=== PATIENT | female | born 1950 | race Caucasian/White ===

== ENCOUNTER 2016-10-22 12:16 | Inpatient (IN) ==
[2016-10-22 12:50] LABS: Basophils % 0.1 %; Eosinophils % 0.1 %; Hemoglobin 10.5 g/dL (11.5-15.4); Immature Granulocytes % 0.7 % (0-4); Lymphocytes # 1.1 K/mcL (0.6-4.6); Lymphocytes % 6.7 %; Mean Corpuscular HGB Conc 30.9 g/dL (31.6-35.5); Mean Corpuscular Hemoglobin 26.3 pg (28.0-33.3); Mean Corpuscular Volume 85.2 fL (83.0-100.0); Monocytes # 0.6 K/mcL (0.0-1.3); Neutrophils # 14.1 K/mcL (1.6-8.9); Platelet Count 369 K/mcL (140-400); Red Blood Count 3.99 M/mcL (3.82-4.97); Red Cell Distribution Width 15.1 % (11.5-14.5); Segmented Neutrophils % 88.4 %
[2016-10-22] MEDS ORDERED: Ondansetron 4 MG/2 ML VIAL IV ONE (12:59)
[2016-10-22] MEDS ORDERED: *HR* HYDROmorphone (PF) 1 MG/ML SYRINGE IV ONE (12:59)
[2016-10-22 13:02] LABS: INR 1.3; Prothrombin Time 14.3 Seconds (9.4-12.1)
[2016-10-22 13:04] LABS: Activated Partial Thrombo Time 29.4 Seconds (26.0-36.0)
[2016-10-22 13:06] LABS: Albumin 2.6 g/dL (3.5-5.0); Albumin/Globulin Ratio 0.5 (1.1-2.2); Bilirubin,Direct 0.3 mg/dL (0.0-0.5); Bilirubin,Indirect 0.2 mg/dL (0.0-1.2); Bilirubin,Total 0.5 mg/dL (0.2-1.2); Calcium 9.4 mg/dL (8.6-10.8); Globulin 4.9 g/dL (2.4-3.5); Magnesium 2.2 mg/dL (1.6-2.6); Potassium 4.7 mEq/L (3.5-4.5); Total Protein 7.5 g/dL (6.0-8.3)
[2016-10-22] MEDS ORDERED: Levofloxacin 750 MG/150 ML 750 MG/150 ML BAG IVPB ONE (13:44)
[2016-10-22] MEDS ORDERED: Ipratropium/Albuterol Neb 3 ML IH ONE (13:44)
--- NOTE | 2016-10-22 13:46 | Emergency Department Note ---
Disposition Clinical Impression: Community acquired pneumonia, CONNOR (acute kidney injury), Dehydration Dyspnea Qualifiers: Dyspnea type: dyspnea on exertion Qualified Code(s): R06.09 - Other forms of dyspnea Disposition: Admitted As Inpatient Condition: Good Referrals: Georgina Kennedy MD [Primary Care Provider] - Forms: ED Satisfaction Letter SOB HPI - General Chief Complaint: ED Shortness of Breath/Dyspnea Stated Complaint: JENNIFER Time Seen by Provider: 10/22/16 12:20 Source: patient, EMS Limitations: no limitations Nursing Notes Reviewed: Yes Vital Signs Reviewed: Yes - History of Present Illness Patient is a 66-year-old female who is a current diagnosis of bladder cancer but is not started treatment is here for 3 days of cough and chills. She states she is having some right-sided chest wall pain and complains of cough and scant sputum production and shortness of breath. Also note she has a history of tachyarrhythmia with 2 ablations and 2 cardioversions in the past and just recently within the last week. Amiodarone due to lack of efficacy by Dr. Silvestre Pt Subjective Complaint: shortness of breath, cough Onset (ago): day(s) (3) Context: recent illness Severity: moderate Consistency/Duration: intermittent Improves with: nothing Worsens with: nothing Known history of: COPD, PE Associated symptoms: Reports: chest pain (right sided), pain with inspiration, fever, cough Treatment prior to arrival: none Cough present: Yes Cough Description: Involuntary Cough Frequency: Intermittent - Related Data Home Medications Medication Instructions Recorded Confirmed Amiodarone [Cordarone] 200 mg PO HS 08/21/16 08/21/16 Atorvastatin [Lipitor] 40 mg PO HS 08/21/16 08/21/16 Lactobacillus Combo No.10 1 each PO HS 08/21/16 08/21/16 [Probiotic] Lisinopril [Zestril] 40 mg PO HS 08/21/16 08/21/16 Metoprolol [Lopressor] 50 mg PO BID 08/21/16 08/21/16 Multivitamin [Multi-Day Vitamins] 1 each PO DAILY 08/21/16 08/21/16 Previous Rx's Medication Instructions Recorded Docusate [Colace] 100 mg PO BID PRN #60 capsule 08/22/16 OxyCODONE/APAP 5/325 [Percocet 1 each PO Q4HR PRN #15 tablet 08/22/16 5/325 MG] Allergies Allergy/AdvReac Type Severity Reaction Status Date / Time No Known Allergies Allergy Verified 08/21/16 09:40 All systems ED: reviewed and negative except as stated. Constitutional: Reports: chills Cardiovascular: Reports: chest pain Respiratory: Reports: cough, dyspnea Past Medical History - Past Medical History Source: patient, old records reviewed, obtained from family, nursing notes reviewed Medical history: Reports: cancer, COPD, DVT, GERD, hyperlipidemia, hypertension Surgical history: Reports: other Psychiatric history: Reports: anxiety, depression - Social History Smoking Status: Current every day smoker Smokeless Tobacco Status: No Alcohol use: Reports: none Drug use: Reports: none Physical Exam - General Limitations: no limitations General appearance: alert, in distress - Head Head exam: atraumatic, normocephalic, normal inspection - Eye Eye exam: Present: normal appearance, PERRL, EOMI - Expanded Eye Exam Pupils: Left: reactive - ENT ENT exam: normal exam, normal oropharynx, mucous membranes moist - Expanded ENT Exam External ear exam: Present: normal external inspection Mouth exam: Present: normal external inspection Teeth exam: Present: normal inspection Throat exam: Present: normal inspection - Neck Neck exam: Present: normal inspection, full ROM, trachea midline - Chest Chest inspection: Present: normal inspection, symmetric chest wall rise - Respiratory Respiratory exam: Present: prolonged expiratory phase - Cardiovascular Cardiovascular exam: Present: tachycardia - Abdominal Exam Abdominal exam: Present: soft, Non-Tender. Absent: tenderness, distention, guarding, rebound, rigidity - Extremities Exam Extremities exam: Present: normal inspection, full ROM. Absent: tenderness, pedal edema - Expanded Upper Extremity Exam Shoulder exam: Present: normal inspection, full ROM Arm exam: Present: normal inspection, full ROM Elbow exam: Present: normal inspection, full ROM Forearm/Wrist exam: Present: normal inspection, full ROM Hand exam: Present: normal inspection, full ROM Vascular exam: Normal: capillary refill, radial pulse - Expanded Lower Extremity Exam Hip/Pelvis exam: Present: normal inspection, full ROM Upper leg exam: Present: normal inspection, full ROM Knee exam: Present: normal inspection, full ROM Lower leg exam: Present: normal inspection, full ROM Ankle exam: Present: normal inspection, full ROM Foot/toe exam: Present: normal inspection, full ROM Neurovascular/Tendon exam: Absent: motor deficit, sensory deficit, tendon deficit - Back Exam Back exam: Present: normal inspection, full ROM. Absent: tenderness - Neurological Exam Neurological exam: Present: alert, oriented X3 - Expanded Neurological Exam Patient oriented to: Present: person, place, time Coma Scale Eye Opening: Spontaneous Coma Scale Motor Response: Obeys Commands Coma Scale Verbal Response: Oriented Coma Scale Total: 15 - Psychiatric Psychiatric exam: Present: normal affect, normal mood - Skin Skin exam: Present: warm, dry, intact, normal color Course Vital Signs Temperature 98.8 F 10/22/16 12:18 Pulse Rate 128 10/22/16 12:18 Respiratory Rate 24 10/22/16 12:18 Blood Pressure 106/80 10/22/16 12:18 O2 Sat by Pulse Oximetry 89 10/22/16 12:18 Temperature 98.8 F 10/22/16 12:18 Pulse Rate 128 10/22/16 13:33 Respiratory Rate 18 10/22/16 13:59 Blood Pressure 104/70 10/22/16 13:33 O2 Sat by Pulse Oximetry 96 10/22/16 13:59 Oxygen Delivery Oxygen Delivery Nasal Cannula Shortness of Breath/Dyspnea - [facility] Narrative Medical decision making narrative: The patient has acute kidney injury so today we will be unable to order a CTA of her chest she does have a history of PE we will start her on heparin protocol she will be admitted to the medicine service. - Differential Diagnosis Likely: acute exacerbation of chronic obstructive airways disease, congestive heart failure, pneumonia, asthma with exacerbation, pulmonary embolism, pneumothorax, arrhythmia - Medical Records Medical records reviewed: Yes I reviewed the patient's medical records. - Lab Data Result diagrams: 10/22/16 12:41 10/22/16 12:41 Lab Results 10/22/16 10/22/16 10/22/16 Range/Units 12:41 12:41 12:41 WBC 15.9 H (4.3-11.1) K/mcL RBC 3.99 (3.82-4.97) M/mcL Hgb 10.5 L (11.5-15.4) g/dL Hct 34.0 L (35.3-44.9) % MCV 85.2 (83.0-100.0) fL MCH 26.3 L (28.0-33.3) pg MCHC 30.9 L (31.6-35.5) g/dL RDW 15.1 H (11.5-14.5) % Plt Count 369 (140-400) K/mcL MPV 10.0 (9.4-12.4) fL Immature Gran % 0.7 (0-4) % Seg Neutrophils % 88.4 % Lymphocytes % 6.7 % Monocytes % 4.0 % Eosinophils % 0.1 % Basophils % 0.1 % Neutrophils # 14.1 H (1.6-8.9) K/mcL Lymphocytes # 1.1 (0.6-4.6) K/mcL Monocytes # 0.6 (0.0-1.3) K/mcL Eosinophils # 0.0 (0.0-0.6) K/mcL Basophils # 0.0 (0.0-0.2) K/mcL PT 14.3 H (9.4-12.1) Seconds INR 1.3 APTT 29.4 (26.0-36.0) Seconds D-Dimer 2187 H (0-500) ng/mLFEU Sodium 138 (136-145) mEq/L Potassium 4.7 H (3.5-4.5) mEq/L Chloride 104 (98-109) mEq/L Carbon Dioxide 22 (19-29) mEq/L BUN 37 H (7-20) mg/dL Creatinine 1.89 H (0.57-1.11) mg/dL Est GFR ( Amer) 32 L (> 60) Est GFR (Non-Af Amer) 27 L (> 60) BUN/Creatinine Ratio 20 (6-26) Glucose 100 H (70-99) mg/dL Calculated Osmolality 295 (280-300) Lactic Acid (0.5-2.2) mmol/L Calcium 9.4 (8.6-10.8) mg/dL Magnesium 2.2 (1.6-2.6) mg/dL Total Bilirubin 0.5 (0.2-1.2) mg/dL Direct Bilirubin 0.3 (0.0-0.5) mg/dL Indirect Bilirubin 0.2 (0.0-1.2) mg/dL AST 11 (5-34) Units/L ALT 11 (0-55) Units/L Alkaline Phosphatase 120 (38-126) Units/L Troponin I (0-0.03) ng/mL Serum Total Protein 7.5 (6.0-8.3) g/dL Albumin 2.6 L (3.5-5.0) g/dL Globulin 4.9 H (2.4-3.5) g/dL Albumin/Globulin Ratio 0.5 L (1.1-2.2) 10/22/16 10/22/16 Range/Units 12:41 12:41 WBC (4.3-11.1) K/mcL RBC (3.82-4.97) M/mcL Hgb (11.5-15.4) g/dL Hct (35.3-44.9) % MCV (83.0-100.0) fL MCH (28.0-33.3) pg MCHC (31.6-35.5) g/dL RDW (11.5-14.5) % Plt Count (140-400) K/mcL MPV (9.4-12.4) fL Immature Gran % (0-4) % Seg Neutrophils % % Lymphocytes % % Monocytes % % Eosinophils % % Basophils % % Neutrophils # (1.6-8.9) K/mcL Lymphocytes # (0.6-4.6) K/mcL Monocytes # (0.0-1.3) K/mcL Eosinophils # (0.0-0.6) K/mcL Basophils # (0.0-0.2) K/mcL PT (9.4-12.1) Seconds INR APTT (26.0-36.0) Seconds D-Dimer (0-500) ng/mLFEU Sodium (136-145) mEq/L Potassium (3.5-4.5) mEq/L Chloride (98-109) mEq/L Carbon Dioxide (19-29) mEq/L BUN (7-20) mg/dL Creatinine (0.57-1.11) mg/dL Est GFR ( Amer) (> 60) Est GFR (Non-Af Amer) (> 60) BUN/Creatinine Ratio (6-26) Glucose (70-99) mg/dL Calculated Osmolality (280-300) Lactic Acid 0.9 (0.5-2.2) mmol/L Calcium (8.6-10.8) mg/dL Magnesium (1.6-2.6) mg/dL Total Bilirubin (0.2-1.2) mg/dL Direct Bilirubin (0.0-0.5) mg/dL Indirect Bilirubin (0.0-1.2) mg/dL AST (5-34) Units/L ALT (0-55) Units/L Alkaline Phosphatase (38-126) Units/L Troponin I 0.00 (0-0.03) ng/mL Serum Total Protein (6.0-8.3) g/dL Albumin (3.5-5.0) g/dL Globulin (2.4-3.5) g/dL Albumin/Globulin Ratio (1.1-2.2) - Radiology Data Radiology results reviewed: Yes I reviewed the patient's radiology results. - EKG Data EKG attestation: Yes I reviewed and interpreted this EKG. Rate: Reports: tachycardia Rhythm: Reports: NSR [place]/QRS: Reports: RBBB Interpretation: Reports: nonspecific ST-T wave changes Critical Care Time Critical Care Time: Yes Total Critical Care Time: 40 Attestation: Critical care performed: Time is exclusive of separately billable procedures. Time includes: direct patient care, patient reassessment, coordination of patient care, interpretation of data (laboratory data, radiology data, and respiratory data), review of patient's medical records, medical consultation and documentation of patient care. Procedures included in critical care time: Procedures excluded from critical care time:
[2016-10-22] MEDS ORDERED: *HR* Heparin 5,000 UNIT/ML VIAL IVP ONE (14:18)
[2016-10-22] MEDS ORDERED: *HR* Heparin 5,000 UNIT/ML VIAL IVP PRN ×2 (14:18)
[2016-10-22] MEDS ORDERED: Heparin 25,000 UNIT/500 ML D5W 25,000 UNIT/500 ML MLS IVC SCH (14:30)
[2016-10-22] MEDS: 0.9 % Sodium Chloride 1,000 ML IVC SCH ×2 (14:35→20:30)
[2016-10-22 15:18] LABS: Hematocrit 30.3 % (35.3-44.9); Hemoglobin 9.3 g/dL (11.5-15.4); Mean Corpuscular HGB Conc 30.7 g/dL (31.6-35.5); Mean Corpuscular Hemoglobin 26.3 pg (28.0-33.3); Mean Corpuscular Volume 85.6 fL (83.0-100.0); Mean Platelet Volume 10.1 fL (9.4-12.4); Platelet Count 318 K/mcL (140-400); Red Blood Count 3.54 M/mcL (3.82-4.97); Red Cell Distribution Width 15.2 % (11.5-14.5)
[2016-10-22] MEDS ORDERED: Amiodarone Premix 150 MG/100 ML BAG IVPB ONE (16:28)
[2016-10-22] MEDS ORDERED: Amiodarone Premix 360 MG/200 ML BAG IVC ONE (16:36)
[2016-10-22] MEDS ORDERED: Amiodarone Premix 360 MG/200 ML BAG IVC SCH (16:45)
[2016-10-22] MEDS: predniSONE 20 MG TABLET PO SCH (17:00)
--- NOTE | 2016-10-22 18:00 | Internal Med History&Physical ---
Date of Encounter: 10/22/16 Time of Encounter: 17:57 Assessment and Plan (1) Suspected pulmonary embolism Current visit: Yes Status: Acute Discuss the case with urology service to results of VQ scan are available patient will be kept empirically on heparin drip. Watch for signs of urinary bleeding. IV contrast will be risky because creatinine is 1.89. (2) Atrial flutter Current visit: Yes Status: Acute Amiodarone has been discontinued a week ago because of concern over interaction with other medications for her cancerlike zofran etc... Discussed with cardiology service restart amiodarone drip. She is currently in atrial flutter rate 120. She was taken off anticoagulation for her a fib/flutter because of urethral bleeding Qualifiers: Qualified Code(s): I48.92 - Unspecified atrial flutter (3) Bladder tumor Current visit: No Status: Acute She supposed to follow-up with oncology for decision regarding chemotherapy (4) Community acquired pneumonia Current visit: Yes Status: Acute Zosyn. I will cover Pseudomonas because of recent hospitalization within the past 3 months (5) CONNOR (acute kidney injury) Current visit: Yes Status: Acute Hydration. She received a liter of fluid in the ER continue normal saline 100 ml/h Internal Medicine - H&P: HPI Chief complaint: chest pain and cough History of present illness: Ms. Felton is a 66 year old female who presents to the emergency room today with the main complain of chest pain and cough. 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 For the past 2 days she has been noticing severe pleuritic chest pain in the right lower and upper chest worsens with deep inspiration or coughing. Her cough is nonproductive. She notices shortness of breath with any exertion. No reported fever that she had chills. She denies any current hematuria. Past Med Surg Social Fam HX - Past Medical History Medical history: cancer, COPD, DVT, GERD, hyperlipidemia, hypertension Psychiatric history: anxiety, depression - Past Surgical History Surgical History: other - Social History Smoking Status: Current every day smoker Smokeless Tobacco Status: No Alcohol use: none Drug use: none Internal Medicine - H&P: Meds Amiodarone [Cordarone] 200 mg PO HS 08/21/16 [History] Atorvastatin [Lipitor] 40 mg PO HS 08/21/16 [History] Lactobacillus Combo No.10 [Probiotic] 1 cap PO HS 08/21/16 [History] Lisinopril [Zestril] 40 mg PO HS 08/21/16 [History] Metoprolol [Lopressor] 50 mg PO BID 08/21/16 [History] Multivitamin [Multi-Day Vitamins] 1 tab PO DAILY 08/21/16 [History] Docusate [Colace] 100 mg PO BID PRN #60 capsule 08/22/16 [Rx] OxyCODONE/APAP 5/325 [Percocet 5/325 MG] 1 tab PO Q4HR PRN 10/22/16 [History] Allergies No Known Allergies Allergy (Verified 08/21/16 09:40) All Systems PM: A 10-system review of systems was performed and is negative for pertinent findings except as documented above in the HPI. Review of systems: 10 points of view of systems is negative except for HPI - Constitutional Vitals: Temp Pulse Resp BP Pulse Ox 98.8 F 91 20 85/60 97 10/22/16 12:18 10/22/16 17:01 10/22/16 17:11 10/22/16 17:11 10/22/16 17:01 Exam: Gen.: patient is alert oriented not in distress. Cardiac: Normal S1 S2 no additional sounds or murmurs chest: diminished air entry in right base abdomen soft nontender nondistended normal bowel sounds lower extremity: lax calf muscles neuro no focal deficit Internal Med - H&P Results - Labs CBC & Chem 7: 10/22/16 15:11 10/22/16 12:41
--- NOTE | 2016-10-22 18:13 | Urology - Consult Note ---
Date of Encounter: 10/22/16 Time of Encounter: 18:11 - Assessment and Plan (1) Bladder cancer Current Visit: Yes Status: Acute Assessment and plan: Patient has T2 bladder cancer likely higher stage secondary to fixation of bladder on pelvic examination during exam and anesthesia. Okay for patient to start anticoagulation as needed for possible pulmonary embolism. We will manage hematuria if it develops as needed. 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 The patient had stopped her atrial fibrillation anticoagulation medication secondary to bleeding. Patient states that she has been having clear urine since the surgery. Patient was admitted today secondary to acute shortness of breath. Primary team has a concern for pulmonary embolism. Her serum creatinine is also up to 1.8. Her last CT scan was in July of this year which showed no hydronephrosis. Primary team may want to start anticoagulation and requested my opinion. To note the patient did state that she went to [facility] for evaluation of her T2 bladder cancer. Patient was told that she needed neoadjuvant chemotherapy. She was sent to [place] for this even though the patient lives in [place]. Patient was unsure why this was done. She has not started chemotherapy. Past Med Surg Social Fam HX - Past Medical History Medical history: cancer, COPD, DVT, GERD, hyperlipidemia, hypertension Psychiatric history: anxiety, depression - Past Surgical History Surgical History: other - Social History Smoking Status: Current every day smoker Smokeless Tobacco Status: No Alcohol use: none Drug use: none Medications and Allergies Amiodarone [Cordarone] 200 mg PO HS 08/21/16 [History] Atorvastatin [Lipitor] 40 mg PO HS 08/21/16 [History] Lactobacillus Combo No.10 [Probiotic] 1 cap PO HS 08/21/16 [History] Lisinopril [Zestril] 40 mg PO HS 08/21/16 [History] Metoprolol [Lopressor] 50 mg PO BID 08/21/16 [History] Multivitamin [Multi-Day Vitamins] 1 tab PO DAILY 08/21/16 [History] Docusate [Colace] 100 mg PO BID PRN #60 capsule 08/22/16 [Rx] OxyCODONE/APAP 5/325 [Percocet 5/325 MG] 1 tab PO Q4HR PRN 10/22/16 [History] Allergies No Known Allergies Allergy (Verified 08/21/16 09:40) Review of Systems - Constitutional no chills - EENT Nose, mouth and throat: no dizziness - Cardiovascular chest pain - Respiratory dyspnea - Gastrointestinal no abdominal pain - Musculoskeletal no back pain - Integumentary no erythema - Neurological no confusion - Psychiatric no anxiety Exam Initial Vital Signs Temp Pulse Resp BP Pulse Ox 98.8 F 128 24 106/80 89 10/22/16 12:18 10/22/16 12:18 10/22/16 12:18 10/22/16 12:18 10/22/16 12:18 - General physical appearance Present: well developed - Eyes Present: PERRL - ENT Present: normal nares - Neck Present: no masses - Respiratory Present: other (Mild to moderate difficulties breathing) Urology Results - Labs 10/22/16 15:11 10/22/16 12:41 Abnormal lab results WBC 14.2 K/mcL (4.3-11.1) H 10/22/16 15:11 RBC 3.54 M/mcL (3.82-4.97) L 10/22/16 15:11 Hgb 9.3 g/dL (11.5-15.4) L 10/22/16 15:11 Hct 30.3 % (35.3-44.9) L 10/22/16 15:11 MCH 26.3 pg (28.0-33.3) L 10/22/16 15:11 MCHC 30.7 g/dL (31.6-35.5) L 10/22/16 15:11 RDW 15.2 % (11.5-14.5) H 10/22/16 15:11 Neutrophils # 14.1 K/mcL (1.6-8.9) H 10/22/16 12:41 PT 14.3 Seconds (9.4-12.1) H 10/22/16 12:41 D-Dimer 2187 ng/mLFEU (0-500) H 10/22/16 12:41 Potassium 4.7 mEq/L (3.5-4.5) H 10/22/16 12:41 BUN 37 mg/dL (7-20) H 10/22/16 12:41 Creatinine 1.89 mg/dL (0.57-1.11) H 10/22/16 12:41 Est GFR ( Amer) 32 (> 60) L 10/22/16 12:41 Est GFR (Non-Af Amer) 27 (> 60) L 10/22/16 12:41 Glucose 100 mg/dL (70-99) H 10/22/16 12:41 Creatine Kinase 22 Units/L (29-168) L 10/22/16 12:41 Albumin 2.6 g/dL (3.5-5.0) L 10/22/16 12:41 Globulin 4.9 g/dL (2.4-3.5) H 10/22/16 12:41 Albumin/Globulin Ratio 0.5 (1.1-2.2) L 10/22/16 12:41 All other labs normal. Consult Discharge Plan - Plan Referrals: Georgina Kennedy MD [Primary Care Provider] -
--- NOTE | 2016-10-22 18:30 | Cardiology Consult Note ---
Date of Encounter: 10/22/16 Time of Encounter: 18:26 Assessment and Plan (1) Bladder tumor Current Visit: No Status: Acute She supposed to follow-up with oncology for decision regarding chemotherapy Per Cardiology - watch closely for urologic bleeding. (2) Dyspnea Current Visit: Yes Status: Acute Qualifiers: Dyspnea type: dyspnea on exertion Qualified Code(s): R06.09 - Other forms of dyspnea (3) Atrial flutter Current Visit: Yes Status: Acute Per Cardiology No great treatment options for BP. Amio gtt is reasonable Short term - patient would like something different. Will give 2 doses IV Dig tonight Reassess HR in the morning. Qualifiers: Qualified Code(s): I48.92 - Unspecified atrial flutter Discussion w patient/family: The assessment and plan as outlined above was discussed with the patient and/or family members who expressed understanding and agreement. All questions were answered. Thank you for involving us in the care of your patient. Please call with any questions. History of Present Illness Consult date: 10/22/16 Consult reason: Tachycardia, Aflutter Chief complaint: SOB History of present illness: Ms. Felton is a 66 year old female Well known to Dr. Silvestre with a h/o Atrial arrythmias - previously on Amio, which was stopped recently. She also has known Bladder cancer - needing Chemo. Given recent concerns and efficacy of Amio as well as possible interactions, this med was stopped. Nonetheless, the patient presents with a few day h/o progressive SOB - ultimately admitted thru the ER today. Work up for SOB is ongoing ? PNA or PE. Nonetheless, she is on A/c. In the presence of the above, she has been noted to be Tachy with HRs in the 120 's-130s with a low BP. Given this CV consult requested to manage meds for HR control. Other than SOB and her chronic nausea she denies any complaints at this time to me. Of note she is not eager to use Amio due to inability to give her nausea meds. Past Med Surg Social Fam HX - Past Medical History Medical history: cancer, COPD, DVT, GERD, hyperlipidemia, hypertension Psychiatric history: anxiety, depression - Past Surgical History Surgical History: other - Social History Smoking Status: Current every day smoker Smokeless Tobacco Status: No Alcohol use: none Drug use: none Medications and Allergies Amiodarone [Cordarone] 200 mg PO HS 02/20/17 [History] Atorvastatin [Lipitor] 40 mg PO HS 08/21/16 [History] Lactobacillus Combo No.10 [Probiotic] 1 cap PO HS 08/21/16 [History] Lisinopril [Zestril] 40 mg PO HS 08/21/16 [History] Metoprolol [Lopressor] 50 mg PO BID 08/21/16 [History] Multivitamin [Multi-Day Vitamins] 1 tab PO DAILY 08/21/16 [History] Docusate [Colace] 100 mg PO BID PRN #60 capsule 08/22/16 [Rx] OxyCODONE/APAP 5/325 [Percocet 5/325 MG] 1 tab PO Q4HR PRN 10/22/16 [History] Allergies No Known Allergies Allergy (Verified 08/21/16 09:40) All Systems Review: A 10-system review of systems was performed and is negative for pertinent findings except as documented above in the HPI. - Cardiovascular Cardiovascular: dyspnea at rest, dyspnea on exertion, rapid heart rate - Respiratory Respiratory: dyspnea - Gastrointestinal Gastrointestinal: nausea Physical Examination BP at bedside ~ 80-90s Systolic with HR ~ 100-120. RR- 16 General: Conversant, No Apparent Distress HEENT: Atraumatic, Mucus Membranes Moist Neck: No JVD, Normal carotid pulses Cardiac: Normal S1 and S2, Other (Tachy - HR ~110 while at bedside. ) Lungs: Normal Breath Sounds, No Wheeze, Rales, Rhonchi Neuro: Alert and responsive, No focal deficits noted Abdomen: Soft, Non-Tender Skin: No rashes noted on visualized skin Musculoskeletal: No Chest Wall Tenderness Extremities: No Clubbing, No Cyanosis Results 10/22/16 15:11 10/22/16 12:41 - EKG Interpretation EKG results cardiology: personally reviewed (Probable Aflutter with RVR) Consult Discharge Plan - Plan Referrals: Georgina Kennedy MD [Primary Care Provider] -
[2016-10-22] MEDS: Piperacillin/Tazobactam 3.375 GM in D5% in Water (Mini-Bag+) 100 ML IVPB SCH (20:30)
[2016-10-22] MEDS: *HR* Digoxin 0.5 MG/2 ML AMPUL IVP SCH (20:46)
[2016-10-22] MEDS: *HR* Morphine 2 MG/ML SYRINGE IVP PRN (20:46)
[2016-10-22] MEDS: Famotidine 20 MG/2 ML VIAL IVP SCH (20:46)
[2016-10-22] MEDS ORDERED: *HR* Promethazine 25 MG/ML VIAL IVP ONE (23:29)
[2016-10-22] MEDS ORDERED: *HR* HYDROmorphone (PF) 1 MG/ML SYRINGE IVP ONE (23:29)
[2016-10-23 00:35] LABS: Basophils % 0.1 %; Eosinophils % 0.4 %; Hematocrit 27.7 % (35.3-44.9); Hemoglobin 8.5 g/dL (11.5-15.4); Immature Granulocytes % 0.6 % (0-4); Lymphocytes # 1.2 K/mcL (0.6-4.6); Lymphocytes % 12.7 %; Mean Corpuscular HGB Conc 30.7 g/dL (31.6-35.5); Mean Corpuscular Hemoglobin 27.1 pg (28.0-33.3); Mean Corpuscular Volume 88.2 fL (83.0-100.0); Mean Platelet Volume 10.5 fL (9.4-12.4); Monocytes # 0.5 K/mcL (0.0-1.3); Monocytes % 5.5 %; Neutrophils # 7.7 K/mcL (1.6-8.9); Platelet Count 277 K/mcL (140-400); Red Blood Count 3.14 M/mcL (3.82-4.97); Red Cell Distribution Width 15.3 % (11.5-14.5); Segmented Neutrophils % 80.7 %
[2016-10-23 00:46] LABS: Calcium 8.5 mg/dL (8.6-10.8); Potassium 4.4 mEq/L (3.5-4.5)
[2016-10-23] MEDS: *HR* Morphine 2 MG/ML SYRINGE IVP PRN ×5 (01:23→23:07)
[2016-10-23] MEDS ORDERED: *HR* Digoxin 0.5 MG/2 ML AMPUL ONE (03:55)
[2016-10-23] MEDS: *HR* Digoxin 0.5 MG/2 ML AMPUL IVP SCH ×3 (04:05→15:34)
[2016-10-23] MEDS: Piperacillin/Tazobactam 3.375 GM in D5% in Water (Mini-Bag+) 100 ML IVPB SCH ×2 (05:44→15:32)
[2016-10-23] MEDS: Famotidine 20 MG/2 ML VIAL IVP SCH (05:44)
[2016-10-23] MEDS: 0.9 % Sodium Chloride 1,000 ML IVC SCH ×6 (05:57→18:14)
[2016-10-23] MEDS: predniSONE 20 MG TABLET PO SCH (08:34)
--- NOTE | 2016-10-23 09:23 | Cardiology Progress Note ---
Date of Encounter: 10/23/16 Time of Encounter: 09:20 Assessment and Plan (1) Atrial fibrillation and flutter Current Visit: Yes Status: Chronic Known hx of A-Fib and Flutter. PO Amiodarone was stopped on Sunday by Dr. Malik Silvestre since it was not effective in rhythm control. Now RVR rate up to 120s. Amiodarone gtt was ordered overnight, which pt refused since it was recently stopped by Dr. Silvestre. IV Digoxin loading was ordered. She has received 2 doses of 0.125mg IV. Will give 2 doses of 0.250mg 6 hours apart to help with rate control. BP currently >110 systolic. Will consider low dose BB if BP will tolerate. Continue to monitor and see how pt responds to digoxin. Pt reports worsened dyspnea. Will check echo. Pt denies chest pain or palpitations. Pt was previously on Eliquis for anticoagulation, but developed hematuria in setting of bladder tumor, so anticoagulation was stopped. Currently on heparin gtt, but HGB has dropped from 10.5 to 9.3, then 8.5. Will stop heparin gtt and start DVT prophylaxis heparin dosing. Continue to follow. (2) Dyspnea Current Visit: Yes Status: Acute Acute onset of worsened dyspnea. CXR possible PNA with effusion. VQ scan low probability for PE. Echo 2014 EF 50% with normal diastolic function. Recheck echo. Qualifiers: Dyspnea type: dyspnea on exertion Qualified Code(s): R06.09 - Other forms of dyspnea Discussion w patient/family: The assessment and plan as outlined above was discussed with the patient and/or family members who expressed understanding and agreement. All questions were answered. Thank you for involving us in the care of your patient. Please call with any questions. I will discuss all the above with Dr. Cade and make changes as necessary. Subjective Principal diagnosis: A-Fib/flutter, Bladder cancer Interval history: Pt complains of severe right upper quadrant pain and dyspnea this AM. Denies chest pain or palpitations. 24 hour tele AVG HR 92, A-Fib/Flutter. Pt refused IV amiodarone overnight because Dr. Malik Silvestre stopped her PO Amiodarone as outpt on Sunday, stating it was not working. She has received 2 doses of IV Digoxin. HR currently as high as 120s at bedside. Objective Vital Signs, Last 4 Hours Temp Pulse Resp BP Pulse Ox 10/23/16 07:22 98.1 F 87 18 114/74 95 Vital Signs Temp Pulse Resp BP Pulse Ox 10/23/16 07:22 98.1 F 87 18 114/74 95 10/23/16 04:30 83 10/23/16 03:24 98.0 F 84 17 116/75 96 10/23/16 00:05 99 10/22/16 23:24 98.3 F 98 19 119/72 97 10/22/16 20:30 93 10/22/16 20:09 98.6 F 120 18 118/80 95 10/22/16 18:20 98.1 F 99 20 103/73 94 10/22/16 18:10 96 92 10/22/16 17:11 20 85/60 10/22/16 17:01 91 18 85/60 97 10/22/16 16:19 91 20 88/59 97 10/22/16 15:20 111 20 88/68 96 10/22/16 14:41 125 20 96/77 96 10/22/16 13:59 18 96 10/22/16 13:33 128 20 104/70 96 10/22/16 13:08 128 20 126/88 96 10/22/16 12:25 94 10/22/16 12:18 98.8 F 128 24 106/80 89 Intake and Output 10/22/16 10/23/16 10/23/16 23:59 07:59 15:59 Intake Total 150 / 150 1369 / 1369 Balance 150 / 150 1369 / 1369 Intake: IV Fluids 150 / 150 1369 / 1369 0.9 % Sodium Chloride 1, 1000 / 1000 000 ML @ 80 mls/hr IVC . [id number] [facility] Rx#: [id number] Heparin 25,000 UNIT/500 269 / 269 ML D5W 25,000 unit In 500 ml @ 14 UNIT/KG/HR 19. 178 mls/hr IVC .Q24H [facility] Rx#:[id number] Levaquin 750mg/150 mL 750 150 / 150 mg In 150 ml @ 100 mls/ hr IVPB ONCE ONE Rx#: [id number] Zosyn 3.375 GM In 100 / 100 Dextrose 5% (Minibag+) 100 ML 100 ML @ 25 mls/hr IVPB Q12H [facility] Rx#: [id number] Other: # Urine Diapers 1 1 Weight 69.6 kg Patient Weight 10/23/16 23:59 Weight 69.6 kg General: Conversant HEENT: Atraumatic, Normocephaly, Mucus Membranes Moist Neck: No JVD, Normal carotid pulses Cardiac: Other (irregularly irregular) Lungs: Normal Breath Sounds, No Wheeze, Rales, Rhonchi Neuro: Alert and responsive, No focal deficits noted Abdomen: Soft, Other (RUQ tenderness) Skin: No rashes noted on visualized skin Musculoskeletal: No Chest Wall Tenderness Extremities: No Clubbing, No Cyanosis, No Edema, Normal Pulses Results 10/23/16 00:18 10/23/16 00:18 Lab Results 10/22/16 10/23/16 10/23/16 20:53 00:18 00:18 WBC 9.6 Hgb 8.5 L Hct 27.7 L Plt Count 277 APTT Sodium 138 Potassium 4.4 Chloride 107 Carbon Dioxide 20 BUN 31 H Creatinine 1.64 H Glucose 72 Calcium 8.5 L Magnesium 2.0 Troponin I 0.00 10/23/16 10/23/16 00:18 04:35 WBC Hgb Hct Plt Count APTT 29.4 Sodium Potassium Chloride Carbon Dioxide BUN Creatinine Glucose Calcium Magnesium Troponin I 0.00 Short CBC 10/23/16 10/22/16 10/22/16 Range/Units 00:18 15:11 12:41 WBC 9.6 14.2 H 15.9 H (4.3-11.1) K/mcL Hgb 8.5 L 9.3 L 10.5 L (11.5-15.4) g/dL Hct 27.7 L 30.3 L 34.0 L (35.3-44.9) % Plt Count 277 318 369 (140-400) K/mcL Neutrophils # 7.7 14.1 H (1.6-8.9) K/mcL BMP 10/23/16 10/22/16 Range/Units 00:18 12:41 Sodium 138 138 (136-145) mEq/L Potassium 4.4 4.7 H (3.5-4.5) mEq/L Chloride 107 104 (98-109) mEq/L Carbon Dioxide 20 22 (19-29) mEq/L BUN 31 H 37 H (7-20) mg/dL Creatinine 1.64 H 1.89 H (0.57-1.11) mg/dL Glucose 72 100 H (70-99) mg/dL Calcium 8.5 L 9.4 (8.6-10.8) mg/dL Cardiac Enzymes 10/23/16 10/22/16 10/22/16 Range/Units 00:18 20:53 12:41 Troponin I 0.00 0.00 0.00 (0-0.03) ng/mL Liver Function 10/22/16 Range/Units 12:41 Total Bilirubin 0.5 (0.2-1.2) mg/dL Direct Bilirubin 0.3 (0.0-0.5) mg/dL AST 11 (5-34) Units/L ALT 11 (0-55) Units/L Alkaline Phosphatase 120 (38-126) Units/L Albumin 2.6 L (3.5-5.0) g/dL Impressions Chest X-Ray 10/22/16 12:28 IMPRESSION: Airspace disease at the right lung base may represent pneumonia with suspected small effusion. Asymmetric pulmonary edema could have a similar appearance. Clinical correlation and radiographic follow-up after treatment is recommended. D/ / Tam Parra MD / Tam Parra MD Interpreting Provider: Tam Parra MD Pulmonary Perfusion Imaging 10/22/16 16:55 IMPRESSION: 1. Low probability for pulmonary embolism. 2. Heterogeneous distribution of radiotracer suggestive of chronic obstructive pulmonary disease. D/ / Eduardo Storey MD / Eduardo Storey MD Interpreting Provider: Eduardo Storey MD Active Medications Atorvastatin Calcium (Lipitor) 40 mg PO HS LINDA Stop: 04/23/17 21:01 Last Admin: 10/22/16 20:45 Dose: 40 mg Docusate Sodium (Colace) 100 mg PO BID PRN; Protocol PRN Reason: Constipation Stop: 04/23/17 16:46 Famotidine (Pepcid) 20 mg IVP Q12HR LINDA PRN Reason: Protocol Stop: 04/23/17 18:01 Last Admin: 10/23/16 05:44 Dose: 20 mg Heparin Sodium (Porcine) (Heparin) 4,800 unit 70 unit/kg (4800 unit) IVP Q6HR PRN PRN Reason: SEE COMMENTS Stop: 04/23/17 14:19 Last Admin: 10/23/16 05:43 Dose: 4,800 unit Heparin Sodium (Porcine) (Heparin) 2,400 unit 35 unit/kg (2400 unit) IVP Q6H PRN PRN Reason: SEE COMMENTS Stop: 04/23/17 14:19 Sodium Chloride (0.9 % Sodium Chloride) 1,000 mls @ 3,750 mls/hr IVC .Q16M LINDA Stop: 04/23/17 13:31 Last Admin: 10/23/16 08:55 Dose: Not Given Heparin Sodium/Dextrose (Heparin 25,000 Unit/500 Ml D5w) 25,000 unit in 500 mls @ 19.178 mls/hr IVC .Q24H LINDA; 14 UNIT/KG/HR PRN Reason: Protocol Stop: 04/23/17 14:31 Last Titration: 10/23/16 05:46 Dose: 18.32 unit/kg/hr, 25.1 mls/hr Amiodarone HCl/Dextrose (Amiodarone 360mg/200ml Drip Premix) 360 mg in 200 mls @ 16.667 mls/hr IVC CONT LINDA PRN Reason: 0.5 MG/MIN Stop: 04/23/17 16:46 Last Admin: 10/22/16 21:54 Dose: Not Given Sodium Chloride (0.9 % Sodium Chloride) 1,000 mls @ 80 mls/hr IVC .[id number] LINDA Stop: 04/23/17 16:46 Last Admin: 10/23/16 05:57 Dose: 80 mls/hr Piperacillin Sod/Tazobactam (Sod 3.375 gm/ Dextrose) 100 mls @ 25 mls/hr IVPB Q12H LINDA PRN Reason: Protocol Stop: 04/23/17 17:01 Last Admin: 10/23/16 05:44 Dose: 25 mls/hr Morphine Sulfate (Morphine Sulfate) 1 mg IVP Q4HR PRN PRN Reason: Pain Stop: 04/23/17 16:41 Last Admin: 10/23/16 05:42 Dose: 1 mg Prednisone (Prednisone) 40 mg PO DAILY LINDA Stop: 04/23/17 17:01 Last Admin: 10/23/16 08:34 Dose: 40 mg - Imaging and Cardiology Chest Xray: report reviewed Echo: report reviewed - EKG Interpretation EKG results cardiology: other (24 hour tele AVG HR 92, A-Fib/Flutter) - VTE Documentation of Mechanical Device: Intermittent pneumatic compression device Consult Discharge Plan - Plan Referrals: Georgina Kennedy MD [Primary Care Provider] -
--- NOTE | 2016-10-23 10:03 | Internal Med Progress Note ---
Date of Encounter: 10/23/16 Time of Encounter: 10:01 - Assessment and plan (1) Suspected pulmonary embolism Current Visit: Yes Status: Acute Assessment and plan: Patient presented with significant respiratory distress, pleuritic chest pain and underlying extensive history of malignancy and noted to have very elevated d -dimer. CT angiogram of chest could not be done due to renal dysfunction. Ventilation perfusion lung scan shows low probability of PE. We will get bilateral lower extremity venous Dopplers and continue anticoagulation with IV heparin if positive. Patient is noted to have almost 2 g drop in hemoglobin, continue to monitor closely while on anticoagulation. Urology on board for possible hematuria related to underlying urothelial malignancy. (2) Community acquired pneumonia Current Visit: Yes Status: Acute Assessment and plan: Chest x-ray reviewed independently, shows right lower lobe infiltrates. Continue IV antibiotics-Zosyn due to multiple recent health care facility visits and underlying cancer. Follow-up blood cultures. Continue supportive care and supplemental oxygen. (3) Atrial flutter Current Visit: Yes Status: Chronic Assessment and plan: Patient has a history of atrial flutter, not on long-term anticoagulation due to bleeding from bladder cancer mass. Admitted with atrial flutter with rapid ventricular response and has been started on IV amiodarone drip. However, patient refused to be started on this trip as she has recently been taken off oral amiodarone by her mammalogist as she failed rhythm control with this and it is noted to have interaction with her other medications like Zofran. She received 2 doses of IV digoxin, 0.125 mg last night and cardiology recommends 2 more doses of IV digoxin, 0.25 mg today. We will restart patient' s home dose of metoprolol 50 mg twice daily. Continue telemetry monitoring. High risk for complications. Continue anticoagulation as above. Qualifiers: Atrial flutter type: unspecified Qualified Code(s): I48.92 - Unspecified atrial flutter (4) CONNOR (acute kidney injury) Current Visit: Yes Status: Acute Assessment and plan: Could be related to dehydration and underlying pneumonia. Continue IV hydration and monitor serum creatinine closely. Currently noted to be improving. Avoid nephrotoxic agents and dose medications and antibiotics according to current creatinine clearance. (5) Chest pain Current Visit: Yes Status: Acute Assessment and plan: Patient noted to have severe right-sided pleuritic chest pain associated with nausea this morning. This could be secondary to pulmonary embolism or right lower lobe pneumonia. We will increase IV morphine and give when necessary IV Zofran and for symptomatic relief. Qualifiers: Chest pain type: chest pain on breathing Qualified Code(s): R07.1 - Chest pain on breathing (6) COPD (chronic obstructive pulmonary disease) Current Visit: Yes Status: Chronic Assessment and plan: Not noted to be in acute exacerbation. Continue when necessary bronchodilators and supplemental oxygen. Qualifiers: COPD type: unspecified COPD Qualified Code(s): J44.9 - Chronic obstructive pulmonary disease, unspecified (7) Bladder cancer Current Visit: Yes Status: Chronic Assessment and plan: Noted to have advanced bladder cancer, followed at [facility] and he has been referred to [place] for neoadjuvant chemotherapy. Urology is on board currently to assist in the event of hematuria due to ongoing anticoagulation. Consult appreciated. Qualifiers: Bladder location: overlapping sites Qualified Code(s): C67.8 - Malignant neoplasm of overlapping sites of bladder - Subjective Interval history: Noted to be in distress due to severe right chest wall pain; has dyspnea due to the pain along with nausea; no leg swelling, dizziness, weakness; reports having advanced bladder cancer; also states that her HR has been in 130s for several years as an outpatient and she was recently taken off of her Amiodarone due to failed rhythm control; - Constitutional Vitals: Temp Pulse Resp BP Pulse Ox 98.1 F 87 18 114/74 95 10/23/16 07:22 10/23/16 07:22 10/23/16 07:22 10/23/16 07:22 10/23/16 07:22 General appearance: Present: mild distress, A&O X 3, answers questions appropriately - Respiratory Respiratory exam: Present: decreased breath sounds (at right base), CTAB. Absent: accessory muscle use, rales, rhonchi, wheezes - Cardiovascular Cardiovascular exam: Present: irregular rhythm, +S1, +S2, tachycardia. Absent: diastolic murmur, gallop, rubs, systolic murmur - GI/Abdominal GI/Abdominal exam: Present: normal bowel sounds, soft, no peritoneal signs. Absent: distended, tenderness - Extremities Exam Extremities exam: Present: full ROM, warm, radial pulses palpable and symetrical. Absent: calf tenderness, cyanotic, pedal edema - Neurological Exam Neurological exam: Present: CN II-XII intact, oriented X3, no focal deficits. Absent: pronater drift, facial droop, speech deficit Internal Medicine: Result - Labs CBC & Chem 7: 10/23/16 16:06 10/23/16 00:18 Labs: Short CBC 10/23/16 Range/Units 00:18 WBC 9.6 (4.3-11.1) K/mcL Hgb 8.5 L (11.5-15.4) g/dL Hct 27.7 L (35.3-44.9) % Plt Count 277 (140-400) K/mcL Neutrophils # 7.7 (1.6-8.9) K/mcL BMP 10/23/16 00:18 Sodium 138 Potassium 4.4 Chloride 107 Carbon Dioxide 20 BUN 31 H Creatinine 1.64 H Glucose 72 Calcium 8.5 L Cardiac Enzymes 10/22/16 10/23/16 Range/Units 20:53 00:18 Troponin I 0.00 0.00 (0-0.03) ng/mL - ABG Interpretation ABG results: PT/INR, D-dimer PT 14.3 Seconds (9.4-12.1) H 10/22/16 12:41 D-Dimer 2187 ng/mLFEU (0-500) H 10/22/16 12:41 - VTE Documentation of Mechanical Device: Intermittent pneumatic compression device Consult Discharge Plan - Plan Referrals: Georgina Kennedy MD [Primary Care Provider] - 11/02/16 10:00 am
[2016-10-23] MEDS: Ondansetron 4 MG/2 ML VIAL IVP PRN ×2 (10:18→18:03)
[2016-10-23] MEDS: *HR* OxyCODONE/APAP 5/325 TABLET PO PRN ×2 (11:38→21:01)
[2016-10-23] MEDS ORDERED: *HR* Heparin 5,000 UNIT/ML VIAL IVP ONE (15:30)
[2016-10-23] MEDS ORDERED: *HR* Heparin 5,000 UNIT/ML VIAL IVP PRN (15:30)
--- NOTE | 2016-10-23 16:02 | Electrocardiograph Report ---
[place] [id number] Test Date: 2016-10-22 Pat Name: Coni Felton Department: 105 Room: 2N03 Gender: F Diet Therapist: MELISSA : 1950 Requested By: Juan A Reyes Order Number: [id number] Reading MD: Noel Rendon MD Measurements Intervals [place] Rate: 130 P: 110 WI: 203 QRS: -28 QRSD: 157 T: 61 QT: 356 QTc: 433 Interpretive Statements SINUS TACHYCARDIA RIGHT BUNDLE BRANCH BLOCK Electronically Signed On 10-23-2016 16:01:05 EDT by Noel Rendon MD
--- NOTE | 2016-10-23 16:14 | ECHO - Doppler Report ---
Echo with Saline Contrast Name: Coni Felton Date of Study: 10/23/2016 Date: 1950 Ht: 65.0 in Medical Record#: [id number] Age: 66 Wt: 153.0 lb Gender: Female BSA: 1.77 Order #: [id number] Location: [facility] Room #: 2N3 Reading Physician: Davida Elise DO Digital Strategy Director: Hoa Reyez Ordering Physician: Arnol Lynn MD Primary Physician: None Indications: Aflutter, Possible PE, Look for RV strain Impressions: LVEF 60%. Normal left ventricular size and systolic function. Indeterminate left venticular diastoic function Mildly dilated RV with normal function. Mild mitral regurgitation. Mild tricuspid regurgitation. No pulmonary hypertension. There is no evidence of a PFO with agitated saline contrast. Left Ventricular Wall Motion: Rest Echo Findings All wall segments showed normal motion. Findings: Study Quality * Technically adequate exam. ECG Findings * Atrial fib/flutter. Left Ventricle * LVEF 60%. * Normal LV chamber size, wall thickness and function. * Indeterminate diastolic function. Left Atrium * Mildly dilated left atrium. Mitral Valve * Normal mitral valve structure. * No mitral stenosis. * Mild mitral regurgitation. Aortic Valve * No aortic regurgitation. * Aortic valve not well visualized. * No aortic stenosis. Tricuspid Valve * Tricuspid valve not well visualized. * Mild tricuspid regurgitation. * Estimated RA pressure is 3 mmHg. * Estimated RVSP is 32 mmHg. * No pulmonary hypertension. Pulmonic Valve * Pulmonic valve is not well visualized. * No pulmonic stenosis. * No pulmonic regurgitation. Pulmonary Artery * Pulmonary artery not well visualized. Right Atrium * Normal right atrial size. Right Ventricle * Mildly dilated with normal function. RV is visualized in the PLAX, PSAX, apical views. Only the distal segments of the RV are not well seen in the subcostal view. Lat S Isaías 13.6cm/s. * Interatrial septum demonstrates normal shape through the cardiac cycle in the PSAX images. Interatrial Septum * No evidence of PFO by color Doppler. * No evidence of PFO with agitated saline contrast. IVC * Normal IVC dimensions and inspiratory collapse. Pericardium * There is no pericardial effusion present. Aorta * Normally sized aortic root. History Hypertension Hypercholesteremia History of Smoking Years 45 Packs 1 Family History of CAD History of CAD/PTCA 09/30/2014 a Previous Echo was performed. Contrast: Agitated saline 20 ml. Measurements: BP: 110/ 75 2D Normal Values RVIDd: 3.60 cm <2.7 cm IVSd: 1.10 cm 0.6 - 1.0 cm LVIDd: 4.10 cm 3.7 - 5.6 cm LVPWd: 1.10 cm 0.6 - 1.1 cm LVIDs: 3.10 cm 1.5 - 3.6 cm AO: 3.40 cm < 4.0 cm LA: 4.00 cm 2.0 - 4.0cm %FS: 24.40 cm >25 % LA volume: 57 Mitral Valve Peak E:.58 m/sec Peak A:.70 m/sec E/A Ratio:0.8 Peak E' Lat Isaías:19.5 cm/s Peak E' Med Isaías:8.08 cm/s E/E' Lat Ratio:3 E/E' Med Ratio:7.2 Tricuspid Valve TV Regurg Peak Grad: 29.00mmHg TV Regurg Peak Isaías: 2.67m/sec Updated by Davida Elise on 10/23/2016 4:08:42 PM electronically signed on 10/23/2016 4:11:00 PM with status of Final Wall Motion Lopes: 1=Normal, 2=Hypokinesis, 3=Akinesis, 4=Dyskinesis, 5=Aneurysmal, 6=Hyperkinetic, X=Not Visualized (Blank)=Missing
[2016-10-23 16:55] LABS: Hematocrit 29.7 % (35.3-44.9); Hemoglobin 9.2 g/dL (11.5-15.4); Immature Platelets 3.6 % (1.1-6.1); Mean Corpuscular Hemoglobin 26.7 pg (28.0-33.3); Mean Corpuscular Volume 86.3 fL (83.0-100.0); Mean Platelet Volume 10.7 fL (9.4-12.4); Red Blood Count 3.44 M/mcL (3.82-4.97)
[2016-10-23 17:04] LABS: INR 1.4; Prothrombin Time 15.6 Seconds (9.4-12.1)
[2016-10-23 17:07] LABS: Activated Partial Thrombo Time 30.3 Seconds (26.0-36.0)
--- NOTE | 2016-10-23 17:07 | Urology Progress Note ---
Date of Encounter: 10/23/16 Time of Encounter: 17:06 - Assessment and Plan (1) Bladder cancer Current Visit: Yes Status: Acute Assessment and plan: 66-year-old woman with a history of muscle invasive bladder cancer. She was referred to the [facility] and they had recommended neoadjuvant chemotherapy prior to any surgical resection. She was referred to an affiliated medical oncology group [facility]. She says this is too far for her to drive. I will contact medical oncology tomorrow to see if they can expedite coordination of care with the [facility]. Qualifiers: Bladder location: overlapping sites Qualified Code(s): C67.8 - Malignant neoplasm of overlapping sites of bladder Progress Note Narrative: 66 year old woman with muscle invasive bladder cancer. She has been admitted for atrial flutter. She says she is feeling fairly well today. Objective Initial Vital Signs Temp Pulse Resp BP Pulse Ox 98.8 F 128 24 106/80 89 10/22/16 12:18 10/22/16 12:18 10/22/16 12:18 10/22/16 12:18 10/22/16 12:18 - General physical appearance Present: well developed, well nourished, no distress - Respiratory Present: normal respiratory effort - Abdomen Present: soft - Labs 10/23/16 16:06 10/23/16 00:18 Diabetes panel 10/23/16 Range/Units 00:18 Sodium 138 (136-145) mEq/L Potassium 4.4 (3.5-4.5) mEq/L Chloride 107 (98-109) mEq/L Carbon Dioxide 20 (19-29) mEq/L BUN 31 H (7-20) mg/dL Creatinine 1.64 H (0.57-1.11) mg/dL Glucose 72 (70-99) mg/dL Calcium 8.5 L (8.6-10.8) mg/dL Calcium panel 10/23/16 Range/Units 00:18 Calcium 8.5 L (8.6-10.8) mg/dL Pituitary panel 10/23/16 Range/Units 00:18 Sodium 138 (136-145) mEq/L Potassium 4.4 (3.5-4.5) mEq/L Chloride 107 (98-109) mEq/L Carbon Dioxide 20 (19-29) mEq/L BUN 31 H (7-20) mg/dL Creatinine 1.64 H (0.57-1.11) mg/dL Glucose 72 (70-99) mg/dL Calcium 8.5 L (8.6-10.8) mg/dL Adrenal panel 10/23/16 Range/Units 00:18 Sodium 138 (136-145) mEq/L Potassium 4.4 (3.5-4.5) mEq/L Chloride 107 (98-109) mEq/L Carbon Dioxide 20 (19-29) mEq/L BUN 31 H (7-20) mg/dL Creatinine 1.64 H (0.57-1.11) mg/dL Glucose 72 (70-99) mg/dL Calcium 8.5 L (8.6-10.8) mg/dL - VTE Documentation of Mechanical Device: Intermittent pneumatic compression device Consult Discharge Plan - Plan Referrals: Georgina Kennedy MD [Primary Care Provider] - 11/02/16 10:00 am
[2016-10-23] MEDS ORDERED: *HR* Heparin 5,000 UNIT/ML VIAL SQ SCH (18:00)
[2016-10-23] MEDS: Heparin 25,000 UNIT/500 ML D5W 25,000 UNIT/500 ML MLS IVC SCH (18:13)
[2016-10-24 02:05] LABS: Basophils % 0.1 %; Hemoglobin 8.5 g/dL (11.5-15.4); Immature Granulocytes % 0.5 % (0-4); Lymphocytes # 0.8 K/mcL (0.6-4.6); Lymphocytes % 7.2 %; Mean Corpuscular HGB Conc 30.4 g/dL (31.6-35.5); Mean Corpuscular Hemoglobin 25.9 pg (28.0-33.3); Mean Corpuscular Volume 85.4 fL (83.0-100.0); Mean Platelet Volume 10.5 fL (9.4-12.4); Monocytes # 0.3 K/mcL (0.0-1.3); Monocytes % 3.1 %; Neutrophils # 9.7 K/mcL (1.6-8.9); Platelet Count 302 K/mcL (140-400); Red Blood Count 3.28 M/mcL (3.82-4.97); Segmented Neutrophils % 89.1 %
[2016-10-24 02:20] LABS: Calcium 8.6 mg/dL (8.6-10.8); Potassium 4.9 mEq/L (3.5-4.5)
[2016-10-24] MEDS: *HR* Heparin 5,000 UNIT/ML VIAL IVP PRN ×2 (02:40→09:41)
[2016-10-24] MEDS: *HR* Morphine 2 MG/ML SYRINGE IVP PRN ×3 (04:15→23:37)
[2016-10-24] MEDS: Ondansetron 4 MG/2 ML VIAL IVP PRN (04:20)
[2016-10-24] MEDS: Piperacillin/Tazobactam 3.375 GM in D5% in Water (Mini-Bag+) 100 ML IVPB SCH ×3 (04:40→21:22)
[2016-10-24] MEDS: 0.9 % Sodium Chloride 1,000 ML IVC SCH (06:26)
[2016-10-24] MEDS: *HR* OxyCODONE/APAP 5/325 TABLET PO PRN ×2 (07:30→21:20)
[2016-10-24] MEDS: predniSONE 20 MG TABLET PO SCH (09:38)
[2016-10-24] MEDS: Famotidine 20 MG/2 ML VIAL IVP SCH (09:39)
--- NOTE | 2016-10-24 10:16 | Cardiology Progress Note ---
Date of Encounter: 10/24/16 Time of Encounter: 10:00 Assessment and Plan (1) Atrial fibrillation and flutter Current Visit: Yes Status: Chronic Known hx of A-Fib and Flutter. RVR in the setting of PNA--IV digoxin load given. PO Amiodarone was stopped on Sunday by Dr. Malik Silvestre since it was not effective in rhythm control. Rate now controlled. 12 hour tele: avg HR=66 aflutter. Blood pressure improved, betablocker re-started and is stable. TTE 10/23/16: EF 60%, mildly dilated RV with normal function, mild MR and TR, normal wall mtn. Pt denies chest pain or palpitations. Pt was previously on Eliquis for anticoagulation, but developed hematuria in setting of bladder tumor, so anticoagulation was stopped. Heparin gtt d/c'ed d/t to anemia (H/H acute drop); re-started yesterday evening due to acute DVT--defer further mgmt to primary service. Cardiology will sign-off, please call with questions. Will arrange for outpatient follow-up in 2-3 weeks. (2) Dyspnea Current Visit: Yes Status: Acute Acute onset of worsened dyspnea. Likely secondary to PNA. VQ scan low probability for PE. TTE 10/23/16: EF 60%, normal wall motion. Qualifiers: Dyspnea type: dyspnea on exertion Qualified Code(s): R06.09 - Other forms of dyspnea (3) DVT (deep venous thrombosis) Current Visit: Yes Status: Acute Prelim bilateral LE duplex--DVT left calf. Restarted on Heparin gtt last night. Defer further mgmt of AC to primary service. Qualifiers: DVT location: lower extremity Affected thrombotic vein of extremity: unspecified vein of extremity Laterality: left Chronicity: acute Qualified Code(s): I82.402 - Acute embolism and thrombosis of unspecified deep veins of left lower extremity Discussion w patient/family: The assessment and plan as outlined above was discussed with the patient and/or family members who expressed understanding and agreement. All questions were answered. Thank you for involving us in the care of your patient. Please call with any questions. The patient was discussed and reviewed with Dr. Cade; Cardiology will sign-off , please call with questions. Subjective Principal diagnosis: A-Fib/flutter, Bladder cancer Interval history: Seen and examined Reports frequent cough and weakness today. Denies hematuria or abnormal/unusual bleeding overnight. Denies chest pain or discomfort. Objective Vital Signs, Last 4 Hours Temp Pulse Resp BP Pulse Ox 10/24/16 07:30 71 10/24/16 07:17 97.9 F 92 21 132/85 95 General: Conversant HEENT: Atraumatic, Normocephaly Cardiac: Normal S1 and S2, Other (irregularly irregular) Lungs: Other (Bibasilar diminished) Neuro: Alert and responsive Abdomen: Soft Skin: No rashes noted on visualized skin Musculoskeletal: No Chest Wall Tenderness Extremities: No Edema, Normal Pulses Results 10/24/16 01:04 10/24/16 01:04 Lab Results 10/23/16 10/23/16 10/23/16 11:05 16:06 16:06 WBC 11.3 H Hgb 9.2 L Hct 29.7 L Plt Count 316 INR 1.4 APTT 59.5 H D 30.3 Sodium Potassium Chloride Carbon Dioxide BUN Creatinine Glucose Calcium 10/24/16 10/24/16 10/24/16 01:04 01:04 01:04 WBC 10.9 Hgb 8.5 L Hct 28.0 L Plt Count 302 INR APTT 27.6 Sodium 139 Potassium 4.9 H Chloride 109 Carbon Dioxide 22 BUN 26 H Creatinine 1.48 H Glucose 121 H Calcium 8.6 10/24/16 09:07 WBC Hgb Hct Plt Count INR APTT 37.0 H Sodium Potassium Chloride Carbon Dioxide BUN Creatinine Glucose Calcium Active Medications Atorvastatin Calcium (Lipitor) 40 mg PO HS LINDA Stop: 04/23/17 21:01 Last Admin: 10/23/16 21:01 Dose: 40 mg Docusate Sodium (Colace) 100 mg PO BID PRN; Protocol PRN Reason: Constipation Stop: 04/23/17 16:46 Famotidine (Pepcid) 20 mg IVP DAILY LINDA PRN Reason: Protocol Stop: 04/23/17 18:01 Last Admin: 10/24/16 09:39 Dose: 20 mg Heparin Sodium (Porcine) (Heparin) 4,900 unit 70 unit/kg (4900 unit) IVP Q6HR PRN PRN Reason: SEE COMMENTS Stop: 04/24/17 15:31 Last Admin: 10/24/16 09:41 Dose: 4,900 unit Heparin Sodium (Porcine) (Heparin) 2,400 unit 35 unit/kg (2400 unit) IVP Q6H PRN PRN Reason: SEE COMMENTS Stop: 04/24/17 15:31 Sodium Chloride (0.9 % Sodium Chloride) 1,000 mls @ 80 mls/hr IVC .[id number] [facility] Stop: 04/23/17 16:46 Last Admin: 10/24/16 06:26 Dose: 80 mls/hr Piperacillin Sod/Tazobactam (Sod 3.375 gm/ Dextrose) 100 mls @ 25 mls/hr IVPB Q12H LINDA PRN Reason: Protocol Stop: 04/23/17 17:01 Last Admin: 10/24/16 04:40 Dose: 25 mls/hr Heparin Sodium/Dextrose (Heparin 25,000 Unit/500 Ml D5w) 25,000 unit in 500 mls @ 19.488 mls/hr IVC .Q24H LINDA; 14 UNIT/KG/HR PRN Reason: Protocol Stop: 04/24/17 15:31 Last Titration: 10/24/16 09:43 Dose: 22.62 unit/kg/hr, 31.5 mls/hr Metoprolol Tartrate (Lopressor) 50 mg PO BID [facility] Stop: 04/24/17 21:01 Last Admin: 10/24/16 09:38 Dose: Not Given Morphine Sulfate (Morphine Sulfate) 4 mg IVP Q4HR PRN PRN Reason: PAIN >7 Stop: 04/23/17 16:41 Last Admin: 10/24/16 04:15 Dose: 4 mg Ondansetron HCl (Zofran) 4 mg IVP Q6HR PRN; Protocol PRN Reason: Nausea And Vomiting Stop: 04/24/17 09:42 Last Admin: 10/24/16 04:20 Dose: 4 mg Oxycodone/Acetaminophen (Percocet 5/325) 1 each PO Q6HR PRN PRN Reason: Pain<7 Stop: 04/24/17 09:42 Last Admin: 10/24/16 07:30 Dose: 1 each Prednisone (Prednisone) 40 mg PO DAILY [facility] Stop: 04/23/17 17:01 Last Admin: 10/24/16 09:38 Dose: 40 mg - Imaging and Cardiology Echo: report reviewed - EKG Interpretation EKG results cardiology: personally reviewed - VTE Documentation of Mechanical Device: Intermittent pneumatic compression device Consult Discharge Plan - Plan Referrals: Georgina Kennedy MD [Primary Care Provider] - 11/02/16 10:00 am
--- NOTE | 2016-10-24 13:06 | Internal Med Progress Note ---
Date of Encounter: 10/24/16 Time of Encounter: 10:00 - Assessment and plan (1) Community acquired pneumonia Current Visit: Yes Status: Acute Assessment and plan: Chest x-ray report right lower lobe infiltrates. Continue IV antibiotics-Zosyn due to multiple recent health care facility visits and underlying cancer. Blood culturesnegative. Continue supportive care and supplemental oxygen. Chest pain improved after treatment. (2) Bladder tumor Current Visit: No Status: Acute Assessment and plan: Urology consult is on case. Patient has currently some hematuria but need anticoagulation. Will consult hematology. (3) Atrial fibrillation and flutter Current Visit: Yes Status: Chronic Assessment and plan: Rate is well controlled now. On HEPARIN drip for DVT now (4) Chest pain Current Visit: Yes Status: Acute Assessment and plan: Patient noted to have severe right-sided pleuritic chest pain associated with nausea this morning. This could be secondary to right lower lobe pneumonia. We will increase IV morphine and give when necessary IV Zofran and for symptomatic relief. Pulmonary embolism has been suspected, however VQ scan shows low possibility. Qualifiers: Chest pain type: chest pain on breathing Qualified Code(s): R07.1 - Chest pain on breathing (5) DVT (deep venous thrombosis) Current Visit: Yes Status: Acute Assessment and plan: Preliminary DOPPLER SHOWS A LEFT-SIDED DVT. PATIENT IS ON HEPARIN DRIP NOW. Patient is at high risk because she is on heparin drip. Need close monitoring Qualifiers: DVT location: lower extremity Affected thrombotic vein of extremity: unspecified vein of extremity Laterality: left Chronicity: acute Qualified Code(s): I82.402 - Acute embolism and thrombosis of unspecified deep veins of left lower extremity - Subjective Interval history: Patient is a 66-year-old female admitted for right sided chest pain. Her past medical history is significant for bladder cancer, a flutter. Patient was found to DVT positive. Patient was seen and examined. She complains hematuria. Chest pain has improved. Her vitals are stable. H&H trended down. Urology is on case. Patient has bladder cancer with hematuria, she also has a DVT needed anticoagulation. Will consult hematology for further management. - Constitutional Vitals: Temp Pulse Resp BP Pulse Ox 97.6 F 80 16 105/64 97 10/24/16 11:38 10/24/16 12:36 10/24/16 11:38 10/24/16 11:38 10/24/16 11:38 General appearance: Present: mild distress, A&O X 3, answers questions appropriately - Head Head exam: Present: atraumatic, normocephalic - Eye Eye exam: Present: PERRL, conjuntiva pink, sclera anicteric Pupils: Present: PERRL - Neck Neck exam general surgery: Present: supple, trachea midline. Absent: lymphadenopathy - Respiratory Respiratory exam: Present: CTAB. Absent: accessory muscle use, rales, rhonchi, wheezes - Cardiovascular Cardiovascular exam: Present: RRR, +S1, +S2. Absent: diastolic murmur, gallop, rubs, systolic murmur - GI/Abdominal GI/Abdominal exam: Present: normal bowel sounds, soft, no peritoneal signs. Absent: distended, tenderness - Extremities Exam Extremities exam: Present: warm, radial pulses palpable and symetrical. Absent : calf tenderness, cyanotic, pedal edema - Neurological Exam Neurological exam: Present: CN II-XII intact, oriented X3, no focal deficits. Absent: pronater drift, facial droop, speech deficit - Skin Skin exam: Present: dry, intact Internal Medicine: Result - Labs CBC & Chem 7: 10/24/16 01:04 10/24/16 01:04 Labs: Short CBC 10/23/16 10/24/16 Range/Units 16:06 01:04 WBC 11.3 H 10.9 (4.3-11.1) K/mcL Hgb 9.2 L 8.5 L (11.5-15.4) g/dL Hct 29.7 L 28.0 L (35.3-44.9) % Plt Count 316 302 (140-400) K/mcL Neutrophils # 9.7 H (1.6-8.9) K/mcL BMP 10/24/16 01:04 Sodium 139 Potassium 4.9 H Chloride 109 Carbon Dioxide 22 BUN 26 H Creatinine 1.48 H Glucose 121 H Calcium 8.6 - ABG Interpretation ABG results: PT/INR, D-dimer PT 15.6 Seconds (9.4-12.1) H 10/23/16 16:06 D-Dimer 2187 ng/mLFEU (0-500) H 10/22/16 12:41 - VTE Documentation of Mechanical Device: Intermittent pneumatic compression device Consult Discharge Plan - Plan Referrals: Georgina Kennedy MD [Primary Care Provider] - 11/02/16 10:00 am
[2016-10-24 14:52] LABS: CK Total (Ck Isoenzymes) 16 U/L (20-180)
[2016-10-24 14:52] LABS: CK Total (Ck Isoenzymes) 15 U/L (20-180)
--- NOTE | 2016-10-24 16:39 | Venous Imaging Report ---
LE Venous Duplex Patient Name:Coni Felton Order Number:[id number] Procedure Date:10/23/2016 Date:1950ge:66 yrs Gender:Female Lt BP:110 / 75 mmHg Rt.BP:110 / 75 mmHgHeart Rate: Location:[facility] OP Room #: Water Mechanic:Hoa Reyez Referring MD:Esther Graham MD counter intelligence agent:None Reading MD:Konstantin Manuel MD Primary Indications:High D-dimer, chest pain, dyspnea Secondary Indications: Risk Factors Yes/No Hx of DVT Hx of Chemotherapy Impressions: Acute deep venous thrombosis is present in the right gastrocnemius vein. Normal right lower extremity superficial venous exam. Normal left lower extremity deep and superficial venous exam. Recommendations: Test completed on 10/23/2016 at 2:03:00 pm. Critical findings reported to EDITH Velazco by phone at 2:20:00 pm on 10/23/2016 by Hoa Reyez. Findings Venous Duplex Results: Right: There is an acute occlusive thrombus seen in the right gastrocnemius. Prior Study: No prior study available for comparison. Lower Extremity Venous Duplex Side Vein Compress Spontaneous Flow Augment Diameter (cm) Depth (cm) Right Distal Iliac Normal Yes Phasic Yes Right Common Femoral Normal Yes Phasic Yes Right Superficial Femoral Normal Yes Phasic Yes Right Popliteal Normal Yes Phasic Yes Right Posterior Tibial Normal Yes Phasic Yes Right Peroneal Normal Yes Phasic Yes Right Gastrocnemius None no Absent no Right Saphenofemoral Junction Normal Yes Phasic Yes Right Great Saphenous Normal Yes Phasic Yes Right Lesser Saphenous Normal Yes Phasic Yes Left Distal Iliac Normal Yes Phasic Yes Left Common Femoral Normal Yes Phasic Yes Left Superficial Femoral Normal Yes Phasic Yes Left Popliteal Normal Yes Phasic Yes Left Posterior Tibial Normal Yes Phasic Yes Left Peroneal Normal Yes Phasic Yes Left Gastrocnemius Normal Yes Phasic Yes Left Saphenofemoral Junction Normal Yes Phasic Yes Left Great Saphenous Normal Yes Phasic Yes Left Lesser Saphenous Normal Yes Phasic Yes Updated by Konstantin Manuel MD on 10/24/2016 4:33:41 PM electronically signed on 10/24/2016 4:34:01 PM with status of Final
--- NOTE | 2016-10-24 16:46 | Urology Progress Note ---
Date of Encounter: 10/24/16 Time of Encounter: 16:45 - Assessment and Plan (1) Bladder cancer Current Visit: Yes Status: Chronic Assessment and plan: Appreciate medical oncology input. I will defer to their opinion regarding neoadjuvant chemotherapy. I will closely monitor for any hematuria given that she is now on anticoagulants. Consideration for an IVC filter may need to be given if she persistently bleeds while on anticoagulants. Qualifiers: Bladder location: overlapping sites Qualified Code(s): C67.8 - Malignant neoplasm of overlapping sites of bladder Progress Note Narrative: Doing okay today. She was started on a heparin drip for DVT. Her nurse says that her urine has been clear. She says her pain is adequately controlled. A medical oncology consult was ordered today. Objective Initial Vital Signs Temp Pulse Resp BP Pulse Ox 98.8 F 128 24 106/80 89 10/22/16 12:18 10/22/16 12:18 10/22/16 12:18 10/22/16 12:18 10/22/16 12:18 - General physical appearance Present: well developed, well nourished, no distress - Respiratory Present: normal respiratory effort - Abdomen Present: soft - Labs 10/24/16 01:04 10/24/16 01:04 Diabetes panel 10/24/16 Range/Units 01:04 Sodium 139 (136-145) mEq/L Potassium 4.9 H (3.5-4.5) mEq/L Chloride 109 (98-109) mEq/L Carbon Dioxide 22 (19-29) mEq/L BUN 26 H (7-20) mg/dL Creatinine 1.48 H (0.57-1.11) mg/dL Glucose 121 H (70-99) mg/dL Calcium 8.6 (8.6-10.8) mg/dL Calcium panel 10/24/16 Range/Units 01:04 Calcium 8.6 (8.6-10.8) mg/dL Pituitary panel 10/24/16 Range/Units 01:04 Sodium 139 (136-145) mEq/L Potassium 4.9 H (3.5-4.5) mEq/L Chloride 109 (98-109) mEq/L Carbon Dioxide 22 (19-29) mEq/L BUN 26 H (7-20) mg/dL Creatinine 1.48 H (0.57-1.11) mg/dL Glucose 121 H (70-99) mg/dL Calcium 8.6 (8.6-10.8) mg/dL Adrenal panel 10/24/16 Range/Units 01:04 Sodium 139 (136-145) mEq/L Potassium 4.9 H (3.5-4.5) mEq/L Chloride 109 (98-109) mEq/L Carbon Dioxide 22 (19-29) mEq/L BUN 26 H (7-20) mg/dL Creatinine 1.48 H (0.57-1.11) mg/dL Glucose 121 H (70-99) mg/dL Calcium 8.6 (8.6-10.8) mg/dL - VTE Documentation of Mechanical Device: Intermittent pneumatic compression device Consult Discharge Plan - Plan Referrals: Georgina Kennedy MD [Primary Care Provider] - 11/02/16 10:00 am
--- NOTE | 2016-10-24 16:56 | Electrocardiograph Report ---
[address] [place] [address] Test Date: 2016-10-23 Pat Name: Coni Felton Department: 110 Room: 2N03 Gender: F Cushion Maker: MRJeimy : 1950 Requested By: Cori Almazan Order Number: [id number] Reading MD: Malik Silvestre Measurements Intervals [place] Rate: 84 P: ME: 0 QRS: -46 QRSD: 138 T: 41 QT: 410 QTc: 451 Interpretive Statements ATRIAL FLUTTER/TACHYCARDIA RIGHT BUNDLE BRANCH BLOCK LEFT ANTERIOR FASCICULAR BLOCK PROBABLE ANTEROSEPTAL MYOCARDIAL INFARCTION, OF INDETERMINATE AGE Electronically Signed On 10-24-2016 16:54:36 EDT by Malik Silvestre
[2016-10-24] MEDS ORDERED: D5% in 0.45% NACL 1,000 ML IVC ONE (17:07)
[2016-10-24] MEDS: D5% in 0.45% NACL 1,000 ML IVC SCH (17:12)
[2016-10-24] MEDS: Heparin 25,000 UNIT/500 ML D5W 25,000 UNIT/500 ML MLS IVC SCH ×2 (17:16→21:33)
--- NOTE | 2016-10-24 17:16 | Oncology Inp Consult Note ---
Date of Encounter: 10/24/16 Time of Encounter: 17:00 Assessment and Plan (1) DVT (deep venous thrombosis) Status: Acute Assessment and plan: Left ac gastronemius distal DVT, VQ low probability for PE, aureliano has bleeding from bladder tumor. Hr under control-hold anticoagulation, re-consider at later date. She is at risk for proximal extension of DVT and PE due to hospitalization, immobilization and irregular heart rhythm. Transfuse PRBC for symptomatic anemia as needed. Bladder cancer--cT4, muscle invasive-needs neoadjuvnat therapy-has renal insufficiency, needed to select out chemotherapy drugs based on her creatinine clearance, may not be a candidate for cisplatin based neoadjuvant therapy we will discuss this further with her surgeon at [facility] as patient prefers to get treatment locally at [facility]. We have discussed briefly the risks benefits of neoadjuvant therapy, due to her concurrent comorbidities, she needs to be in reasonable PS after chemotherapy to undergo radical cystectomy procedure. Schedule chemotherapy education and schedule as an outpatient. Ct abd with contrast not obtained, will arrange PET imaging as outpatient visit. Hx cervical ca s/p rn gyn and [facility] BSO in '80s Plan of care discussed with patient. Reviewed consultation report/records from [facility]. Qualifiers: DVT location: lower extremity Affected thrombotic vein of extremity: unspecified vein of extremity Laterality: left Chronicity: acute Qualified Code(s): I82.402 - Acute embolism and thrombosis of unspecified deep veins of left lower extremity - Data of Consult Requesting Physician: Cori Almazan MD Primary Care Provider: Georgina Kennedy MD - Consult Narrative Reason for consult: bladder cancer, hematuria History of present illness: Ms. Felton is a 66 year old female with history of atrial fibrillation requiring anticoagulation history of ablation in 2008 and cardioversion by records in 2014, hospitalized with significant respiratory distress and chest discomfort CT angiogram was not done but a VQ scan showed low probability for pulmonary embolism. lower extremity venous Dopplers showed ac gastronemius vein thrombosis, she was started on anticoag after the report-held due to hematuria from bladder tumor. Her bladder time she was diagnosed initially by Dr. Orozco and patient underwent transurethral resection of bladder tumor in August 2016 tumor extended around the bladder neck measuring 2.5 cm necrotic seems muscle invasive and adherent to the pubic bone on bimanual exam mass was palpable in the anterior aspect of the vagina and fixed. 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 A bone scan did not show any evidence of metastatic disease done in August [address] scan of the abdomen and pelvis in July 2016 wo contrast and inguinal lymph nodes. Patient was seen by urology at the [facility] October 17 2016, by DR Kelly. she also has a history of cervical cancer treated with chemotherapy radiation and a total abdominal hysterectomy bilateral stopping oophorectomy in the 's. She was recommended neoadjuvant chemotherapy and evaluate radiologically corresponds before determining the role of radical cystectomy due to cT4 disease. She also has history of COPD, right lower lobe infiltrates on antibiotics with Zosyn and discontinuing oxygen nasal cannula. Acute kidney injury is currently resolving. Reports hematuria since restarting anticoagulation for DVT. Denies chest discomfort Past Med Surg Social Fam HX - Past Medical History Medical history: cancer, COPD, DVT, GERD, hyperlipidemia, hypertension Psychiatric history: anxiety, depression - Past Surgical History Surgical History: other - Social History Smoking Status: Current every day smoker Packs per day: 1 Smokeless Tobacco Status: No Alcohol use: none Drug use: none - Family History Father Hx Family Genitourinary Disorders: Yes (BLADDER CANCER.) Medications and Allergies Amiodarone [Cordarone] 200 mg PO HS 08/21/16 [History] Atorvastatin [Lipitor] 40 mg PO HS 08/21/16 [History] Lactobacillus Combo No.10 [Probiotic] 1 cap PO HS 08/21/16 [History] Lisinopril [Zestril] 40 mg PO HS 08/21/16 [History] Metoprolol [Lopressor] 50 mg PO BID 08/21/16 [History] Multivitamin [Multi-Day Vitamins] 1 tab PO DAILY 08/21/16 [History] Docusate [Colace] 100 mg PO BID PRN #60 capsule 08/22/16 [Rx] OxyCODONE/APAP 5/325 [Percocet 5/325 MG] 1 tab PO Q4HR PRN 10/22/16 [History] Allergies No Known Allergies Allergy (Verified 08/21/16 09:40) Review of systems: as in hpi Oncology - Exam - Constitutional Vitals: Temp Pulse Resp BP Pulse Ox 97.7 F 51 14 108/57 94 10/24/16 15:32 10/24/16 15:32 04/25/17 15:32 10/24/16 15:32 10/24/16 15:32 General appearance: mild distress - Head Head exam: Present: atraumatic, normal inspection - Eye Eye exam: Present: sclera anicteric - ENT ENT exam: Present: mucous membranes moist Additional comments: O2 NC - Respiratory Respiratory exam: Present: CTAB - Cardiovascular Cardiovascular exam: Present: irregular rhythm, +S1, +S2 - GI/Abdominal GI/Abdominal exam: Present: normal bowel sounds, soft - Extremities Exam Extremities exam: Present: normal inspection Additional comments: DVT distal - Neurological Exam Neurological exam: Present: alert, CN II-XII intact, oriented X3, no focal deficits - Psychiatric Psychiatric exam: Present: normal affect Oncology - Results - Labs Labs: Short CBC 10/24/16 Range/Units 01:04 WBC 10.9 (4.3-11.1) K/mcL Hgb 8.5 L (11.5-15.4) g/dL Hct 28.0 L (35.3-44.9) % Plt Count 302 (140-400) K/mcL Neutrophils # 9.7 H (1.6-8.9) K/mcL BMP 10/24/16 01:04 Sodium 139 Potassium 4.9 H Chloride 109 Carbon Dioxide 22 BUN 26 H Creatinine 1.48 H Glucose 121 H Calcium 8.6 Cardiac Enzymes 10/22/16 10/23/16 Range/Units 20:53 00:18 CK-MB (CK-2) NOT APPLICABLE NOT APPLICABLE (0-4) % Consult Discharge Plan - Plan Referrals: Georgina Kennedy MD [Primary Care Provider] - 11/02/16 10:00 am
[2016-10-25 05:16] LABS: Basophils % 0.1 %; Hematocrit 27.9 % (35.3-44.9); Hemoglobin 8.4 g/dL (11.5-15.4); Immature Granulocytes % 0.6 % (0-4); Lymphocytes # 0.9 K/mcL (0.6-4.6); Lymphocytes % 7.8 %; Mean Corpuscular HGB Conc 30.1 g/dL (31.6-35.5); Mean Corpuscular Hemoglobin 26.1 pg (28.0-33.3); Mean Corpuscular Volume 86.6 fL (83.0-100.0); Mean Platelet Volume 10.5 fL (9.4-12.4); Monocytes # 0.4 K/mcL (0.0-1.3); Monocytes % 3.3 %; Platelet Count 316 K/mcL (140-400); Red Blood Count 3.22 M/mcL (3.82-4.97); Red Cell Distribution Width 14.9 % (11.5-14.5); Segmented Neutrophils % 88.2 %
[2016-10-25 05:34] LABS: Calcium 8.9 mg/dL (8.6-10.8); Potassium 4.8 mEq/L (3.5-4.5)
[2016-10-25] MEDS: Piperacillin/Tazobactam 3.375 GM in D5% in Water (Mini-Bag+) 100 ML IVPB SCH ×3 (05:49→19:57)
[2016-10-25] MEDS: predniSONE 20 MG TABLET PO SCH (09:04)
[2016-10-25] MEDS: Famotidine 20 MG/2 ML VIAL IVP SCH (09:04)
[2016-10-25] MEDS: D5% in 0.45% NACL 1,000 ML IVC SCH ×2 (09:04→17:42)
[2016-10-25] MEDS: *HR* Morphine 2 MG/ML SYRINGE IVP PRN ×2 (09:59→19:58)
[2016-10-25] MEDS: Heparin 25,000 UNIT/500 ML D5W 25,000 UNIT/500 ML MLS IVC SCH (12:29)
[2016-10-25] MEDS ORDERED: D5% in 0.45% NACL 1,000 ML IVC ONE (15:47)
--- NOTE | 2016-10-25 16:25 | Internal Med Progress Note ---
Date of Encounter: 10/25/16 Time of Encounter: 10:00 - Assessment and plan (1) Community acquired pneumonia Current Visit: Yes Status: Acute Assessment and plan: Chest x-ray report right lower lobe infiltrates. Continue IV antibiotics-Zosyn due to multiple recent health care facility visits and underlying cancer. Blood cultures negative. Continue supportive care and supplemental oxygen. Chest pain improved after treatment. (2) Bladder tumor Current Visit: No Status: Acute Assessment and plan: Urology consult and oncology consult on case. Plan to follow up with oncologist as outpatient. Hold anticoagulation b/o hematuria. (3) Atrial fibrillation and flutter Current Visit: Yes Status: Chronic Assessment and plan: Rate is well controlled now. Place ASA for CVA prophylaxis. No anticoagulation b/o hematuria. (4) Chest pain Current Visit: Yes Status: Acute Assessment and plan: Patient noted to have right-sided pleuritic chest pain. This could be secondary to right lower lobe pneumonia. We will increase IV morphine and give when necessary IV Zofran and for symptomatic relief. Pulmonary embolism has been suspected, however VQ scan shows low possibility. Chest pain improved on abx treatment. Qualifiers: Chest pain type: chest pain on breathing Qualified Code(s): R07.1 - Chest pain on breathing (5) DVT (deep venous thrombosis) Current Visit: Yes Status: Acute Assessment and plan: Pt was report Rt gastrocnemius vein DVT. However, pt has hematuria which is a contraindication for anticoagulation. IVC filter option discussed with pt but she refused. D/W hematology, will hold AC because it is distal DVT. Risk/ benefit discussed with pt, pt agrees with the treatment plan. Qualifiers: DVT location: lower extremity Affected thrombotic vein of extremity: unspecified vein of extremity Laterality: right Chronicity: acute Qualified Code(s): I82.401 - Acute embolism and thrombosis of unspecified deep veins of right lower extremity - Time Spent With Patient 25 - 35 minutes - Subjective Interval history: Patient is a 66-year-old female admitted for right sided chest pain. Her past medical history is significant for bladder cancer, a flutter. Patient was found to DVT positive. Patient was seen and examined. Her urine is clear today. Chest pain has improved but still pain on deep breath. Her vitals are stable. H&H stable. D/ W oncologist, since her DVT is distal and pt has hematuria, will d/c anticoagulation, place pt on ASA 81mg qd and SC heparin for DVT prophylaxis. Will continue abx for pneumonia. - Constitutional Vitals: Temp Pulse Resp BP Pulse Ox 97.9 F 65 16 131/92 90 10/25/16 15:37 10/25/16 15:37 10/25/16 15:37 10/25/16 15:37 10/25/16 15:37 General appearance: Present: mild distress, A&O X 3, answers questions appropriately - Head Head exam: Present: atraumatic, normocephalic - Eye Eye exam: Present: PERRL, conjuntiva pink, sclera anicteric Pupils: Present: PERRL - Neck Neck exam general surgery: Present: supple, trachea midline. Absent: lymphadenopathy - Respiratory Respiratory exam: Present: CTAB. Absent: accessory muscle use, rales, rhonchi, wheezes - Cardiovascular Cardiovascular exam: Present: RRR, +S1, +S2. Absent: diastolic murmur, gallop, rubs, systolic murmur - GI/Abdominal GI/Abdominal exam: Present: normal bowel sounds, soft, no peritoneal signs. Absent: distended, tenderness - Extremities Exam Extremities exam: Present: warm, radial pulses palpable and symetrical. Absent : calf tenderness, cyanotic, pedal edema - Neurological Exam Neurological exam: Present: CN II-XII intact, oriented X3, no focal deficits. Absent: pronater drift, facial droop, speech deficit - Skin Skin exam: Present: dry, intact Internal Medicine: Result - Labs CBC & Chem 7: 10/25/16 04:31 10/25/16 04:31 Labs: Short CBC 10/25/16 Range/Units 04:31 WBC 11.3 H (4.3-11.1) K/mcL Hgb 8.4 L (11.5-15.4) g/dL Hct 27.9 L (35.3-44.9) % Plt Count 316 (140-400) K/mcL Neutrophils # 10.0 H (1.6-8.9) K/mcL BMP 10/25/16 04:31 Sodium 140 Potassium 4.8 H Chloride 109 Carbon Dioxide 25 BUN 33 H Creatinine 1.55 H Glucose 136 H Calcium 8.9 - ABG Interpretation ABG results: PT/INR, D-dimer PT 15.6 Seconds (9.4-12.1) H 10/23/16 16:06 D-Dimer 2187 ng/mLFEU (0-500) H 10/22/16 12:41 - Impressions Impressions Retroperitoneum Ultrasound 10/24/16 18:30 IMPRESSION: Left hydronephrosis. D/ / 10/24/2016 22:53:52 Bryce Pizarro MD / earnold Interpreting Provider: Bryce Pizarro MD - VTE Documentation of Mechanical Device: Intermittent pneumatic compression device Consult Discharge Plan - Plan Referrals: Georgina Kennedy MD [Primary Care Provider] - 11/02/16 10:00 am
[2016-10-25] MEDS: *HR* Heparin 5,000 UNIT/ML VIAL SQ SCH (17:38)
--- NOTE | 2016-10-25 18:20 | Electrocardiograph Report ---
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
[2016-10-26] MEDS: Zinc Oxide 454 GM EACH TP PRN ×2 (03:58→09:45)
[2016-10-26 05:20] LABS: Basophils % 0.1 %; Hematocrit 29.4 % (35.3-44.9); Hemoglobin 8.8 g/dL (11.5-15.4); Immature Granulocytes % 0.7 % (0-4); Lymphocytes # 1.4 K/mcL (0.6-4.6); Mean Corpuscular HGB Conc 29.9 g/dL (31.6-35.5); Mean Corpuscular Hemoglobin 25.7 pg (28.0-33.3); Mean Platelet Volume 10.2 fL (9.4-12.4); Monocytes # 0.6 K/mcL (0.0-1.3); Monocytes % 4.1 %; Neutrophils # 11.6 K/mcL (1.6-8.9); Platelet Count 335 K/mcL (140-400); Red Blood Count 3.42 M/mcL (3.82-4.97); Segmented Neutrophils % 85.1 %
[2016-10-26 05:35] LABS: Calcium 8.8 mg/dL (8.6-10.8); Potassium 4.3 mEq/L (3.5-4.5)
[2016-10-26] MEDS: Piperacillin/Tazobactam 3.375 GM in D5% in Water (Mini-Bag+) 100 ML IVPB SCH ×3 (06:44→21:30)
[2016-10-26] MEDS: *HR* Heparin 5,000 UNIT/ML VIAL SQ SCH ×2 (06:44→18:14)
--- NOTE | 2016-10-26 07:41 | Event Note ---
Date of Encounter: 10/26/16 Time of Encounter: 07:40 Renal ultrasound reviewed. New onset left hydronephrosis. Creatinine has elevated. Will need to attempt placement of a left ureteral stent tomorrow. Will discuss with patient later today.
[2016-10-26] MEDS ORDERED: 0.9 % Sodium Chloride 1,000 ML IVC SCH (07:45)
[2016-10-26] MEDS: *HR* OxyCODONE/APAP 5/325 TABLET PO PRN ×2 (08:55→18:52)
[2016-10-26] MEDS: Famotidine 20 MG/2 ML VIAL IVP SCH (08:55)
[2016-10-26] MEDS: D5% in 0.45% NACL 1,000 ML IVC SCH ×2 (08:56→15:02)
[2016-10-26] MEDS: Aspirin Enteric Coated 81 MG Tablet PO SCH (09:05)
--- NOTE | 2016-10-26 12:52 | Urology Progress Note ---
Date of Encounter: 10/26/16 Time of Encounter: 12:50 - Assessment and Plan (1) Bladder cancer Current Visit: Yes Status: Chronic Assessment and plan: Plan for cystoscopy, left ureteral stent placement tomorow afternoon. All risks were informed. Clears past midnight. NPO past 11am tomorrow. OR will be after 5pm tomorrow. Qualifiers: Bladder location: overlapping sites Qualified Code(s): C67.8 - Malignant neoplasm of overlapping sites of bladder (2) Hydronephrosis Current Visit: Yes Status: Acute Qualifiers: Qualified Code(s): N13.39 - Other hydronephrosis Progress Note Narrative: 66 year old woman with bladder cancer and new left hydronephrosis. Objective Initial Vital Signs Temp Pulse Resp BP Pulse Ox 98.8 F 128 24 106/80 89 10/22/16 12:18 10/22/16 12:18 10/22/16 12:18 10/22/16 12:18 10/22/16 12:18 - General physical appearance Present: well developed, well nourished, no distress - Respiratory Present: normal respiratory effort - Abdomen Present: soft - Labs 10/26/16 04:06 10/26/16 04:06 Diabetes panel 10/26/16 Range/Units 04:06 Sodium 144 (136-145) mEq/L Potassium 4.3 (3.5-4.5) mEq/L Chloride 112 H (98-109) mEq/L Carbon Dioxide 24 (19-29) mEq/L BUN 33 H (7-20) mg/dL Creatinine 1.63 H (0.57-1.11) mg/dL Glucose 104 H (70-99) mg/dL Calcium 8.8 (8.6-10.8) mg/dL Calcium panel 10/26/16 Range/Units 04:06 Calcium 8.8 (8.6-10.8) mg/dL Pituitary panel 10/26/16 Range/Units 04:06 Sodium 144 (136-145) mEq/L Potassium 4.3 (3.5-4.5) mEq/L Chloride 112 H (98-109) mEq/L Carbon Dioxide 24 (19-29) mEq/L BUN 33 H (7-20) mg/dL Creatinine 1.63 H (0.57-1.11) mg/dL Glucose 104 H (70-99) mg/dL Calcium 8.8 (8.6-10.8) mg/dL Adrenal panel 10/26/16 Range/Units 04:06 Sodium 144 (136-145) mEq/L Potassium 4.3 (3.5-4.5) mEq/L Chloride 112 H (98-109) mEq/L Carbon Dioxide 24 (19-29) mEq/L BUN 33 H (7-20) mg/dL Creatinine 1.63 H (0.57-1.11) mg/dL Glucose 104 H (70-99) mg/dL Calcium 8.8 (8.6-10.8) mg/dL - VTE Documentation of Mechanical Device: Intermittent pneumatic compression device Consult Discharge Plan - Plan Referrals: Georgina Kennedy MD [Primary Care Provider] - (PATIENT DOESN'T WANT TO SEE THIS DOCTOR ANYMORE) Luis Soto MD [Partnered Physician] - 11/03/16 3:20 pm Arnold Calhoun DO [Resident] - 11/06/16 2:15 pm Richard Villalba MD [Partnered Physician] - 11/06/16 8:45 am
[2016-10-26] MEDS ORDERED: D5% in 0.45% NACL 1,000 ML IVC ONE (14:52)
--- NOTE | 2016-10-26 16:22 | Internal Med Progress Note ---
Date of Encounter: 10/26/16 Time of Encounter: 10:00 - Assessment and plan (1) Community acquired pneumonia Current Visit: Yes Status: Acute Assessment and plan: Chest x-ray report right lower lobe infiltrates. Continue IV antibiotics-Zosyn due to multiple recent health care facility visits and underlying cancer. Blood cultures negative. Continue supportive care and supplemental oxygen. Chest pain improved after treatment. (2) Bladder tumor Current Visit: No Status: Acute Assessment and plan: Urology consult and oncology consult on case. Plan to follow up with oncologist as outpatient. Hold anticoagulation b/o hematuria. US renal shows left hydronephrosis, plan for stent by urology tomorrow. (3) Atrial fibrillation and flutter Current Visit: Yes Status: Chronic Assessment and plan: Rate is well controlled now. Place ASA for CVA prophylaxis. No anticoagulation b/o hematuria. (4) Chest pain Current Visit: Yes Status: Acute Assessment and plan: Patient noted to have right-sided pleuritic chest pain. This could be secondary to right lower lobe pneumonia. Continue antibiotic treatment. Pain has improved after treatment. Pulmonary embolism has been suspected, however VQ scan shows low possibility. Chest pain improved on abx treatment. Qualifiers: Chest pain type: chest pain on breathing Qualified Code(s): R07.1 - Chest pain on breathing (5) DVT (deep venous thrombosis) Current Visit: Yes Status: Acute Assessment and plan: Pt was report Rt gastrocnemius vein DVT. However, pt has hematuria which is a contraindication for anticoagulation. IVC filter option discussed with pt but she refused. D/W hematology, will hold AC because it is distal DVT. Risk/ benefit discussed with pt, pt agrees with the treatment plan. Qualifiers: DVT location: lower extremity Affected thrombotic vein of extremity: unspecified vein of extremity Laterality: right Chronicity: acute Qualified Code(s): I82.401 - Acute embolism and thrombosis of unspecified deep veins of right lower extremity - Time Spent With Patient 25 - 35 minutes - Subjective Interval history: Patient is a 66-year-old female admitted for right sided chest pain. Her past medical history is significant for bladder cancer, a flutter. Patient was found DVT positive. Patient was seen and examined. Her urine is clear today. Chest pain has improved but still pain on deep breath. Her vitals are stable. Pt has elevated creatinine and hydronephrosis, Urology Will place stent for her tomorrow. Will continue abx for pneumonia. - Constitutional Vitals: Temp Pulse Resp BP Pulse Ox 98.1 F 68 14 116/80 92 10/26/16 15:31 10/26/16 15:31 10/26/16 15:31 10/26/16 15:31 10/26/16 15:31 General appearance: Present: mild distress, A&O X 3, answers questions appropriately - Head Head exam: Present: atraumatic, normocephalic - Eye Eye exam: Present: PERRL, conjuntiva pink, sclera anicteric Pupils: Present: PERRL - Neck Neck exam general surgery: Present: supple, trachea midline. Absent: lymphadenopathy - Respiratory Respiratory exam: Present: CTAB. Absent: accessory muscle use, rales, rhonchi, wheezes - Cardiovascular Cardiovascular exam: Present: RRR, +S1, +S2. Absent: diastolic murmur, gallop, rubs, systolic murmur - GI/Abdominal GI/Abdominal exam: Present: normal bowel sounds, soft, no peritoneal signs. Absent: distended, tenderness - Extremities Exam Extremities exam: Present: warm, radial pulses palpable and symetrical. Absent : calf tenderness, cyanotic, pedal edema - Neurological Exam Neurological exam: Present: CN II-XII intact, oriented X3, no focal deficits. Absent: pronater drift, facial droop, speech deficit - Skin Skin exam: Present: dry, intact Internal Medicine: Result - Labs CBC & Chem 7: 10/26/16 04:06 10/26/16 04:06 Labs: Short CBC 10/26/16 Range/Units 04:06 WBC 13.6 H (4.3-11.1) K/mcL Hgb 8.8 L (11.5-15.4) g/dL Hct 29.4 L (35.3-44.9) % Plt Count 335 (140-400) K/mcL Neutrophils # 11.6 H (1.6-8.9) K/mcL BMP 10/26/16 04:06 Sodium 144 Potassium 4.3 Chloride 112 H Carbon Dioxide 24 BUN 33 H Creatinine 1.63 H Glucose 104 H Calcium 8.8 - ABG Interpretation ABG results: PT/INR, D-dimer PT 15.6 Seconds (9.4-12.1) H 10/23/16 16:06 D-Dimer 2187 ng/mLFEU (0-500) H 10/22/16 12:41 - VTE Documentation of Mechanical Device: Intermittent pneumatic compression device Consult Discharge Plan - Plan Referrals: Georgina Kennedy MD [Primary Care Provider] - (PATIENT DOESN'T WANT TO SEE THIS DOCTOR ANYMORE) Luis Soto MD [Partnered Physician] - 11/03/16 3:20 pm Arnold Calhoun DO [Resident] - 11/06/16 2:15 pm Richard Villalba MD [Partnered Physician] - 11/06/16 8:45 am
[2016-10-26] MEDS: *HR* Morphine 2 MG/ML SYRINGE IVP PRN (21:39)
[2016-10-26 23:31] LABS: Bilirubin,Urine Negative (Negative); Blood,Urine Moderate (Negative); Color,Urine Yellow (Yellow); Glucose,Urine (UA) Normal (Normal); Ketones,Urine Negative (Negative); Leukocyte Esterase,Urine Small (Negative); Nitrite,Urine Negative (Negative); PH,Urine 6.5 pH Units (5.0-8.0); Protein,Urine 100 mg/dL (Neg-Trace); Specific Gravity,Urine 1.016 (1.010-1.025); Urobilinogen,Urine Normal (Normal)
[2016-10-26 23:32] LABS: Bacteria,Urine None Seen per hpf (None-Few); Hyaline Casts,Urine None Seen per lpf (None-Few); RBC,Urine 0-3 per hpf (0-3); Squamous Epithelial Cell,Urine Many per lpf (None-Few); WBC,Urine 0-3 per hpf (0-3)
[2016-10-26 23:35] LABS: Clarity,Urine Hazy (Clear)
[2016-10-27] MEDS: *HR* OxyCODONE/APAP 5/325 TABLET PO PRN ×2 (01:25→09:22)
[2016-10-27 04:48] LABS: Basophils % 0.1 %; Eosinophils # 0.1 K/mcL (0.0-0.6); Eosinophils % 0.9 %; Hematocrit 28.7 % (35.3-44.9); Hemoglobin 8.8 g/dL (11.5-15.4); Immature Granulocytes % 0.9 % (0-4); Lymphocytes # 1.9 K/mcL (0.6-4.6); Lymphocytes % 18.5 %; Mean Corpuscular HGB Conc 30.7 g/dL (31.6-35.5); Mean Corpuscular Hemoglobin 26.7 pg (28.0-33.3); Mean Platelet Volume 10.3 fL (9.4-12.4); Monocytes # 0.6 K/mcL (0.0-1.3); Neutrophils # 7.5 K/mcL (1.6-8.9); Platelet Count 299 K/mcL (140-400); Segmented Neutrophils % 73.6 %
[2016-10-27 05:01] LABS: Calcium 8.4 mg/dL (8.6-10.8); Potassium 4.1 mEq/L (3.5-4.5)
[2016-10-27] MEDS: Piperacillin/Tazobactam 3.375 GM in D5% in Water (Mini-Bag+) 100 ML IVPB SCH ×3 (06:48→22:27)
[2016-10-27] MEDS: *HR* Heparin 5,000 UNIT/ML VIAL SQ SCH ×2 (06:48→17:42)
[2016-10-27] MEDS: Famotidine 20 MG TABLET PO SCH (06:49)
--- NOTE | 2016-10-27 07:35 | Urology Progress Note ---
Date of Encounter: 10/27/16 Time of Encounter: 07:34 - Assessment and Plan (1) Bladder cancer Current Visit: Yes Status: Chronic Assessment and plan: Plan per medical oncology. Qualifiers: Bladder location: overlapping sites Qualified Code(s): C67.8 - Malignant neoplasm of overlapping sites of bladder (2) Hydronephrosis Current Visit: Yes Status: Acute Assessment and plan: Creatinine to 1.82 today. Plan for cystoscopy and left ureteral stent placement given left hydronephrosis. All risks informed. She is willing to proceed. She understands of the possible risk of failure to place stent and need for nephrostomy tube. Qualifiers: Qualified Code(s): N13.39 - Other hydronephrosis Progress Note Narrative: Doing well. Objective Initial Vital Signs Temp Pulse Resp BP Pulse Ox 98.8 F 128 24 106/80 89 10/22/16 12:18 10/22/16 12:18 10/22/16 12:18 10/22/16 12:18 10/22/16 12:18 - General physical appearance Present: well developed, well nourished, no distress - Respiratory Present: normal respiratory effort - Abdomen Present: soft - Labs 10/27/16 04:28 10/27/16 04:28 Diabetes panel 10/27/16 Range/Units 04:28 Sodium 142 (136-145) mEq/L Potassium 4.1 (3.5-4.5) mEq/L Chloride 109 (98-109) mEq/L Carbon Dioxide 26 (19-29) mEq/L BUN 31 H (7-20) mg/dL Creatinine 1.82 H (0.57-1.11) mg/dL Glucose 72 (70-99) mg/dL Calcium 8.4 L (8.6-10.8) mg/dL Calcium panel 10/27/16 Range/Units 04:28 Calcium 8.4 L (8.6-10.8) mg/dL Pituitary panel 10/27/16 Range/Units 04:28 Sodium 142 (136-145) mEq/L Potassium 4.1 (3.5-4.5) mEq/L Chloride 109 (98-109) mEq/L Carbon Dioxide 26 (19-29) mEq/L BUN 31 H (7-20) mg/dL Creatinine 1.82 H (0.57-1.11) mg/dL Glucose 72 (70-99) mg/dL Calcium 8.4 L (8.6-10.8) mg/dL Adrenal panel 10/27/16 Range/Units 04:28 Sodium 142 (136-145) mEq/L Potassium 4.1 (3.5-4.5) mEq/L Chloride 109 (98-109) mEq/L Carbon Dioxide 26 (19-29) mEq/L BUN 31 H (7-20) mg/dL Creatinine 1.82 H (0.57-1.11) mg/dL Glucose 72 (70-99) mg/dL Calcium 8.4 L (8.6-10.8) mg/dL - VTE Documentation of Mechanical Device: Intermittent pneumatic compression device Consult Discharge Plan - Plan Referrals: Georgina Kennedy MD [Primary Care Provider] - (PATIENT DOESN'T WANT TO SEE THIS DOCTOR ANYMORE) Luis Soto MD [Partnered Physician] - 11/03/16 3:20 pm Arnold Calhoun DO [Resident] - 11/06/16 2:15 pm Richard Villalba MD [Partnered Physician] - 11/06/16 8:45 am
[2016-10-27] MEDS: Aspirin Enteric Coated 81 MG Tablet PO SCH (07:57)
[2016-10-27] MEDS: D5% in 0.45% NACL 1,000 ML IVC SCH (08:03)
[2016-10-27] MEDS ORDERED: D5% in 0.45% NACL 1,000 ML IVC ONE (08:03)
--- NOTE | 2016-10-27 16:20 | Internal Med Progress Note ---
Date of Encounter: 10/27/16 Time of Encounter: 09:00 - Assessment and plan (1) Community acquired pneumonia Current Visit: Yes Status: Acute Assessment and plan: Chest x-ray report right lower lobe infiltrates. Continue IV antibiotics-Zosyn due to multiple recent health care facility visits and underlying cancer. Blood cultures negative. Continue supportive care and supplemental oxygen. Chest pain improved after treatment. To finish 7 day course. (2) Bladder tumor Current Visit: No Status: Acute Assessment and plan: Urology consult and oncology consult on case. Plan to follow up with oncologist as outpatient. Hold anticoagulation b/o hematuria. US renal shows left hydronephrosis, plan for stent by urology today. (3) Atrial fibrillation and flutter Current Visit: Yes Status: Chronic Assessment and plan: Rate is well controlled now. Place ASA for CVA prophylaxis. No anticoagulation b/o hematuria. (4) Chest pain Current Visit: Yes Status: Acute Assessment and plan: Patient noted to have right-sided pleuritic chest pain. This could be secondary to right lower lobe pneumonia. Continue antibiotic treatment. Pain has improved after treatment. Pulmonary embolism has been suspected, however VQ scan shows low possibility. Chest pain improved on abx treatment. Qualifiers: Chest pain type: chest pain on breathing Qualified Code(s): R07.1 - Chest pain on breathing (5) DVT (deep venous thrombosis) Current Visit: Yes Status: Acute Assessment and plan: Pt was report Rt gastrocnemius vein DVT. However, pt has hematuria which is a contraindication for anticoagulation. IVC filter option discussed with pt but she refused. D/W hematology, will hold AC because it is distal DVT. Risk/ benefit discussed with pt, pt agrees with the treatment plan. Qualifiers: DVT location: lower extremity Affected thrombotic vein of extremity: unspecified vein of extremity Laterality: right Chronicity: acute Qualified Code(s): I82.401 - Acute embolism and thrombosis of unspecified deep veins of right lower extremity - Time Spent With Patient 25 - 35 minutes - Subjective Interval history: Patient is a 66-year-old female admitted for right sided chest pain. Her past medical history is significant for bladder cancer, a flutter. Patient was found DVT positive. Patient was seen and examined. Her urine is clear today. Chest pain has improved but still mild pain on deep breath. Her vitals are stable. Pt has elevated creatinine and hydronephrosis, Urology Will place stent for her today. Will continue abx for pneumonia to finish 7 days course. - Constitutional Vitals: Temp Pulse Resp BP Pulse Ox 97.8 F 68 18 136/77 92 10/27/16 15:28 10/27/16 15:28 10/27/16 15:28 10/27/16 15:28 10/27/16 15:28 General appearance: Present: mild distress, A&O X 3, answers questions appropriately - Head Head exam: Present: atraumatic, normocephalic - Eye Eye exam: Present: PERRL, conjuntiva pink, sclera anicteric Pupils: Present: PERRL - Neck Neck exam general surgery: Present: supple, trachea midline. Absent: lymphadenopathy - Respiratory Respiratory exam: Present: CTAB. Absent: accessory muscle use, rales, rhonchi, wheezes - Cardiovascular Cardiovascular exam: Present: RRR, +S1, +S2. Absent: diastolic murmur, gallop, rubs, systolic murmur - GI/Abdominal GI/Abdominal exam: Present: normal bowel sounds, soft, no peritoneal signs. Absent: distended, tenderness - Extremities Exam Extremities exam: Present: warm, radial pulses palpable and symetrical. Absent : calf tenderness, cyanotic, pedal edema - Neurological Exam Neurological exam: Present: CN II-XII intact, oriented X3, no focal deficits. Absent: pronater drift, facial droop, speech deficit - Skin Skin exam: Present: dry, intact Internal Medicine: Result - Labs CBC & Chem 7: 10/27/16 04:28 10/27/16 04:28 Labs: Short CBC 10/27/16 Range/Units 04:28 WBC 10.2 (4.3-11.1) K/mcL Hgb 8.8 L (11.5-15.4) g/dL Hct 28.7 L (35.3-44.9) % Plt Count 299 (140-400) K/mcL Neutrophils # 7.5 (1.6-8.9) K/mcL BMP 10/27/16 04:28 Sodium 142 Potassium 4.1 Chloride 109 Carbon Dioxide 26 BUN 31 H Creatinine 1.82 H Glucose 72 Calcium 8.4 L Urine 10/26/16 Range/Units 20:00 Urine Color Yellow (Yellow) Urine Clarity Hazy A (Clear) Urine pH 6.5 (5.0-8.0) pH Units Ur Specific [place] 1.016 (1.010-1.025) Urine Protein 100 H (Neg-Trace) mg/dL Urine Glucose (UA) Normal (Normal) mg/dL - ABG Interpretation ABG results: PT/INR, D-dimer PT 15.6 Seconds (9.4-12.1) H 10/23/16 16:06 D-Dimer 2187 ng/mLFEU (0-500) H 10/22/16 12:41 - VTE Documentation of Mechanical Device: Intermittent pneumatic compression device Consult Discharge Plan - Plan Referrals: Gerogina Kennedy MD [Primary Care Provider] - (PATIENT DOESN'T WANT TO SEE THIS DOCTOR ANYMORE) Luis Soto MD [Partnered Physician] - 11/03/16 3:20 pm Arnold Calhoun DO [Resident] - 11/06/16 2:15 pm Richard Villalba MD [Partnered Physician] - 11/06/16 8:45 am
[2016-10-27] MEDS ORDERED: Dexamethasone 4 MG/ML VIAL ONE (17:55)
[2016-10-27] MEDS ORDERED: Ondansetron 4 MG/2 ML VIAL ONE (17:55)
[2016-10-27] MEDS ORDERED: Lidocaine -MPF 2% 2 ML VIAL ONE (17:55)
[2016-10-27] MEDS ORDERED: *HR* FentaNYL (PF) 100 MCG/2 ML VIAL ONE (17:55)
[2016-10-27] MEDS ORDERED: *HR* Midazolam HCl 2 MG/2 ML VIAL ONE (17:56)
[2016-10-27] MEDS ORDERED: *HR* Propofol 200 MG/20 ML VIAL IVP ONE (17:57)
--- NOTE | 2016-10-27 18:14 | Anesthesia Evaluation PreOp ---
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: Denies Any Significant HX Other Medical History: Renal (Acute Kindey Injury), GERD, Other (Bladder Tumor) Anesthesia History: No Prior Anesthetic Complications, Past Anesthesia (JAHAIRA, T&A ) : No Alcohol Use: none Drug use: none Medications and Allergies Amiodarone [Cordarone] 200 mg PO HS 08/21/16 [History] Atorvastatin [Lipitor] 40 mg PO HS 08/21/16 [History] Lactobacillus Combo No.10 [Probiotic] 1 cap PO HS 08/21/16 [History] Lisinopril [Zestril] 40 mg PO HS 08/21/16 [History] Metoprolol [Lopressor] 50 mg PO BID 08/21/16 [History] Multivitamin [Multi-Day Vitamins] 1 tab PO DAILY 08/21/16 [History] Docusate [Colace] 100 mg PO BID PRN #60 capsule 08/22/16 [Rx] OxyCODONE/APAP 5/325 [Percocet 5/325 MG] 1 tab PO Q4HR PRN 10/22/16 [History] Allergies No Known Allergies Allergy (Verified 08/21/16 09:40) - Meds/Allergy Pre-op Review Medications Reviewed: Yes Allergies Reviewed: Yes Beta Blockers on Current Med List: Yes If Beta Blockers taken, Date/Time (Last Dose taken): 10/27/16 07:57 Anesthesia Results - Labs 10/27/16 04:28 10/27/16 04:28 Echo 10/23/2016 EF-60% Mild MR,TR, No AR No MS, - Imaging EKG: image reviewed (AFlutter with slow response, IRBBB) Anesthesia Exam O2 Sat Weight 72.8 kg O2 Sat by Pulse Oximetry 92 O2 Sat by Pulse Oximetry 93 O2 Sat by Pulse Oximetry 94 O2 Sat by Pulse Oximetry 94 O2 Sat by Pulse Oximetry 96 O2 Sat by Pulse Oximetry 93 O2 Sat by Pulse Oximetry 96 Vital Signs Temp Pulse Resp BP Pulse Ox 98.8 F 128 24 106/80 89 04/23/17 12:18 10/22/16 12:18 10/22/16 12:18 10/22/16 12:18 10/22/16 12:18 Vital Signs/O2 Sat, Most Current Temp Pulse Resp BP Pulse Ox 97.8 F 68 18 136/77 92 10/27/16 15:28 10/27/16 15:28 10/27/16 15:28 10/27/16 15:28 10/27/16 15:28 Height: 5'5'' Weight: 160# NPO (# of Hours): > 8 hrs Pain Scale: 0 Pain Scale Used: Numeric (1 - 10) - HEENT Pupil (Motor): Pupils equal, EOMI Mallampati: III Teeth: Normal Oral Opening: Greater than 3 - REGISTERED PRIVATE DUTY NURSE LOC: Oriented REGISTERED PRIVATE DUTY NURSE Motor: Normal RUE, Normal LUE, Normal RLE, Normal LLE, Normal Face REGISTERED PRIVATE DUTY NURSE Sensory: Normal: RUE, LUE, RLE, LLE, Face - Cardiac Rhythm: Regular Murmur: None JVD: No Carotid Bruit: No - Pulmonary Breath Sounds: bilateral Clear Respiratory Effort: Symmetrical Anesthesia Assess/Plan ASA Score: 3 Modified Wayne Scale for Level of Consciousness: Cooperative, oriented, and tranquil Anesthetic Plan: General Autologous Blood: Yes Monitoring Plan: Standard Monitors Recovery Plan: PACU
[2016-10-27] MEDS ORDERED: *HR* Promethazine 25 MG/ML VIAL IVP PRN (19:15)
[2016-10-27] MEDS ORDERED: *HR* HYDROmorphone (PF) 1 MG/ML SYRINGE IVP PRN (19:15)
[2016-10-27] MEDS ORDERED: *HR* Labetalol 100 MG/20 ML MDV IVP PRN (19:15)
--- NOTE | 2016-10-27 19:39 | Operative Note ---
Date of procedure: 10/27/16 Pre-op diagnosis: Bladder cancer, left hydronephrosis Post-op diagnosis: same Procedure: Cystoscopy, attempted stent placement. Implants: none Complications: none Anesthesia: MURPHY Surgeon: Richard Villalba Estimated blood loss (cc): 1 Specimen: none Condition: stable Disposition: PACU Procedure in Detail: Indications: Coni is a 66-year-old woman with a history of muscle invasive bladder cancer. She was recently admitted and has a DVT. A renal ultrasound was obtained as she has some renal insufficiency, and it showed left hydronephrosis. She elected to undergo cystoscopy and left ureteral stent placement. She was informed of the risks of the surgery including but not limited to bleeding, infection, injury or structures, need for further procedures, and the risk of anesthesia. She is willing to proceed. Procedure: After informed consent was obtained Coni was brought back to the operating room and placed in the supine position. A timeout was performed. Gen. anesthesia was administered and a laryngeal mask airway was placed. She was placed in the lithotomy position. She was prepped and draped in usual sterile fashion. Cystoscopy was then performed. There was a lot of necrotic material within the bladder. I did not best irrigate this out. I carefully surveyed the bladder and probed the expected location of the left ureteral orifice with both a zip wire and and angle tipped zip wire. Unfortunately, I could not find the lef ureteral orifice. In addition I did not visualize the right ureteral orifice. Bladder cancer was noted in a circumferential region around the bladder neck and to the trigone extending all the way anteriorly. I tried to irrigate out some of the necrotic material using the resector sheath but it was very adherent to the bladder wall. As it was difficult to find the ureteral orifices and even identify where it may be located, I elected to end the procedure. We will consider placement of a nephrostomy tube at a later date. Her bladder was then drained. She was then awakened from general anesthesia and brought to room in good condition. All sponge, needle, and his reticulocyte counts were correct.
--- NOTE | 2016-10-27 20:06 | Anesthesia Evaluation Post Op ---
Date of Encounter: 10/27/16 Time of Encounter: 20:06 - Vital Signs Vital Signs: Last Vital Signs Temp 97.3 F L 10/27/16 19:44 Pulse 74 10/27/16 19:54 Resp 16 10/27/16 19:54 BP 131/87 10/27/16 19:54 Pulse Ox 93 10/27/16 19:54 - Lungs Lungs: Clear Ascult./Percussion - Airway Airway: Non-obstructed - Cardiovascular Regular Rate - Mental Status Mental Status: Alert & Oriented, Answers Appropriately - Pain Pain Scale: 2 - Nausea Vomiting Nausea Vomiting: Not Present - Hydration Hydration: NPO - Discharge PostOp Status: Transfer Patient to floor
[2016-10-28] MEDS: Ringers Solution, Lactated 1,000 ML IVC SCH (04:13)
[2016-10-28 05:28] LABS: Basophils % 0.1 %; Eosinophils % 0.1 %; Hematocrit 31.1 % (35.3-44.9); Hemoglobin 9.5 g/dL (11.5-15.4); Lymphocytes # 0.9 K/mcL (0.6-4.6); Lymphocytes % 8.5 %; Mean Corpuscular HGB Conc 30.5 g/dL (31.6-35.5); Mean Corpuscular Hemoglobin 25.9 pg (28.0-33.3); Mean Corpuscular Volume 84.7 fL (83.0-100.0); Mean Platelet Volume 10.4 fL (9.4-12.4); Monocytes # 0.2 K/mcL (0.0-1.3); Monocytes % 1.6 %; Neutrophils # 9.8 K/mcL (1.6-8.9); Platelet Count 333 K/mcL (140-400); Red Blood Count 3.67 M/mcL (3.82-4.97); Red Cell Distribution Width 14.9 % (11.5-14.5); Segmented Neutrophils % 88.7 %
[2016-10-28 05:50] LABS: Calcium 8.5 mg/dL (8.6-10.8); Potassium 4.5 mEq/L (3.5-4.5)
[2016-10-28] MEDS: Piperacillin/Tazobactam 3.375 GM in D5% in Water (Mini-Bag+) 100 ML IVPB SCH ×3 (05:54→20:03)
[2016-10-28] MEDS: *HR* Heparin 5,000 UNIT/ML VIAL SQ SCH (05:55)
--- NOTE | 2016-10-28 07:45 | Urology Progress Note ---
Date of Encounter: 10/28/16 Time of Encounter: 07:44 - Assessment and Plan (1) Bladder cancer Current Visit: Yes Status: Chronic Assessment and plan: Plan per oncology. Qualifiers: Bladder location: overlapping sites Qualified Code(s): C67.8 - Malignant neoplasm of overlapping sites of bladder (2) Hydronephrosis Current Visit: Yes Status: Acute Assessment and plan: Recommend IR to place left nephrostomy tube on Sunday. Will place consult. Qualifiers: Qualified Code(s): N13.39 - Other hydronephrosis Progress Note Narrative: s/p attempted stent placement on the left side, but unable to do so secondary to local bladder cancer. She is doing well today. Objective Initial Vital Signs Temp Pulse Resp BP Pulse Ox 98.8 F 128 24 106/80 89 10/22/16 12:18 10/22/16 12:18 10/22/16 12:18 10/22/16 12:18 10/22/16 12:18 - General physical appearance Present: well developed, well nourished, no distress - Respiratory Present: normal respiratory effort - Abdomen Present: soft - Labs 10/28/16 04:43 10/28/16 04:43 Diabetes panel 10/28/16 Range/Units 04:43 Sodium 142 (136-145) mEq/L Potassium 4.5 (3.5-4.5) mEq/L Chloride 109 (98-109) mEq/L Carbon Dioxide 24 (19-29) mEq/L BUN 29 H (7-20) mg/dL Creatinine 1.76 H (0.57-1.11) mg/dL Glucose 131 H (70-99) mg/dL Calcium 8.5 L (8.6-10.8) mg/dL Calcium panel 10/28/16 Range/Units 04:43 Calcium 8.5 L (8.6-10.8) mg/dL Pituitary panel 10/28/16 Range/Units 04:43 Sodium 142 (136-145) mEq/L Potassium 4.5 (3.5-4.5) mEq/L Chloride 109 (98-109) mEq/L Carbon Dioxide 24 (19-29) mEq/L BUN 29 H (7-20) mg/dL Creatinine 1.76 H (0.57-1.11) mg/dL Glucose 131 H (70-99) mg/dL Calcium 8.5 L (8.6-10.8) mg/dL Adrenal panel 10/28/16 Range/Units 04:43 Sodium 142 (136-145) mEq/L Potassium 4.5 (3.5-4.5) mEq/L Chloride 109 (98-109) mEq/L Carbon Dioxide 24 (19-29) mEq/L BUN 29 H (7-20) mg/dL Creatinine 1.76 H (0.57-1.11) mg/dL Glucose 131 H (70-99) mg/dL Calcium 8.5 L (8.6-10.8) mg/dL - VTE Documentation of Mechanical Device: Intermittent pneumatic compression device Consult Discharge Plan - Plan Referrals: Georgina Kennedy MD [Primary Care Provider] - (PATIENT DOESN'T WANT TO SEE THIS DOCTOR ANYMORE) Luis Soto MD [Partnered Physician] - 11/03/16 3:20 pm Arnold Calhoun DO [Resident] - 11/06/16 2:15 pm Richard Villalba MD [Partnered Physician] - 11/06/16 8:45 am
[2016-10-28] MEDS: Famotidine 20 MG TABLET PO SCH (08:22)
[2016-10-28] MEDS: Aspirin Enteric Coated 81 MG Tablet PO SCH (08:22)
--- NOTE | 2016-10-28 09:30 | Internal Med Progress Note ---
Date of Encounter: 10/28/16 Time of Encounter: 09:27 - Assessment and plan (1) Bladder cancer Current Visit: Yes Status: Chronic Assessment and plan: Reported history of advanced bladder cancer Urology and oncology input appreciated Status post cystoscopy done by urology yesterday (10/27/2016), unable to place stent, IR consulted for placement of left nephrostomy tube given left hydronephrosis Hematuria persists H&H low but acceptable Will use IPCD for DVT ppx Qualifiers: Bladder location: overlapping sites Qualified Code(s): C67.8 - Malignant neoplasm of overlapping sites of bladder (2) Community acquired pneumonia Current Visit: Yes Status: Acute Assessment and plan: Chest x-ray report right lower lobe infiltrates. Continue IV antibiotics-Zosyn due to multiple recent health care facility visits and underlying cancer. Blood cultures negative. Continue supportive care and supplemental oxygen. Chest pain improved after treatment. To finish 7 day course today (Day 77) 10/28/16 (3) Anemia Current Visit: Yes Status: Acute Assessment and plan: H&H low but acceptable given persistent hematuria, will closely monitor H&H Transfuse as needed Qualifiers: Anemia type: unspecified type Qualified Code(s): D64.9 - Anemia, unspecified (4) CONNOR (acute kidney injury) Current Visit: Yes Status: Acute Assessment and plan: Renal function improving Hydronephrosis secondary to tumor burden Interventional radiology consultation requested for Nephrostomy tube placement will continue to avoid nephrotoxic agents monitor renal function closely (5) Hydronephrosis Current Visit: Yes Status: Acute Assessment and plan: plan as listed above Qualifiers: Hydronephrosis type: unspecified Qualified Code(s): N13.30 - Unspecified hydronephrosis (6) COPD (chronic obstructive pulmonary disease) Current Visit: Yes Status: Chronic Assessment and plan: Not noted to be in acute exacerbation. Continue when necessary bronchodilators and supplemental oxygen. Qualifiers: COPD type: unspecified COPD Qualified Code(s): J44.9 - Chronic obstructive pulmonary disease, unspecified (7) Atrial fibrillation and flutter Current Visit: Yes Status: Chronic Assessment and plan: Rate controlled with BB ASA for CVA prophylaxis No anticoagulation b/o hematuria (8) DVT (deep venous thrombosis) Current Visit: Yes Status: Acute Assessment and plan: Pt was reported to have Rt gastrocnemius vein DVT. Given patient's hematuria, no anticoagulation was recommended IVC filter option discussed with pt but she refused. D/W hematology, will hold AC because it is distal DVT. Risk/benefit discussed with pt, pt agrees with the treatment plan. Qualifiers: DVT location: lower extremity Affected thrombotic vein of extremity: unspecified vein of extremity Laterality: right Chronicity: acute Qualified Code(s): I82.401 - Acute embolism and thrombosis of unspecified deep veins of right lower extremity (9) Chest pain Current Visit: Yes Status: Resolved Qualifiers: Chest pain type: chest pain on breathing Qualified Code(s): R07.1 - Chest pain on breathing - Subjective Interval history: Patient seen and examined at bedside. Resting in bed and reports of feeling better compared to previous day. Reported to have hematuria this morning with H& H within acceptable range. Patient is s/p cystoscopy (10/27/16) At baseline patient reports of being able to ambulate well however since hospitalization, reports of being bed bound. Pt encouraged to get out of bed to chair and will obtain PT eval - Constitutional Vitals: Temp Pulse Resp BP Pulse Ox 97.3 F L 67 14 127/72 97 10/28/16 08:12 10/28/16 08:12 10/28/16 08:12 10/28/16 08:12 10/28/16 08:25 General appearance: Present: A&O X 3, no acute distress, answers questions appropriately - Head Head exam: Present: atraumatic, normocephalic - Eye Eye exam: Present: normal appearance, conjuntiva pink, sclera anicteric - Respiratory Respiratory exam: Present: CTAB. Absent: respiratory distress, wheezes - Cardiovascular Cardiovascular exam: Present: RRR, +S1, +S2. Absent: diastolic murmur, gallop, rubs, systolic murmur - GI/Abdominal GI/Abdominal exam: Present: normal bowel sounds, soft. Absent: distended, tenderness - Extremities Exam Extremities exam: Present: warm, radial pulses palpable and symetrical. Absent : calf tenderness, pedal edema - Neurological Exam Neurological exam: Present: alert, oriented X3 - Psychiatric Psychiatric exam: Present: normal affect, normal mood Internal Medicine: Result - Labs CBC & Chem 7: 10/28/16 04:43 10/28/16 04:43 Labs: Short CBC 10/28/16 Range/Units 04:43 WBC 11.1 (4.3-11.1) K/mcL Hgb 9.5 L (11.5-15.4) g/dL Hct 31.1 L (35.3-44.9) % Plt Count 333 (140-400) K/mcL Neutrophils # 9.8 H (1.6-8.9) K/mcL BMP 10/28/16 04:43 Sodium 142 Potassium 4.5 Chloride 109 Carbon Dioxide 24 BUN 29 H Creatinine 1.76 H Glucose 131 H Calcium 8.5 L - ABG Interpretation ABG results: PT/INR, D-dimer PT 15.6 Seconds (9.4-12.1) H 10/23/16 16:06 D-Dimer 2187 ng/mLFEU (0-500) H 10/22/16 12:41 - VTE Documentation of Mechanical Device: Intermittent pneumatic compression device Consult Discharge Plan - Plan Referrals: Georgina Kennedy MD [Primary Care Provider] - (PATIENT DOESN'T WANT TO SEE THIS DOCTOR ANYMORE) Luis Soto MD [Partnered Physician] - 11/03/16 3:20 pm Arnold Calhoun DO [Resident] - 11/06/16 2:15 pm Richard Villalba MD [Partnered Physician] - 11/06/16 8:45 am
[2016-10-29] MEDS: *HR* OxyCODONE/APAP 5/325 TABLET PO PRN ×3 (00:19→19:41)
[2016-10-29 05:13] LABS: Basophils % 0.2 %; Eosinophils # 0.1 K/mcL (0.0-0.6); Eosinophils % 1.2 %; Hematocrit 29.4 % (35.3-44.9); Hemoglobin 9.1 g/dL (11.5-15.4); Immature Granulocytes % 0.6 % (0-4); Mean Corpuscular Hemoglobin 26.3 pg (28.0-33.3); Mean Platelet Volume 9.9 fL (9.4-12.4); Monocytes # 0.6 K/mcL (0.0-1.3); Neutrophils # 8.3 K/mcL (1.6-8.9); Platelet Count 294 K/mcL (140-400); Red Blood Count 3.46 M/mcL (3.82-4.97); Red Cell Distribution Width 15.3 % (11.5-14.5)
[2016-10-29 05:18] LABS: INR 1.2; Prothrombin Time 12.8 Seconds (9.4-12.1)
[2016-10-29 05:24] LABS: Calcium 8.6 mg/dL (8.6-10.8); Magnesium 1.7 mg/dL (1.6-2.6); Phosphorous 3.3 mg/dL (2.3-4.7); Potassium 4.2 mEq/L (3.5-4.5)
[2016-10-29] MEDS ORDERED: Vancomycin 750 MG in D5% in Water 250 ML IVPB ONE (08:12)
--- NOTE | 2016-10-29 08:56 | Urology Progress Note ---
Date of Encounter: 10/29/16 Time of Encounter: 08:55 - Assessment and Plan (1) Bladder cancer Current Visit: Yes Status: Chronic Assessment and plan: Plan per medical oncology. Qualifiers: Bladder location: overlapping sites Qualified Code(s): C67.8 - Malignant neoplasm of overlapping sites of bladder (2) Hydronephrosis Current Visit: Yes Status: Acute Assessment and plan: Left hydronephrosis and worsening renal function. I was unable to place a stent. We will have IR place a left nephrostomy tube tomorrow. Appreciate IM support. Qualifiers: Hydronephrosis type: unspecified Qualified Code(s): N13.30 - Unspecified hydronephrosis Progress Note Narrative: Doing okay. Plan for left neph tube placement tomorrow. Objective Initial Vital Signs Temp Pulse Resp BP Pulse Ox 98.8 F 128 24 106/80 89 10/22/16 12:18 10/22/16 12:18 10/22/16 12:18 10/22/16 12:18 10/22/16 12:18 - General physical appearance Present: well developed, well nourished, no distress - Respiratory Present: normal respiratory effort - Abdomen Present: soft - Labs 10/29/16 05:03 10/29/16 05:03 Diabetes panel 10/29/16 Range/Units 05:03 Sodium 141 (136-145) mEq/L Potassium 4.2 (3.5-4.5) mEq/L Chloride 108 (98-109) mEq/L Carbon Dioxide 28 (19-29) mEq/L BUN 31 H (7-20) mg/dL Creatinine 2.00 H (0.57-1.11) mg/dL Glucose 85 (70-99) mg/dL Calcium 8.6 (8.6-10.8) mg/dL Calcium panel 10/29/16 Range/Units 05:03 Calcium 8.6 (8.6-10.8) mg/dL Phosphorus 3.3 (2.3-4.7) mg/dL Pituitary panel 10/29/16 Range/Units 05:03 Sodium 141 (136-145) mEq/L Potassium 4.2 (3.5-4.5) mEq/L Chloride 108 (98-109) mEq/L Carbon Dioxide 28 (19-29) mEq/L BUN 31 H (7-20) mg/dL Creatinine 2.00 H (0.57-1.11) mg/dL Glucose 85 (70-99) mg/dL Calcium 8.6 (8.6-10.8) mg/dL Adrenal panel 10/29/16 Range/Units 05:03 Sodium 141 (136-145) mEq/L Potassium 4.2 (3.5-4.5) mEq/L Chloride 108 (98-109) mEq/L Carbon Dioxide 28 (19-29) mEq/L BUN 31 H (7-20) mg/dL Creatinine 2.00 H (0.57-1.11) mg/dL Glucose 85 (70-99) mg/dL Calcium 8.6 (8.6-10.8) mg/dL - VTE Documentation of Mechanical Device: Intermittent pneumatic compression device Consult Discharge Plan - Plan Referrals: Georgina Kennedy MD [Primary Care Provider] - (PATIENT DOESN'T WANT TO SEE THIS DOCTOR ANYMORE) Luis Soto MD [Partnered Physician] - 11/03/16 3:20 pm Arnold Calhoun DO [Resident] - 11/06/16 2:15 pm Richard Villalba MD [Partnered Physician] - 11/06/16 8:45 am
[2016-10-29] MEDS ORDERED: Vancomycin 1,000 MG in D5% in Water 250 ML IVPB SCH (09:00)
--- NOTE | 2016-10-29 09:21 | Internal Med Progress Note ---
Date of Encounter: 10/29/16 Time of Encounter: 09:18 - Assessment and plan (1) UTI (urinary tract infection) Current Visit: Yes Status: Acute Assessment and plan: Urine cultures preliminary report positive for Gram positive cocci will start Vancomycin and de-escalate abx as per final culture report Pharmacy to renally dose vanco and monitor trough Qualifiers: Urinary tract infection type: site unspecified Hematuria presence: with hematuria Qualified Code(s): N39.0 - Urinary tract infection, site not specified; R31.9 - Hematuria, unspecified (2) Bladder cancer Current Visit: Yes Status: Chronic Assessment and plan: Reported history of advanced bladder cancer Urology and oncology input appreciated Status post cystoscopy done by urology yesterday (10/27/2016), unable to place stent, IR consulted for placement of left nephrostomy tube given left hydronephrosis, likely in am (10/30/16). NPO after midnight Hematuria persists H&H low but acceptable Will use IPCD for DVT ppx Qualifiers: Bladder location: overlapping sites Qualified Code(s): C67.8 - Malignant neoplasm of overlapping sites of bladder (3) Community acquired pneumonia Current Visit: Yes Status: Resolved Assessment and plan: Clinically improved Finished 7 day abx course on 10/28/16 (4) Anemia Current Visit: Yes Status: Acute Assessment and plan: H&H low but acceptable given persistent hematuria, will closely monitor H&H Transfuse as needed Qualifiers: Anemia type: unspecified type Qualified Code(s): D64.9 - Anemia, unspecified (5) CONNOR (acute kidney injury) Current Visit: Yes Status: Acute Assessment and plan: Renal function worsened from previous day Hydronephrosis secondary to tumor burden Interventional radiology consultation requested for Nephrostomy tube placement- likely placement in am (10/30/16) will continue to avoid nephrotoxic agents monitor renal function closely (6) Hydronephrosis Current Visit: Yes Status: Acute Assessment and plan: plan as listed above Qualifiers: Hydronephrosis type: unspecified Qualified Code(s): N13.30 - Unspecified hydronephrosis (7) COPD (chronic obstructive pulmonary disease) Current Visit: Yes Status: Chronic Assessment and plan: Not noted to be in acute exacerbation. Continue when necessary bronchodilators and supplemental oxygen. Qualifiers: COPD type: unspecified COPD Qualified Code(s): J44.9 - Chronic obstructive pulmonary disease, unspecified (8) Atrial fibrillation and flutter Current Visit: Yes Status: Chronic Assessment and plan: Rate controlled with BB ASA for CVA prophylaxis No anticoagulation b/o hematuria (9) DVT (deep venous thrombosis) Current Visit: Yes Status: Acute Assessment and plan: Pt was reported to have Rt gastrocnemius vein DVT. Given patient's hematuria, no anticoagulation was recommended IVC filter option discussed with pt but she refused. D/W hematology, will hold AC because it is distal DVT. Risk/benefit discussed with pt, pt agrees with the treatment plan. Qualifiers: DVT location: lower extremity Affected thrombotic vein of extremity: unspecified vein of extremity Laterality: right Chronicity: acute Qualified Code(s): I82.401 - Acute embolism and thrombosis of unspecified deep veins of right lower extremity (10) Chest pain Current Visit: Yes Status: Resolved Assessment and plan: resolved Qualifiers: Chest pain type: chest pain on breathing Qualified Code(s): R07.1 - Chest pain on breathing - Subjective Interval history: Patient seen and examined at bedside. Resting in bed and reports of feeling better compared to previous day. No overnight issues reported Patient is s/p cystoscopy (10/27/16) Pt encouraged to get out of bed to chair and increase activity as tolerated. - Constitutional Vitals: Temp Pulse Resp BP Pulse Ox 97.8 F 66 16 130/84 95 10/29/16 07:29 10/29/16 07:29 10/29/16 07:29 10/29/16 07:29 10/29/16 07:29 General appearance: Present: A&O X 3, no acute distress, answers questions appropriately - Head Head exam: Present: atraumatic, normocephalic - Respiratory Respiratory exam: Present: CTAB. Absent: accessory muscle use, rales, rhonchi, wheezes - Cardiovascular Cardiovascular exam: Present: RRR, +S1, +S2. Absent: diastolic murmur, gallop, rubs, systolic murmur - GI/Abdominal GI/Abdominal exam: Present: normal bowel sounds, soft, no peritoneal signs. Absent: distended, tenderness - Extremities Exam Extremities exam: Present: warm, radial pulses palpable and symetrical. Absent : calf tenderness, tenderness - Neurological Exam Neurological exam: Present: alert, oriented X3 - Psychiatric Psychiatric exam: Present: normal affect, normal mood Internal Medicine: Result - Labs CBC & Chem 7: 10/29/16 05:03 10/29/16 05:03 Labs: Short CBC 10/29/16 Range/Units 05:03 WBC 11.1 (4.3-11.1) K/mcL Hgb 9.1 L (11.5-15.4) g/dL Hct 29.4 L (35.3-44.9) % Plt Count 294 (140-400) K/mcL Neutrophils # 8.3 (1.6-8.9) K/mcL BMP 10/29/16 05:03 Sodium 141 Potassium 4.2 Chloride 108 Carbon Dioxide 28 BUN 31 H Creatinine 2.00 H Glucose 85 Calcium 8.6 - ABG Interpretation ABG results: PT/INR, D-dimer PT 12.8 Seconds (9.4-12.1) H 10/29/16 05:03 D-Dimer 2187 ng/mLFEU (0-500) H 10/22/16 12:41 - VTE Documentation of Mechanical Device: Intermittent pneumatic compression device Consult Discharge Plan - Plan Referrals: Georgina Kennedy MD [Primary Care Provider] - (PATIENT DOESN'T WANT TO SEE THIS DOCTOR ANYMORE) Luis Soto MD [Partnered Physician] - 11/03/16 3:20 pm Arnold Calhoun DO [Resident] - 11/06/16 2:15 pm Richard Villalba MD [Partnered Physician] - 11/06/16 8:45 am
[2016-10-29] MEDS: Famotidine 20 MG TABLET PO SCH (09:51)
[2016-10-29] MEDS: Aspirin Enteric Coated 81 MG Tablet PO SCH (09:51)
[2016-10-30] MEDS: *HR* OxyCODONE/APAP 5/325 TABLET PO PRN ×3 (03:15→20:43)
[2016-10-30 03:42] LABS: Basophils % 0.2 %; Eosinophils # 0.1 K/mcL (0.0-0.6); Hematocrit 30.6 % (35.3-44.9); Hemoglobin 9.3 g/dL (11.5-15.4); Immature Granulocytes % 0.9 % (0-4); Lymphocytes % 18.2 %; Mean Corpuscular HGB Conc 30.4 g/dL (31.6-35.5); Mean Corpuscular Hemoglobin 25.8 pg (28.0-33.3); Mean Corpuscular Volume 84.8 fL (83.0-100.0); Monocytes # 0.6 K/mcL (0.0-1.3); Monocytes % 5.2 %; Platelet Count 314 K/mcL (140-400); Red Blood Count 3.61 M/mcL (3.82-4.97); Red Cell Distribution Width 15.4 % (11.5-14.5); Segmented Neutrophils % 74.5 %
[2016-10-30 03:58] LABS: Calcium 8.6 mg/dL (8.6-10.8); Magnesium 1.5 mg/dL (1.6-2.6); Phosphorous 3.4 mg/dL (2.3-4.7); Potassium 3.8 mEq/L (3.5-4.5)
--- NOTE | 2016-10-30 07:08 | Urology Progress Note ---
Date of Encounter: 10/30/16 Time of Encounter: 07:07 - Assessment and Plan (1) Bladder cancer Current Visit: Yes Status: Chronic Qualifiers: Bladder location: overlapping sites Qualified Code(s): C67.8 - Malignant neoplasm of overlapping sites of bladder (2) Hydronephrosis Current Visit: Yes Status: Acute Assessment and plan: Plan for left nephrostomy tube today. Will reassess later today. Qualifiers: Hydronephrosis type: unspecified Qualified Code(s): N13.30 - Unspecified hydronephrosis Progress Note Narrative: Sleeping this morning. Objective Initial Vital Signs Temp Pulse Resp BP Pulse Ox 98.8 F 128 24 106/80 89 10/22/16 12:18 10/22/16 12:18 10/22/16 12:18 10/22/16 12:18 10/22/16 12:18 - General physical appearance Present: well developed, no distress - Labs 10/30/16 03:29 10/30/16 03:29 Diabetes panel 10/30/16 Range/Units 03:29 Sodium 142 (136-145) mEq/L Potassium 3.8 (3.5-4.5) mEq/L Chloride 109 (98-109) mEq/L Carbon Dioxide 26 (19-29) mEq/L BUN 32 H (7-20) mg/dL Creatinine 1.89 H (0.57-1.11) mg/dL Glucose 81 (70-99) mg/dL Calcium 8.6 (8.6-10.8) mg/dL Calcium panel 10/30/16 Range/Units 03:29 Calcium 8.6 (8.6-10.8) mg/dL Phosphorus 3.4 (2.3-4.7) mg/dL Pituitary panel 10/30/16 Range/Units 03:29 Sodium 142 (136-145) mEq/L Potassium 3.8 (3.5-4.5) mEq/L Chloride 109 (98-109) mEq/L Carbon Dioxide 26 (19-29) mEq/L BUN 32 H (7-20) mg/dL Creatinine 1.89 H (0.57-1.11) mg/dL Glucose 81 (70-99) mg/dL Calcium 8.6 (8.6-10.8) mg/dL Adrenal panel 10/30/16 Range/Units 03:29 Sodium 142 (136-145) mEq/L Potassium 3.8 (3.5-4.5) mEq/L Chloride 109 (98-109) mEq/L Carbon Dioxide 26 (19-29) mEq/L BUN 32 H (7-20) mg/dL Creatinine 1.89 H (0.57-1.11) mg/dL Glucose 81 (70-99) mg/dL Calcium 8.6 (8.6-10.8) mg/dL - VTE Documentation of Mechanical Device: Intermittent pneumatic compression device Consult Discharge Plan - Plan Referrals: Georgina Kennedy MD [Primary Care Provider] - (PATIENT DOESN'T WANT TO SEE THIS DOCTOR ANYMORE) Luis Soto MD [Partnered Physician] - 11/03/16 3:20 pm Arnold Calhoun DO [Resident] - 11/06/16 2:15 pm Richard Villalba MD [Partnered Physician] - 11/06/16 8:45 am
[2016-10-30] MEDS ORDERED: Magnesium Sulfate 1 GM in D5% in Water 100 ML IVPB ONE (07:34)
[2016-10-30] MEDS: Famotidine 20 MG TABLET PO SCH (08:52)
[2016-10-30] MEDS: Aspirin Enteric Coated 81 MG Tablet PO SCH (08:52)
--- NOTE | 2016-10-30 09:20 | Internal Med Progress Note ---
Date of Encounter: 10/30/16 Time of Encounter: 09:18 - Assessment and plan (1) UTI (urinary tract infection) Current Visit: Yes Status: Acute Assessment and plan: Urine cultures preliminary report positive for Gram positive cocci will continue Vancomycin and de-escalate abx as per final culture report Pharmacy to renally dose vanco and monitor trough Qualifiers: Urinary tract infection type: site unspecified Hematuria presence: with hematuria Qualified Code(s): N39.0 - Urinary tract infection, site not specified; R31.9 - Hematuria, unspecified (2) Bladder cancer Current Visit: Yes Status: Chronic Assessment and plan: Reported history of advanced bladder cancer Urology and oncology input appreciated Status post cystoscopy done by urology (10/27/2016) IR consulted for placement of left nephrostomy tube given left hydronephrosis- Scheduled for for today (10/30/16) Hematuria persists H&H low but acceptable Will use IPCD for DVT ppx Qualifiers: Bladder location: overlapping sites Qualified Code(s): C67.8 - Malignant neoplasm of overlapping sites of bladder (3) Community acquired pneumonia Current Visit: Yes Status: Resolved Assessment and plan: Clinically improved Finished 7 day abx course on 10/28/16 (4) Anemia Current Visit: Yes Status: Acute Assessment and plan: H&H low but acceptable will closely monitor H&H Transfuse as needed Qualifiers: Anemia type: unspecified type Qualified Code(s): D64.9 - Anemia, unspecified (5) CONNOR (acute kidney injury) Current Visit: Yes Status: Acute Assessment and plan: Renal function improved from previous day Hydronephrosis secondary to tumor burden Interventional radiology consultation requested for Nephrostomy tube placement- Scheduled for placement today (10/30/16) will continue to avoid nephrotoxic agents monitor renal function closely (6) Hydronephrosis Current Visit: Yes Status: Acute Assessment and plan: plan as listed above Qualifiers: Hydronephrosis type: unspecified Qualified Code(s): N13.30 - Unspecified hydronephrosis (7) COPD (chronic obstructive pulmonary disease) Current Visit: Yes Status: Chronic Assessment and plan: Not noted to be in acute exacerbation. Continue when necessary bronchodilators and supplemental oxygen. Qualifiers: COPD type: unspecified COPD Qualified Code(s): J44.9 - Chronic obstructive pulmonary disease, unspecified (8) Atrial fibrillation and flutter Current Visit: Yes Status: Chronic Assessment and plan: Rate controlled with BB ASA for CVA prophylaxis No anticoagulation b/o hematuria (9) DVT (deep venous thrombosis) Current Visit: Yes Status: Acute Assessment and plan: Pt was reported to have Rt gastrocnemius vein DVT. Given patient's hematuria, no anticoagulation was recommended IVC filter option discussed with pt but she refused. D/W hematology, will hold AC because it is distal DVT. Risk/benefit discussed with pt, pt agrees with the treatment plan. Qualifiers: DVT location: lower extremity Affected thrombotic vein of extremity: unspecified vein of extremity Laterality: right Chronicity: acute Qualified Code(s): I82.401 - Acute embolism and thrombosis of unspecified deep veins of right lower extremity (10) Chest pain Current Visit: Yes Status: Resolved Assessment and plan: resolved Qualifiers: Chest pain type: chest pain on breathing Qualified Code(s): R07.1 - Chest pain on breathing (11) Hypomagnesemia Current Visit: Yes Status: Acute Assessment and plan: Mg supplemented continue to monitor electrolytes and replace as needed - Subjective Interval history: Patient seen and examined at bedside. Resting in bed and reports of feeling better. No overnight issues reported. Scheduled for nephrostomy tube placement by IR today (10/30/16). Patient is s/p cystoscopy (10/27/16) Pt encouraged to get out of bed to chair and increase activity as tolerated. - Constitutional Vitals: Temp Pulse Resp BP Pulse Ox 97.9 F 69 17 136/81 96 10/30/16 07:56 10/30/16 07:56 10/30/16 07:56 10/30/16 07:56 10/30/16 07:56 General appearance: Present: A&O X 3, no acute distress, answers questions appropriately - Head Head exam: Present: atraumatic, normocephalic - Eye Eye exam: Present: normal appearance, conjuntiva pink, sclera anicteric - Respiratory Respiratory exam: Present: CTAB. Absent: accessory muscle use, rales, rhonchi, wheezes - Cardiovascular Cardiovascular exam: Present: RRR, +S1, +S2. Absent: diastolic murmur, gallop, rubs, systolic murmur - GI/Abdominal GI/Abdominal exam: Present: normal bowel sounds, soft, no peritoneal signs. Absent: distended, tenderness - Extremities Exam Extremities exam: Present: warm, radial pulses palpable and symetrical. Absent : calf tenderness, cyanotic, pedal edema - Neurological Exam Neurological exam: Present: alert, oriented X3 - Psychiatric Psychiatric exam: Present: normal affect, normal mood Internal Medicine: Result - Labs CBC & Chem 7: 10/30/16 03:29 10/30/16 03:29 Labs: Short CBC 10/30/16 Range/Units 03:29 WBC 10.8 (4.3-11.1) K/mcL Hgb 9.3 L (11.5-15.4) g/dL Hct 30.6 L (35.3-44.9) % Plt Count 314 (140-400) K/mcL Neutrophils # 8.0 (1.6-8.9) K/mcL BMP 10/30/16 03:29 Sodium 142 Potassium 3.8 Chloride 109 Carbon Dioxide 26 BUN 32 H Creatinine 1.89 H Glucose 81 Calcium 8.6 - ABG Interpretation ABG results: PT/INR, D-dimer PT 12.8 Seconds (9.4-12.1) H 10/29/16 05:03 D-Dimer 2187 ng/mLFEU (0-500) H 10/22/16 12:41 - VTE Documentation of Mechanical Device: Intermittent pneumatic compression device Consult Discharge Plan - Plan Referrals: Georgina Kennedy MD [Primary Care Provider] - (PATIENT DOESN'T WANT TO SEE THIS DOCTOR ANYMORE) Luis Soto MD [Partnered Physician] - 11/03/16 3:20 pm Arnold Calhoun DO [Resident] - 11/06/16 2:15 pm Richard Villalba MD [Partnered Physician] - 11/06/16 8:45 am
[2016-10-30] MEDS ORDERED: 0.9 % Sodium Chloride 500 ML ONE ×2 (12:51→13:28)
[2016-10-30] MEDS ORDERED: Ampicillin/Sulbactam 1,500 MG in 0.9 % Sodium Chloride Mini Bag 100 ML IVPB ONE (13:17)
[2016-10-30] MEDS ORDERED: *HR* Midazolam HCl 2 MG/2 ML VIAL ONE (13:29)
[2016-10-30] MEDS ORDERED: *HR* FentaNYL (PF) 100 MCG/2 ML VIAL ONE (13:29)
[2016-10-30] MEDS: *HR* FentaNYL (PF) 100 MCG/2 ML VIAL IVP PRN ×2 (13:32→13:37)
[2016-10-30] MEDS: *HR* Midazolam HCl 2 MG/2 ML VIAL IVP PRN ×2 (13:33→13:38)
--- NOTE | 2016-10-30 13:55 | IR Procedure Note ---
Date of procedure: 10/30/16 Consent Obtained: Written consent Timeout: Correct patient and procedure verified, Correct site verified, Time out performed, Skin prep completed Local anesthetic: Lidocaine 1% Indications: Bladder cancer with left hydro Procedure Performed: Left nephrsotomy Results/Findings: 10 F left nephrostomy placement Complications: None; Tolerated procedure well (Monitor on floor)
[2016-10-30] MEDS ORDERED: Vancomycin 1,000 MG in D5% in Water 250 ML IVPB ONE (14:00)
[2016-10-30] MEDS: Ringers Solution, Lactated 1,000 ML IVC SCH ×3 (14:36→19:44)
[2016-10-30] MEDS: *HR* Morphine 2 MG/ML SYRINGE IVP PRN ×2 (17:26→22:41)
[2016-10-31 04:45] LABS: Basophils % 0.2 %; Eosinophils # 0.1 K/mcL (0.0-0.6); Hematocrit 27.6 % (35.3-44.9); Hemoglobin 8.8 g/dL (11.5-15.4); Immature Granulocytes % 0.9 % (0-4); Lymphocytes % 10.5 %; Mean Corpuscular HGB Conc 31.9 g/dL (31.6-35.5); Mean Corpuscular Hemoglobin 27.2 pg (28.0-33.3); Mean Corpuscular Volume 85.2 fL (83.0-100.0); Mean Platelet Volume 10.7 fL (9.4-12.4); Monocytes # 0.5 K/mcL (0.0-1.3); Monocytes % 5.1 %; Neutrophils # 7.5 K/mcL (1.6-8.9); Platelet Count 262 K/mcL (140-400); Red Blood Count 3.24 M/mcL (3.82-4.97); Red Cell Distribution Width 15.5 % (11.5-14.5); Segmented Neutrophils % 82.3 %
[2016-10-31 05:09] LABS: Calcium 8.4 mg/dL (8.6-10.8); Magnesium 1.5 mg/dL (1.6-2.6); Phosphorous 3.2 mg/dL (2.3-4.7)
[2016-10-31] MEDS: *HR* OxyCODONE/APAP 5/325 TABLET PO PRN (05:59)
[2016-10-31] MEDS ORDERED: Magnesium Sulfate 1 GM in D5% in Water 100 ML IVPB ONE (07:25)
[2016-10-31] MEDS: Famotidine 20 MG TABLET PO SCH (07:44)
[2016-10-31] MEDS: Aspirin Enteric Coated 81 MG Tablet PO SCH (07:44)
[2016-10-31 07:52] VITALS: BP 121/79
--- NOTE | 2016-10-31 09:29 | Discharge Summary ---
Date of Encounter: 10/31/16 Time of Encounter: 08:25 - Discharge Diagnosis (1) UTI (urinary tract infection) Priority: Primary Status: Resolved Qualifiers: Urinary tract infection type: site unspecified Hematuria presence: with hematuria Qualified Code(s): N39.0 - Urinary tract infection, site not specified; R31.9 - Hematuria, unspecified (2) Bladder cancer Priority: Secondary Status: Chronic Qualifiers: Bladder location: overlapping sites Qualified Code(s): C67.8 - Malignant neoplasm of overlapping sites of bladder (3) Community acquired pneumonia Priority: Primary Status: Resolved (4) Anemia Priority: Secondary Status: Chronic Qualifiers: Anemia type: unspecified type Qualified Code(s): D64.9 - Anemia, unspecified (5) CONNOR (acute kidney injury) Priority: Secondary Status: Acute (6) Hydronephrosis Priority: Secondary Status: Chronic Qualifiers: Hydronephrosis type: unspecified Qualified Code(s): N13.30 - Unspecified hydronephrosis (7) COPD (chronic obstructive pulmonary disease) Priority: Secondary Status: Chronic Qualifiers: COPD type: unspecified COPD Qualified Code(s): J44.9 - Chronic obstructive pulmonary disease, unspecified (8) Atrial fibrillation and flutter Priority: Secondary Status: Chronic (9) DVT (deep venous thrombosis) Priority: Secondary Status: Acute Qualifiers: DVT location: lower extremity Affected thrombotic vein of extremity: unspecified vein of extremity Laterality: right Chronicity: acute Qualified Code(s): I82.401 - Acute embolism and thrombosis of unspecified deep veins of right lower extremity (10) Chest pain Priority: Secondary Status: Resolved Qualifiers: Chest pain type: chest pain on breathing Qualified Code(s): R07.1 - Chest pain on breathing (11) Hypomagnesemia Priority: Secondary Status: Acute - Discharge Medications Prescriptions: Aspirin Enteric Coated [Aspirin EC] 81 mg PO DAILY #30 tablet.dr Home Medications: Atorvastatin [Lipitor] 40 mg PO HS 08/21/16 [History] Lactobacillus Combo No.10 [Probiotic] 1 cap PO HS 08/21/16 [History] Metoprolol [Lopressor] 50 mg PO BID 08/21/16 [History] Multivitamin [Multi-Day Vitamins] 1 tab PO DAILY 08/21/16 [History] Docusate [Colace] 100 mg PO BID PRN #60 capsule 08/22/16 [Rx] OxyCODONE/APAP 5/325 [Percocet 5/325 MG] 1 tab PO Q4HR PRN 10/22/16 [History] Aspirin Enteric Coated [Aspirin EC] 81 mg PO DAILY #30 tablet. 10/31/16 [Rx] Allergies/Adverse Reactions: Allergies No Known Allergies Allergy (Verified 08/21/16 09:40) Procedures/tests Complete & Pending: Procedures Performed prior 72 hours Category Date Time Status IR nephrostomy [IR] Routine IR 10/30/16 Completed IR us guide needle place [IR] Routine IR 10/30/16 Completed Date of admission: 10/22/16 17:36 Primary care physician: Georgina Kennedy MD Consults: 10/22/16 18:42 Consult to Nutrition [CONS] Routine Comment: BLADDER CA. LARGE WEIGHT LOSS. Consulting Provider: NUTRITION Reason for Dietary Consult: MST Score 10/24/16 08:27 Consult to Oncology [CONS] Routine Consulting Provider: Oncology [facility] Reason for Consult: Muscle invasive bladder cancer. [facility] recommends neoadjuvant chemo Call Completed: Yes 10/28/16 07:45 Consult to Interventional Radiology [CONS] Routine Consulting Provider: Radiology Interventional [facility] Reason for Consult: Please place left nephrostomy tube on 10/30/2016. Call Completed: No 10/28/16 09:43 Consult to Physical Therapy [CONS] Routine Comment: Evaluate, develop and implement POC Discharging clinician: Sumaya Lang Anticipated date of discharge: 10/31/16 - Patient Status Disposition: Home, Self-Care Condition: Good - Discharge Instructions Follow Up With: Georgina Kennedy MD [Primary Care Provider] - (PATIENT DOESN'T WANT TO SEE THIS DOCTOR ANYMORE) Luis Soto MD [Partnered Physician] - 11/03/16 3:20 pm Arnold Calhoun DO [Resident] - 11/06/16 2:15 pm Janine Billy CNP [Partnered Physician] - 11/22/16 2:00 pm Richard Villalba MD [Partnered Physician] - 11/06/16 8:45 am Additional Instructions: Please follow up with your primary care physician, urology, oncology, and cardiology after discharge. Your appointments have been scheduled and are listed above. Your home dose of Lisinopril and Amiodarone has been discontinued. Aspirin has been added to your home medications. continue to closely monitor your BP and HR. Seek medication help if you have difficulty breathing or chest pain. Resume all home medications as prescribed by your primary care physician. - Diet and Activity Activity: resume usual activities as tolerated Diet: low salt diet Hospital course: Ms. Felton is a 66 year old female with past medical history of bladder cancer , PE, hyperlipidemia, hypertension, COPD, and atrial flutter who was admitted for management of pneumonia, rate uncontrolled atrial flutter. Patient was started on empiric IV abx and cardiology was consulted for rate control. Patient was in acute respiratory distress upon arrival and there was a concern for acute PE given patients history. V/Q scan showed low probability but she was noted to have hematuria due to her bladder ca. She further had a LE doppler which was positive for a acute DVT. Anticoagulation was not recommended given the persistent hematuria and patient refused IVC filter. She was started on aspirin for cva prophylaxis given history of afib/aflutter. Her home dose of amiodarone was discontinued and rate control was further achieved with Metoprolol. She was also followed by oncology and urology for her bladder ca and hematuria. She underwent cystoscopy. She was found to have CONNOR and hydronephrosis secondary to the bladder ca for which IR was consulted for nephrostomy tube placement. Patient was treated with IV abx for 7 days for pneumonia. She was found to have positive urine cultures however remained asymptomatic. She has received a total of 10 days of IV abx. She is currently asymptomatic. Renal function is improving. H&H is stable. Respiratory status is back to baseline, saturating well on room air. She will be discharged to home without abx with follow up with oncology, urology, and PCP. Pt refused home health services and states she will be able to take care of the nephrostomy tube on her own. - Time Spent with Patient Total time spent providing and/or coordinating discharge services: Greater than 30 minutes - Constitutional Vitals: Temp Pulse Resp BP Pulse Ox 98.2 F 95 16 121/79 92 10/31/16 07:49 10/31/16 07:49 10/31/16 07:49 10/31/16 07:49 10/31/16 07:54 General appearance: Present: A&O X 3, no acute distress, answers questions appropriately - Head Head exam: Present: atraumatic, normocephalic - Eye Eye exam: Present: normal appearance, conjuntiva pink, sclera anicteric - Respiratory Respiratory exam: Present: CTAB. Absent: accessory muscle use, rales, rhonchi, wheezes - Cardiovascular Cardiovascular exam: Present: RRR, +S1, +S2. Absent: diastolic murmur, gallop, rubs, systolic murmur - GI/Abdominal GI/Abdominal exam: Present: normal bowel sounds, soft, no peritoneal signs. Absent: distended, tenderness Additional comments: Left nephrostomy tube in place - Extremities Exam Extremities exam: Present: warm, radial pulses palpable and symetrical. Absent : calf tenderness, cyanotic, pedal edema - Neurological Exam Neurological exam: Present: alert, oriented X3 - Psychiatric Psychiatric exam: Present: normal affect, normal mood - VTE Documentation of Mechanical Device: Intermittent pneumatic compression device
== END 2016-10-31 10:54 | disposition home or self-care (01) | DRG 686 ==
LOC: 3BNU 12:16 → EMEROO 12:16 → 2NNU 15:15 → SUATTDRO 17:36 → 2NNU 17:43 → 2ANU 10-27 14:54
PROVIDERS: ADMIT Hospitalist; ATTEND Internal Medicine

== ENCOUNTER 2016-11-18 12:10 | Observation (INO) ==
[2016-11-18] MEDS ORDERED: Ondansetron 4 MG/2 ML VIAL IVP ONE (12:30)
[2016-11-18] MEDS ORDERED: 0.9 % Sodium Chloride 1,000 ML IVC ONE ×2 (12:30→12:32)
[2016-11-18 13:03] LABS: Basophils % 0.2 %; Eosinophils # 0.1 K/mcL (0.0-0.6); Eosinophils % 1.1 %; Hematocrit 30.5 % (35.3-44.9); Hemoglobin 9.2 g/dL (11.5-15.4); Immature Granulocytes % 0.5 % (0-4); Lymphocytes # 0.9 K/mcL (0.6-4.6); Mean Corpuscular HGB Conc 30.2 g/dL (31.6-35.5); Mean Corpuscular Hemoglobin 26.1 pg (28.0-33.3); Mean Corpuscular Volume 86.6 fL (83.0-100.0); Mean Platelet Volume 10.1 fL (9.4-12.4); Monocytes # 0.1 K/mcL (0.0-1.3); Monocytes % 0.6 %; Neutrophils # 6.9 K/mcL (1.6-8.9); Platelet Count 349 K/mcL (140-400); Red Blood Count 3.52 M/mcL (3.82-4.97); Red Cell Distribution Width 17.7 % (11.5-14.5); Segmented Neutrophils % 86.6 %
[2016-11-18 13:16] LABS: Albumin 2.7 g/dL (3.5-5.0); Albumin/Globulin Ratio 0.6 (1.1-2.2); Bilirubin,Total 0.6 mg/dL (0.2-1.2); Calcium 9.4 mg/dL (8.6-10.8); Globulin 4.7 g/dL (2.4-3.5); Potassium 4.2 mEq/L (3.5-4.5); Total Protein 7.4 g/dL (6.0-8.3)
[2016-11-18 13:20] LABS: Platelet Estimate Normal (Normal)
[2016-11-18] MEDS ORDERED: *HR* Metoprolol 5 MG/5 ML VIAL IVP ONE ×2 (14:24→16:04)
[2016-11-18] MEDS ORDERED: *HR* Heparin 5,000 UNIT/ML VIAL IVP ONE (14:38)
[2016-11-18] MEDS ORDERED: *HR* Heparin 5,000 UNIT/ML VIAL IVP PRN ×2 (14:38)
[2016-11-18] MEDS ORDERED: Heparin 25,000 UNIT/500 ML D5W 25,000 UNIT/500 ML MLS IVC SCH (14:45)
--- NOTE | 2016-11-18 14:49 | Emergency Department Note ---
Disposition Clinical Impression: Dehydration, Weakness Atrial flutter Qualifiers: Atrial flutter type: unspecified Qualified Code(s): I48.92 - Unspecified atrial flutter DVT (deep venous thrombosis) Qualifiers: DVT location: lower extremity Affected thrombotic vein of extremity: unspecified vein of extremity Laterality: unspecified laterality Chronicity: unspecified Qualified Code(s): I82.409 - Acute embolism and thrombosis of unspecified deep veins of unspecified lower extremity Disposition: Admitted As Inpatient General Adult HPI - General Chief complaint: ED General Medical Stated complaint: generalized weakness, not feeling well Time Seen by Provider: 11/18/16 12:20 Source: patient, family Mode of arrival: wheelchair Limitations: no limitations Nursing Notes Reviewed: Yes Vital Signs Reviewed: Yes - History of Present Illness HPI Narrative: Patient here for evaluation of generalized weakness. Patient was recently started on chemotherapy on Sunday. Sunday she felt fine to she began having nausea and was not tolerating fluids. Symptoms have progressed until today where she arrives stating that she feels uncomfortable all over. Patient denies any specific infectious symptoms including cough. Patient was diagnosed with bladder cancer and has nephrostomy tube placed. Nephrostomy tube was placed 2 weeks ago. Patient is chronically incontinent and were unable to obtain a urine sample. Patient will receive a workup for possible infection. Pain Scale: 6 - Related Data Home Medications Medication Instructions Recorded Confirmed Atorvastatin [Lipitor] 40 mg PO HS 08/21/16 11/18/16 Lactobacillus Combo No.10 1 cap PO HS 08/21/16 11/18/16 [Probiotic] Metoprolol [Lopressor] 50 mg PO BID 08/21/16 11/18/16 Multivitamin [Multi-Day Vitamins] 1 tab PO DAILY 08/21/16 11/18/16 OxyCODONE/APAP 10/325 [Percocet 1 tab PO Q8HR PRN 11/18/16 11/18/16 10/325 MG] Previous Rx's Medication Instructions Recorded Aspirin Enteric Coated [Aspirin EC] 81 mg PO DAILY #30 tablet. 10/31/16 Docusate [Colace] 100 mg PO BID PRN #60 capsule 11/03/16 Ondansetron [Zofran] 4 mg PO Q8HR PRN #90 tablet 11/03/16 Allergies Allergy/AdvReac Type Severity Reaction Status Date / Time No Known Allergies Allergy Verified 11/03/16 16:30 All systems ED: reviewed and negative except as stated. Constitutional: Reports: weakness. Denies: fever, chills Cardiovascular: Denies: chest pain, palpitations Respiratory: Denies: cough, dyspnea, wheezes Gastrointestinal: Reports: nausea. Denies: abdominal pain, vomiting, diarrhea Genitourinary: Denies: urgency, dysuria Musculoskeletal: Denies: back pain Integumentary: Denies: rash, abrasion Neurological: Reports: weakness. Denies: headache Endocrine: Reports: fatigue Past Medical History - Past Medical History Medical history: Reports: cancer, COPD, DVT, GERD, hypertension Surgical history: Reports: other Psychiatric history: Reports: anxiety, depression - Social History Smoking Status: Current every day smoker Smokeless Tobacco Status: No Alcohol use: Reports: none Drug use: Reports: none Physical Exam - General Limitations: no limitations General appearance: alert, in no apparent distress - Head Head exam: atraumatic, normocephalic - Eye Eye exam: Present: normal appearance - ENT ENT exam: normal exam, normal oropharynx - Neck Neck exam: Present: normal inspection - Chest Chest inspection: Present: normal inspection, symmetric chest wall rise - Respiratory Respiratory exam: Present: normal lung sounds bilaterally. Absent: respiratory distress, wheezes - Cardiovascular Cardiovascular exam: Present: tachycardia, irregular rhythm - Abdominal Exam Abdominal exam: Present: soft, Non-Tender - Extremities Exam Extremities exam: Present: normal inspection. Absent: tenderness - Back Exam Back exam: Present: normal inspection, other (Nephrostomy tube present). Absent : CVA tenderness (R), CVA tenderness (L) - Neurological Exam Neurological exam: Present: alert, oriented X3 - Psychiatric Psychiatric exam: Present: normal affect, normal mood - Skin Skin exam: Present: warm, dry, intact Course - Reevaluation(s) Reevaluation #1: Patient reevaluated and continues to be tachycardic. Patient's heart rate 116. We will give her dose of beta elizabeth and reevaluate. Patient states that she is improved but continues to feel generally weak. Her previous medical records were evaluated and she had a hospital stay at the beginning of this month. Patient was taken off her amiodarone and is currently only on metoprolol for rate control. She has received digoxin while in the hospital but was not sent home with this medication. Patient was found to have pneumonia and positive urine culture which she was treated with antibiotics for. Patient was diagnosed with a DVT and was started on anticoagulation which the patient was told to take her own request which she refuses to take secondary to gross hematuria. At this point with the patient's DVT and uncontrolled atrial flutter we are going to start heparin as we discussed the hospitalist further plan for admission. - Consultations Consultation #1: Discussed with Dr. Costello for admission. We will hold off on anticoagulation at this time as she has failed multiple therapies and has refused IVC filter. They will further discuss and reevaluate. Vital Signs Temperature 99.1 F 11/18/16 12:11 Pulse Rate 143 11/18/16 12:11 Respiratory Rate 22 11/18/16 12:11 Blood Pressure 115/88 11/18/16 12:11 O2 Sat by Pulse Oximetry 98 11/18/16 12:11 Temperature 99.1 F 11/18/16 12:11 Pulse Rate 102 11/18/16 15:00 Respiratory Rate 18 11/18/16 15:00 Blood Pressure 119/74 11/18/16 15:00 O2 Sat by Pulse Oximetry 100 11/18/16 15:00 Oxygen Delivery Oxygen Delivery Room Air Medical Decision Making - Medical Records Medical records reviewed: Yes I reviewed the patient's medical records. - Lab Data Lab results reviewed: Yes I reviewed the patient's lab results. Result diagrams: 11/18/16 12:47 11/18/16 12:47 Lab Results 11/18/16 11/18/16 11/18/16 Range/Units 12:47 12:47 12:47 WBC 8.0 (4.3-11.1) K/mcL RBC 3.52 L (3.82-4.97) M/mcL Hgb 9.2 L (11.5-15.4) g/dL Hct 30.5 L (35.3-44.9) % MCV 86.6 (83.0-100.0) fL MCH 26.1 L (28.0-33.3) pg MCHC 30.2 L (31.6-35.5) g/dL RDW 17.7 H (11.5-14.5) % Plt Count 349 (140-400) K/mcL MPV 10.1 (9.4-12.4) fL Immature Gran % 0.5 (0-4) % Seg Neutrophils % 86.6 % Lymphocytes % 11.0 % Monocytes % 0.6 % Eosinophils % 1.1 % Basophils % 0.2 % Neutrophils # 6.9 (1.6-8.9) K/mcL Lymphocytes # 0.9 (0.6-4.6) K/mcL Monocytes # 0.1 (0.0-1.3) K/mcL Eosinophils # 0.1 (0.0-0.6) K/mcL Basophils # 0.0 (0.0-0.2) K/mcL Platelet Estimate Normal (Normal) PT (9.4-12.1) Seconds INR APTT (26.0-36.0) Seconds Sodium 141 (136-145) mEq/L Potassium 4.2 (3.5-4.5) mEq/L Chloride 105 (98-109) mEq/L Carbon Dioxide 24 (19-29) mEq/L BUN 22 H (7-20) mg/dL Creatinine 1.36 H (0.57-1.11) mg/dL Est GFR ( Amer) 47 L (> 60) Est GFR (Non-Af Amer) 39 L (> 60) BUN/Creatinine Ratio 16 (6-26) Glucose 92 (70-99) mg/dL Calculated Osmolality 295 (280-300) Lactic Acid 1.0 (0.5-2.2) mmol/L Calcium 9.4 (8.6-10.8) mg/dL Total Bilirubin 0.6 (0.2-1.2) mg/dL AST 13 (5-34) Units/L ALT 15 (0-55) Units/L Alkaline Phosphatase 118 (38-126) Units/L Troponin I (0-0.03) ng/mL Serum Total Protein 7.4 (6.0-8.3) g/dL Albumin 2.7 L (3.5-5.0) g/dL Globulin 4.7 H (2.4-3.5) g/dL Albumin/Globulin Ratio 0.6 L (1.1-2.2) 11/18/16 11/18/16 Range/Units 12:59 14:45 WBC (4.3-11.1) K/mcL RBC (3.82-4.97) M/mcL Hgb (11.5-15.4) g/dL Hct (35.3-44.9) % MCV (83.0-100.0) fL MCH (28.0-33.3) pg MCHC (31.6-35.5) g/dL RDW (11.5-14.5) % Plt Count (140-400) K/mcL MPV (9.4-12.4) fL Immature Gran % (0-4) % Seg Neutrophils % % Lymphocytes % % Monocytes % % Eosinophils % % Basophils % % Neutrophils # (1.6-8.9) K/mcL Lymphocytes # (0.6-4.6) K/mcL Monocytes # (0.0-1.3) K/mcL Eosinophils # (0.0-0.6) K/mcL Basophils # (0.0-0.2) K/mcL Platelet Estimate (Normal) PT 14.1 H (9.4-12.1) Seconds INR 1.3 APTT 27.8 (26.0-36.0) Seconds Sodium (136-145) mEq/L Potassium (3.5-4.5) mEq/L Chloride (98-109) mEq/L Carbon Dioxide (19-29) mEq/L BUN (7-20) mg/dL Creatinine (0.57-1.11) mg/dL Est GFR ( Amer) (> 60) Est GFR (Non-Af Amer) (> 60) BUN/Creatinine Ratio (6-26) Glucose (70-99) mg/dL Calculated Osmolality (280-300) Lactic Acid (0.5-2.2) mmol/L Calcium (8.6-10.8) mg/dL Total Bilirubin (0.2-1.2) mg/dL AST (5-34) Units/L ALT (0-55) Units/L Alkaline Phosphatase (38-126) Units/L Troponin I 0.01 (0-0.03) ng/mL Serum Total Protein (6.0-8.3) g/dL Albumin (3.5-5.0) g/dL Globulin (2.4-3.5) g/dL Albumin/Globulin Ratio (1.1-2.2) - Radiology Data Radiology results reviewed: Yes I reviewed the patient's radiology results. - EKG Data EKG #1 EKG attestation: Yes I reviewed and interpreted this EKG. EKG results narrative: EKG shows atrial flutter with a ventricular rate of 144. Patient has what appears to be rate dependent ST depressions in the anterior lateral leads. Repeat EKG shows a ventricular rate of 107. Atrial flutter. QRS 129. QTC 402. Resolution of ST depressions in anterolateral leads. Patient has nonspecific T-wave changes to the inferior leads as well as the anterolateral leads that are consistent with previous EKG of 10/24/16. Attestation Statement - Attestation Attestation: I personally interviewed and examined this patient and my medical decision- making was reviewed with the ED Resident Physician, Dr. Rodriguez. I agree with the documented findings, disposition and treatment plan as described except to the extent set forth below. Patient is a 66-year-old white female with multiple medical problems who presents to the emergency department with generalized weakness and intractable nausea and vomiting. Patient has a complex medical history including multiple medical problems and most recently was admitted to the hospital approximately 10 days ago for atrial fibrillation/flutter, presumed secondary to pneumonia for which she was receiving antibiotics. Patient also was diagnosed with a lower extremity DVT and during the course of her hospitalization did have a VQ scan which was low probability for PE. Patient was offered placement of an IVC filter but declined. Patient just started chemotherapy for recently diagnosed bladder cancer and her first treatment was last Sunday. Patient states since she has been having gradually worsening nausea vomiting and inability to tolerate anything by mouth. Patient denies any fevers or chills, denies any abdominal pain associated with these symptoms, and states she had one episode of loose watery brown stool yesterday but no overwhelming diarrhea throughout this time frame. Patient arrives tachycardic with heart rate in the 140s but regular, and stable blood pressure. Pulse ox is 100% on room air and she is in no acute distress on arrival to the ED. Patient states she has a long history of tachycardia and had been on amiodarone for years for rate control until this most recent hospitalization during which time they discontinued her amiodarone, started her on an oral beta elizabeth and discharged her home on metoprolol 50 mg twice a day. Patient denies any form of chest pain pressure or heaviness at this time and no shortness of breath. She has not been compliant with her anticoagulants as she states that when she takes this causes gross hematuria. Patient appeared clinically dehydrated on exam. Agree with physical exam as documented. Upon arrival to the ED patient continuouscardiacmonitoringandpulseox, andIVfluidboluseswereinitiatedforpresumeddehydrationrelatedtoherrecentchemothera pyinitiation. Patient was given antiemetics as well. Patient had labs drawn and sent portal chest x-ray obtained. Overall patient's lab results look good for her she has stable H&H compared to prior, she has improved renal function despite clinical dehydration. After 2 L of fluid patient has a decrease in her heart rate from the 140s down to approximately 105 -10 9 bpm. I do feel that she probably has underlying exacerbation of her flutter that requires further rate control so we did give a dose of Lopressor here in the emergency department as well. Patient's blood pressure is been stable throughout. At this time we will admit the patient for generalized weakness, atrial fibrillation flutter, clinical dehydration, intractable nausea and vomiting. Patient most likely having a recurrence of her A. fib and flutter with decreased absorption of her medications due to nausea and vomiting. Discussed ED course with hospitalist and may request that we hold IV heparin at this time even with her tachycardia and outpatient noncompliance with [facility]. Patient was accepted to the hospitalist service at 3:15 PM.
[2016-11-18 14:57] LABS: INR 1.3; Prothrombin Time 14.1 Seconds (9.4-12.1)
[2016-11-18 15:00] LABS: Activated Partial Thrombo Time 27.8 Seconds (26.0-36.0)
[2016-11-18] MEDS ORDERED: Ondansetron 4 MG/2 ML VIAL IVP PRN (15:35)
[2016-11-18] MEDS ORDERED: *HR* HYDROcodone/Acet 5/325 mg TABLET PO PRN (15:35)
[2016-11-18] MEDS ORDERED: Naloxone 0.4 MG/ML INJ IVP PRN (15:35)
[2016-11-18] MEDS ORDERED: Acetaminophen 325 MG TABLET PO PRN (15:35)
--- NOTE | 2016-11-18 15:43 | Internal Med History&Physical ---
Date of Encounter: 11/18/16 Time of Encounter: 15:42 Assessment and Plan (1) Atrial flutter Current visit: Yes Status: Chronic With RVR Possibly multifactorial from dehydration, patient's inability to keep her oral medications down du to persistent vomiting ECHO done 09/2016 with EF 60%, indeterminate diastolic dysfunction, mild MR/TR, no pulm HTN, no PFO, normal wall motion-will not repeat Continue IVF hydration Will resume patient's home dose of lopressor po IV lopressor 5mg IV PRN HR >100 Patient is hemodynamically stable She is on ASA only, continue same No other anticoagulation due to hematuria Qualifiers: Atrial flutter type: unspecified Qualified Code(s): I48.92 - Unspecified atrial flutter (2) Emesis, persistent Current visit: Yes Status: Acute Continue antiemetics-Zofran and chlorpromazine prn Clear liquid diet Advance diet as tolerated (3) Weakness Current visit: Yes Status: Acute Possibly from dehydration May require PT/OT eval prior to discharge (4) Dehydration Current visit: Yes Status: Acute IVF hydration Chem with creatinine and GFr at baseline (5) Bladder cancer Current visit: Yes Status: Chronic Mgt per oncology No current indication for oncology consult Qualifiers: Bladder location: unspecified site Qualified Code(s): C67.9 - Malignant neoplasm of bladder, unspecified (6) COPD (chronic obstructive pulmonary disease) Current visit: Yes Status: Chronic No change in sputum color, frequency of cough, no recorded or documented fever, no leukocytosis Duonebs prn Qualifiers: COPD type: chronic bronchitis Chronic bronchitis type: unspecified Qualified Code(s): J42 - Unspecified chronic bronchitis (7) DVT (deep venous thrombosis) Current visit: Yes Status: Chronic Hx of DVT , anticoagulation was discontinued during last hospitalization due to acute blood loss anemia from hematuria (bladder tumor) patient declined IVC filter She still declined today Continue ASA Heparin for DVT prophylaxis Qualifiers: DVT location: lower extremity Affected thrombotic vein of extremity: unspecified vein of extremity Laterality: unspecified laterality Qualified Code(s): I82.509 - Chronic embolism and thrombosis of unspecified deep veins of unspecified lower extremity (8) Tobacco abuse Current visit: Yes Status: Chronic Cessation encouraged Declines NRT for now (9) CKD (chronic kidney disease) stage 3, GFR 30-59 ml/min Current visit: Yes Status: Chronic Cr stable at baseline Internal Medicine - H&P: HPI Chief complaint: Persistent nausea and vomiting Admitted From: Home Plans for Post Hospital Care: Home History of present illness: 66 Y/O F with PMH of Atrial fibrillation s/p ablation and cardioversion in 2008 and 2014 respectively, DVT not on anticoagulation due to hematuria, Bladder cancer s/p transurethral resection, s/p L nephrostomy tube placement, she also has a hx of COPD and nicotine dependence, cervical CA s/p JAHAIRA/BSO She is on chemotherapy She presented to the ER due to persistent nausea and vomiting following chemo and not responding to her home medications. She reports having several episodes of nausea and vomiting for the past 3 days, she reports vomiting multiple times until today when she has been having dry heaves. She also reports one episode of fever of 101.1 at home yesterday. She denies change in sputum color, no cough , no chest pain, no palpitations, no dizziness She had one episode of diarrhea last night, non-bloody, non-mucoid. She denies breathing difficulty, no leg swelling. There has been no change in the color of her urine nor her urinary habits No easy bruising, no skin rash She denies any neurological symptoms She has been unable to keep any food or medications down, hence her presentation to the ER Work up in ER revealed CXR unremarkable, EKG with Aflutter with RVR, HR 140s CBC Hb 9.2, PLT WNL, NO leukocytosis, INR WNL, Chem: Cr 1.36, electrolytes acceptable, Lactate is normal, LFTs unremarkable, troponin negative Blood culture, UA and urine cultures have been sent and pending She was treated with antiemetic, BB IV and presented to hospitalist for admission Past Med Surg Social Fam HX - Past Medical History Medical history: cancer, COPD, DVT, GERD, hypertension Psychiatric history: anxiety, depression - Past Surgical History Surgical History: other - Social History Smoking Status: Current every day smoker Smokeless Tobacco Status: No Alcohol use: none Drug use: none Internal Medicine - H&P: Meds Atorvastatin [Lipitor] 40 mg PO HS 08/21/16 [History] Lactobacillus Combo No.10 [Probiotic] 1 cap PO HS 08/21/16 [History] Metoprolol [Lopressor] 50 mg PO BID 08/21/16 [History] Multivitamin [Multi-Day Vitamins] 1 tab PO DAILY 08/21/16 [History] Aspirin Enteric Coated [Aspirin EC] 81 mg PO DAILY #30 tablet. 10/31/16 [Rx] Docusate [Colace] 100 mg PO BID PRN #60 capsule 11/03/16 [Rx] Ondansetron [Zofran] 4 mg PO Q8HR PRN #90 tablet 11/03/16 [Rx] OxyCODONE/APAP 10/325 [Percocet 10/325 MG] 1 tab PO Q8HR PRN 11/18/16 [History] Allergies No Known Allergies Allergy (Verified 11/03/16 16:30) All Systems PM: A 10-system review of systems was performed and is negative for pertinent findings except as documented above in the HPI. - Constitutional Constitutional: as per HPI - EENT Eyes: as per HPI Ears: as per HPI Nose, mouth and throat: as per HPI - Cardiovascular Cardiovascular ROS IM: as per HPI - Respiratory Respiratory: as per HPI - Gastrointestinal Gastrointestinal: as per HPI - Genitourinary Genitourinary: as per HPI - Musculoskeletal Musculoskeletal ROS IM: as per HPI - Integumentary Integumentary IM: as per HPI - Neurological Neurological ROS: as per HPI - Hematologic/Lymphatic Hematologic/Lymphatic: as per HPI - Allergic/Immunologic Allergic/Immunologic: as per HPI - Constitutional Vitals: Temp Pulse Resp BP Pulse Ox 99.1 F 102 18 119/74 100 11/18/16 12:11 11/18/16 15:00 11/18/16 15:00 11/18/16 15:00 11/18/16 15:00 Exam: Examination VS: Tachycardic on presentation, HR 140s improved to 102 with IVF hydration, At time of review, HR 110-120, BP WNL, Afebrile, Gen: Chronically ill looking, not in any form of distress HEENT: Moist oral mucosa, not cyanotic, KAREN, sclera anicteric Chest: CTAB, no wheezing Heart: S1, S2 only, tachycardia, irregular, no m/g/r Abdomen: Soft, not tender, no palpably enlarged organs, L nephrostomy tube, bag half filled with clear urine, wound dressing on L flank clean and dry Extremities: Well perfused, no edema Internal Med - H&P Results - Labs CBC & Chem 7: 11/18/16 12:47 11/18/16 12:47
[2016-11-18] MEDS ORDERED: 0.9 % Sodium Chloride 1,000 ML IVC SCH (15:45)
[2016-11-18] MEDS ORDERED: *HR* Metoprolol 5 MG/5 ML VIAL IVP PRN (16:04)
[2016-11-18] MEDS: Famotidine 20 MG/2 ML VIAL IVP SCH (18:34)
[2016-11-18] MEDS: *HR* Heparin 5,000 UNIT/ML VIAL SQ SCH (20:58)
[2016-11-18] MEDS: Metoprolol 100 MG TABLET PO SCH (21:02)
[2016-11-19 01:56] LABS: Bilirubin,Urine Negative (Negative); Blood,Urine Negative (Negative); Clarity,Urine Cloudy (Clear); Color,Urine Yellow (Yellow); Glucose,Urine (UA) Normal (Normal); Ketones,Urine Negative (Negative); Leukocyte Esterase,Urine Moderate (Negative); Nitrite,Urine Negative (Negative); Protein,Urine 30 mg/dL (Neg-Trace); Specific Gravity,Urine 1.011 (1.010-1.025); Urobilinogen,Urine Normal (Normal)
[2016-11-19 01:59] LABS: Bacteria,Urine None Seen per hpf (None-Few); Hyaline Casts,Urine None Seen per lpf (None-Few); Squamous Epithelial Cell,Urine Moderate per lpf (None-Few)
[2016-11-19 04:01] LABS: Basophils % 0.2 %; Eosinophils # 0.1 K/mcL (0.0-0.6); Eosinophils % 2.8 %; Hematocrit 25.3 % (35.3-44.9); Immature Granulocytes % 0.4 % (0-4); Lymphocytes # 1.2 K/mcL (0.6-4.6); Lymphocytes % 23.6 %; Mean Corpuscular Hemoglobin 26.3 pg (28.0-33.3); Mean Corpuscular Volume 87.5 fL (83.0-100.0); Mean Platelet Volume 10.4 fL (9.4-12.4); Monocytes # 0.1 K/mcL (0.0-1.3); Monocytes % 2.2 %; Neutrophils # 3.5 K/mcL (1.6-8.9); Platelet Count 249 K/mcL (140-400); Red Blood Count 2.89 M/mcL (3.82-4.97); Red Cell Distribution Width 17.7 % (11.5-14.5); Segmented Neutrophils % 70.8 %
[2016-11-19 04:07] LABS: Hemoglobin 7.6 g/dL (11.5-15.4)
[2016-11-19 04:15] LABS: Calcium 8.1 mg/dL (8.6-10.8); Magnesium 1.6 mg/dL (1.6-2.6); Phosphorous 3.1 mg/dL (2.3-4.7); Potassium 3.7 mEq/L (3.5-4.5)
[2016-11-19] MEDS: *HR* Heparin 5,000 UNIT/ML VIAL SQ SCH ×3 (05:43→21:05)
[2016-11-19] MEDS: Famotidine 20 MG/2 ML VIAL IVP SCH ×2 (05:43→18:06)
[2016-11-19] MEDS: Metoprolol 100 MG TABLET PO SCH ×2 (08:28→21:04)
[2016-11-19] MEDS: Lactobacillus 1 EACH CAP.SPRINK PO SCH (08:29)
[2016-11-19] MEDS: Aspirin Enteric Coated 81 MG Tablet PO SCH (08:29)
--- NOTE | 2016-11-19 09:19 | Internal Med Progress Note ---
Date of Encounter: 11/19/16 Time of Encounter: 09:18 - Assessment and plan (1) Atrial flutter Current Visit: Yes Status: Chronic Assessment and plan: HR controlled now RVR on admission Possibly multifactorial from dehydration, patient's inability to keep her oral medications down du to persistent vomiting ECHO done 09/2016 with EF 60%, indeterminate diastolic dysfunction, mild MR/TR, no pulm HTN, no PFO, normal wall motion-will not repeat Continue home dose of lopressor po IV lopressor 5mg IV PRN HR >100 Patient is hemodynamically stable She is on ASA only, continue same No other anticoagulation due to hematuria Qualifiers: Atrial flutter type: unspecified Qualified Code(s): I48.92 - Unspecified atrial flutter (2) Emesis, persistent Current Visit: Yes Status: Acute Assessment and plan: Improved, advance diet Possible d/c a.m (3) Weakness Current Visit: Yes Status: Acute Assessment and plan: Improved PT/OT eval prior to discharge (4) Dehydration Current Visit: Yes Status: Acute Assessment and plan: Improved s/p IVF Patient tolerating po, d.c IVF (5) Bladder cancer Current Visit: Yes Status: Chronic Assessment and plan: Mgt per oncology No current indication for oncology consult Qualifiers: Bladder location: unspecified site Qualified Code(s): C67.9 - Malignant neoplasm of bladder, unspecified (6) COPD (chronic obstructive pulmonary disease) Current Visit: Yes Status: Chronic Assessment and plan: No change in sputum color, frequency of cough, no recorded or documented fever, no leukocytosis Duonebs prn Qualifiers: COPD type: chronic bronchitis Chronic bronchitis type: unspecified Qualified Code(s): J42 - Unspecified chronic bronchitis (7) DVT (deep venous thrombosis) Current Visit: Yes Status: Chronic Qualifiers: DVT location: lower extremity Affected thrombotic vein of extremity: unspecified vein of extremity Laterality: unspecified laterality Chronicity : chronic Qualified Code(s): I82.509 - Chronic embolism and thrombosis of unspecified deep veins of unspecified lower extremity (8) Tobacco abuse Current Visit: Yes Status: Chronic Assessment and plan: Cessation encouraged Declines NRT for now (9) CKD (chronic kidney disease) stage 3, GFR 30-59 ml/min Current Visit: Yes Status: Chronic Assessment and plan: Cr stable (10) UTI (urinary tract infection) Current Visit: Yes Status: Suspected Assessment and plan: Suspected Started on ceftriaxone, follow urine culture, deescalate prn Qualifiers: Urinary tract infection type: site unspecified Hematuria presence: without hematuria Qualified Code(s): N39.0 - Urinary tract infection, site not specified - Subjective Interval history: Seen and evaluated at bedside No episodes of fever, or vomiting since admission reports mild nausea UA with positive LE-patient is asymptomatic HR has been controlled on home meds CBC with slight drop in HB, possibly dilutional, will monitor NO new complains - Constitutional Vitals: Temp Pulse Resp BP Pulse Ox 98.3 F 95 18 113/76 97 11/19/16 06:25 11/19/16 06:25 11/19/16 06:25 11/19/16 06:25 11/19/16 06:25 General appearance: Present: A&O X 3, pleasant, no acute distress - Head Head exam: Present: atraumatic, normocephalic - Eye Eye exam: Present: PERRL, conjuntiva pink, sclera anicteric Pupils: Present: PERRL - Neck Neck exam general surgery: Present: supple, trachea midline. Absent: lymphadenopathy - Respiratory Respiratory exam: Present: CTAB. Absent: accessory muscle use, rales, rhonchi, wheezes - Cardiovascular Cardiovascular exam: Present: RRR, +S1, +S2. Absent: diastolic murmur, gallop, rubs, systolic murmur - GI/Abdominal GI/Abdominal exam: Present: normal bowel sounds, soft, no peritoneal signs. Absent: distended, tenderness - Extremities Exam Extremities exam: Present: warm, radial pulses palpable and symetrical. Absent : calf tenderness, cyanotic, pedal edema - Neurological Exam Neurological exam: Present: alert, CN II-XII intact, oriented X3, no focal deficits. Absent: pronater drift, facial droop, speech deficit - Skin Skin exam: Present: dry, intact Internal Medicine: Result - Labs CBC & Chem 7: 11/19/16 03:29 11/19/16 03:29 Labs: Short CBC 11/19/16 Range/Units 03:29 WBC 4.9 (4.3-11.1) K/mcL Hgb 7.6 L D (11.5-15.4) g/dL Hct 25.3 L (35.3-44.9) % Plt Count 249 (140-400) K/mcL Neutrophils # 3.5 (1.6-8.9) K/mcL BMP 11/19/16 03:29 Sodium 141 Potassium 3.7 Chloride 111 H Carbon Dioxide 23 BUN 16 Creatinine 1.14 H Glucose 75 Calcium 8.1 L Urine 11/19/16 Range/Units 01:40 Urine Color Yellow (Yellow) Urine Clarity Cloudy A (Clear) Urine pH 7.0 (5.0-8.0) pH Units Ur Specific [place] 1.011 (1.010-1.025) Urine Protein 30 H (Neg-Trace) mg/dL Urine Glucose (UA) Normal (Normal) mg/dL - ABG Interpretation ABG results: PT/INR, D-dimer PT 14.1 Seconds (9.4-12.1) H 11/18/16 14:45 Consult Discharge Plan - Plan Referrals: Arnold Calhoun DO [Primary Care Provider] -
[2016-11-19] MEDS: *HR* HYDROmorphone (PF) 1 MG/ML SYRINGE IVP PRN ×2 (15:56→23:26)
--- NOTE | 2016-11-19 20:26 | Electrocardiograph Report ---
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
--- NOTE | 2016-11-19 20:28 | Electrocardiograph Report ---
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
[2016-11-20 04:19] LABS: Hemoglobin 7.4 g/dL (11.5-15.4)
[2016-11-20 04:23] LABS: Eosinophils % 1.6 %; Immature Granulocytes % 0.8 % (0-4); Immature Platelets 3.2 % (1.1-6.1); Lymphocytes # 1.4 K/mcL (0.6-4.6); Lymphocytes % 53.5 %; Mean Corpuscular HGB Conc 30.8 g/dL (31.6-35.5); Mean Corpuscular Hemoglobin 26.8 pg (28.0-33.3); Mean Platelet Volume 10.6 fL (9.4-12.4); Monocytes # 0.1 K/mcL (0.0-1.3); Monocytes % 4.7 %; Platelet Count 222 K/mcL (140-400); Red Blood Count 2.76 M/mcL (3.82-4.97); Red Cell Distribution Width 17.5 % (11.5-14.5); Segmented Neutrophils % 39.4 %
[2016-11-20 04:30] LABS: BUN/Creatinine Ratio 14 (6-26); Blood Urea Nitrogen 15 mg/dL (7-20); Calcium 8.1 mg/dL (8.6-10.8); Carbon Dioxide 21 mEq/L (19-29); Chloride 111 mEq/L (98-109); Glucose 71 mg/dL (70-99); Osmolality,Calculated 289 (280-300); Potassium 3.8 mEq/L (3.5-4.5); Sodium 140 mEq/L (136-145); eGFR For African Americans > 60 (> 60); eGFR For Non-African Americans 51 (> 60)
[2016-11-20] MEDS: *HR* Heparin 5,000 UNIT/ML VIAL SQ SCH (05:17)
[2016-11-20] MEDS: Famotidine 20 MG/2 ML VIAL IVP SCH (05:17)
[2016-11-20 06:00] LABS: Hypochromasia Present (Not Present); Platelet Estimate Normal (Normal)
[2016-11-20] MEDS ORDERED: *HR* HYDROmorphone (PF) 1 MG/ML SYRINGE IVP PRN (08:01)
[2016-11-20] MEDS: Lactobacillus 1 EACH CAP.SPRINK PO SCH (09:07)
[2016-11-20] MEDS: Aspirin Enteric Coated 81 MG Tablet PO SCH (09:07)
[2016-11-20] MEDS: Metoprolol 100 MG TABLET PO SCH ×2 (09:07→21:09)
[2016-11-20] MEDS ORDERED: 0.9 % Sodium Chloride 250 ML ONE (10:30)
--- NOTE | 2016-11-20 11:23 | Internal Med Progress Note ---
Date of Encounter: 11/20/16 Time of Encounter: 11:23 - Assessment and plan (1) Atrial flutter Current Visit: Yes Status: Chronic Assessment and plan: HR controlled now RVR on admission Possibly multifactorial from dehydration, patient's inability to keep her oral medications down du to persistent vomiting ECHO done 09/2016 with EF 60%, indeterminate diastolic dysfunction, mild MR/TR, no pulm HTN, no PFO, normal wall motion-will not repeat Continue home dose of lopressor po IV lopressor 5mg IV PRN HR >100 Patient is hemodynamically stable She is on ASA only, continue same Agreed to low dose eliquis today, will schedule Qualifiers: Atrial flutter type: unspecified Qualified Code(s): I48.92 - Unspecified atrial flutter (2) Emesis, persistent Current Visit: Yes Status: Acute Assessment and plan: Improved, advance diet Possible d/c a.m (3) Weakness Current Visit: Yes Status: Acute Assessment and plan: Improved PT/OT eval suggests home PT, patient declined For d/c home a.m if HB stable (4) Dehydration Current Visit: Yes Status: Acute Assessment and plan: Improved s/p IVF Patient tolerating po, d.c IVF (5) Bladder cancer Current Visit: Yes Status: Chronic Assessment and plan: Mgt per oncology Onc consulted today per request Qualifiers: Bladder location: unspecified site Qualified Code(s): C67.9 - Malignant neoplasm of bladder, unspecified (6) COPD (chronic obstructive pulmonary disease) Current Visit: Yes Status: Chronic Assessment and plan: No change in sputum color, frequency of cough, no recorded or documented fever, no leukocytosis Duonebs prn Qualifiers: COPD type: chronic bronchitis Chronic bronchitis type: unspecified Qualified Code(s): J42 - Unspecified chronic bronchitis (7) DVT (deep venous thrombosis) Current Visit: Yes Status: Chronic Assessment and plan: Restart eliquis, monitor HB Qualifiers: DVT location: lower extremity Affected thrombotic vein of extremity: unspecified vein of extremity Laterality: unspecified laterality Chronicity : chronic Qualified Code(s): I82.509 - Chronic embolism and thrombosis of unspecified deep veins of unspecified lower extremity (8) Tobacco abuse Current Visit: Yes Status: Chronic Assessment and plan: Cessation encouraged Declines NRT for now (9) CKD (chronic kidney disease) stage 3, GFR 30-59 ml/min Current Visit: Yes Status: Chronic Assessment and plan: Cr stable (10) UTI (urinary tract infection) Current Visit: Yes Status: Suspected Assessment and plan: Suspected Urine culture done in ER was from nephrostmy tube, grossly mixed Repeat urine culture done today, will follow Continue ceftriaxone Qualifiers: Urinary tract infection type: site unspecified Hematuria presence: without hematuria Qualified Code(s): N39.0 - Urinary tract infection, site not specified (11) Anemia Current Visit: Yes Status: Chronic Assessment and plan: Acute on chronic, possibly due to chemotherapy Transfused with one unit today, continue to monitor Qualifiers: Anemia type: unspecified type Qualified Code(s): D64.9 - Anemia, unspecified - Subjective Interval history: Seen and evaluated at bedside No episodes of fever, or vomiting since admission reports mild nausea UA with positive LE-patient is asymptomatic Preliminary urine culture grossly mixed, repeat culture from clean catch Hb continues to drop, will transfuse with one unit after extensive discussion, patient agreed to anticoagulation with Eliquis 2.5mg bid - Constitutional Vitals: Temp Pulse Resp BP Pulse Ox 98.1 F 92 16 105/73 99 11/20/16 10:59 11/20/16 10:59 11/20/16 10:59 11/20/16 10:59 11/20/16 10:59 General appearance: Present: A&O X 3, pleasant, no acute distress - Head Head exam: Present: atraumatic, normocephalic - Eye Eye exam: Present: sclera anicteric. Absent: conjuntiva pink Pupils: Present: PERRL Additional comments: Clinically pale looking - Neck Neck exam general surgery: Present: supple, trachea midline. Absent: lymphadenopathy - Respiratory Respiratory exam: Present: CTAB. Absent: accessory muscle use, rales, rhonchi, wheezes - Cardiovascular Cardiovascular exam: Present: RRR, +S1, +S2. Absent: diastolic murmur, gallop, rubs, systolic murmur - GI/Abdominal GI/Abdominal exam: Present: normal bowel sounds, soft, no peritoneal signs. Absent: distended, tenderness Additional comments: L flank wound dressing clean and dry, bag with clear urine - Extremities Exam Extremities exam: Present: warm, radial pulses palpable and symetrical. Absent : calf tenderness, cyanotic, pedal edema - Neurological Exam Neurological exam: Present: alert, CN II-XII intact, oriented X3, no focal deficits. Absent: pronater drift, facial droop, speech deficit - Skin Skin exam: Present: dry, intact Internal Medicine: Result - Labs CBC & Chem 7: 11/20/16 03:46 11/20/16 03:46 Labs: Short CBC 11/20/16 Range/Units 03:46 WBC 2.6 L (4.3-11.1) K/mcL Hgb 7.4 L (11.5-15.4) g/dL Hct 24.0 L (35.3-44.9) % Plt Count 222 (140-400) K/mcL Neutrophils # 1.0 L (1.6-8.9) K/mcL BMP 11/20/16 03:46 Sodium 140 Potassium 3.8 Chloride 111 H Carbon Dioxide 21 BUN 15 Creatinine 1.08 Glucose 71 Calcium 8.1 L - ABG Interpretation ABG results: PT/INR, D-dimer PT 14.1 Seconds (9.4-12.1) H 11/18/16 14:45 Consult Discharge Plan - Plan Referrals: Arnold Calhoun DO [Primary Care Provider] -
--- NOTE | 2016-11-20 12:49 | Oncology Inp Consult Note ---
<Konstantin Levine - Last Filed: 11/20/16 16:17> Date of Encounter: 11/20/16 Time of Encounter: 12:46 Assessment and Plan (1) Bladder tumor Status: Acute Assessment and plan: Patient was diagnosed with high-grade muscle invasive urothelial carcinoma, patient was seen by urologist at the [facility] September of this year, she was recommended for neoadjuvant chemotherapy and evaluate radiologically corresponds before determining the role of radical cystectomy due to cT4 disease , patient's first chemotherapy was done 6 days ago and 2 days later she started having intractable nausea/vomiting therefore she was admitted to the hospital for the same reason. Currently patient denies GI symptom and she is able to tolerate diet. Initial plan was to start her on carboplatin AUC of 2 weekly with gemcitabine weekly dose and reevaluate her with imaging studies after 2 months with treatment, but for now will wait till her GI symptoms completely resolve for next treatment. (2) History of deep vein thrombosis (DVT) of lower extremity Status: Acute Assessment and plan: Venous Doppler lower extremity ultrasound from September this year showed right gastrocnemius distal DVT, VQ scan showed low probability for PE, patient has a history of multiple bleeding from bladder tumor when she is on anticoagulation therefore anticoagulation was held recently, patient does not want to have IVC filter, patient also has a history of atrial fibrillation and she has a risk of stroke if not anticoagulated. According to hospitalist note from this morning, patient was agreeable to start taking Eliquis. - Data of Consult Patient: known to practice within the last 3 years Consult date: 11/20/16 Requesting Physician: Chico Carolina MD Primary Care Provider: Arnold Calhoun, - Consult Narrative Reason for consult: Bladder cancer and a history of DVT History of present illness: Ms. Felton is a 66 year old female with a history of atrial fibrillation, pulmonary embolism, DVT, and bladder cancer, who presented to the ER with chief complaint of intractable nausea and vomiting following her first chemotherapy for her bladder cancer 6 days ago. 2 days later the chemotherapy patient started having these symptoms and she was admitted to the hospital for the same reason. Patient underwent transurethral resection of bladder tumor in August this year and the tumor was extending around the bladder neck measuring 2.5 cm necrotic with muscle invasion and adherent to the pubic bone, pathology report showed high-grade muscle invasive urothelial carcinoma and a bone scan did not show any evidence of metastatic disease done in August 2016. Today when I saw her patient was eating lunch without complaining of nausea/vomiting, GI symptoms improved significantly compared to the day she came in to the hospital , hematology/oncology was consulted for further recommendation. Past Med Surg Social Fam HX - Past Medical History Medical history: cancer, COPD, DVT, GERD, hypertension Psychiatric history: anxiety, depression - Past Surgical History Surgical History: other - Social History Smoking Status: Current every day smoker Smokeless Tobacco Status: No Alcohol use: none Drug use: none - Family History Mother Living Status: Still Living Hx Family Cardiac Disorders: Yes (HTN) Hx Family Cancer: Yes (non-hodgkins lymphoma) Hx Family Neurologic Disorders: Yes (dementia) Medications and Allergies Atorvastatin [Lipitor] 40 mg PO HS 08/21/16 [History] Lactobacillus Combo No.10 [Probiotic] 1 cap PO HS 08/21/16 [History] Metoprolol [Lopressor] 50 mg PO BID 08/21/16 [History] Multivitamin [Multi-Day Vitamins] 1 tab PO DAILY 08/21/16 [History] Aspirin Enteric Coated [Aspirin EC] 81 mg PO DAILY #30 tablet. 10/31/16 [Rx] Docusate [Colace] 100 mg PO BID PRN #60 capsule 11/03/16 [Rx] Ondansetron [Zofran] 4 mg PO Q8HR PRN #90 tablet 11/03/16 [Rx] OxyCODONE/APAP 10/325 [Percocet 10/325 MG] 1 tab PO Q8HR PRN 11/18/16 [History] Allergies No Known Allergies Allergy (Verified 11/03/16 16:30) Review of systems: Initially patient presented with nausea and vomiting, but this morning patient denies headache, chill, shortness of breath, productive cough, chest pain, abdominal pain, constipation, diarrhea or dysuria. Oncology - Exam - Constitutional Vitals: Temp Pulse Resp BP Pulse Ox 98.1 F 92 16 105/73 99 11/20/16 10:59 11/20/16 10:59 11/20/16 10:59 11/20/16 10:59 11/20/16 10:59 General appearance: average body habitus, cooperative, no acute distress - Head Head exam: Present: atraumatic, normal inspection, normocephalic - Eye Eye exam: Present: EOMI, PERRL Pupils: Present: PERRL - ENT ENT exam: Present: mucous membranes dry, normal external ear exam - Neck Neck exam: Absent: lymphadenopathy, tenderness - Respiratory Respiratory exam: Present: CTAB. Absent: accessory muscle use, rales, respiratory distress, wheezes - Cardiovascular Cardiovascular exam: Present: RRR, +S1, +S2. Absent: clicks, rubs, systolic murmur - GI/Abdominal GI/Abdominal exam: Present: normal bowel sounds, soft. Absent: firm, guarding, rebound, rigid, tenderness - Extremities Exam Extremities exam: Present: normal inspection. Absent: calf tenderness, tenderness - Back Exam Additional comments: Left nephrostomy tube in place - Neurological Exam Neurological exam: Present: alert, CN II-XII intact, oriented X3, no focal deficits. Absent: altered Consult Discharge Plan - Plan Referrals: Arnold Calhoun DO [Primary Care Provider] - <Luis Soto - Last Filed: 11/20/16 17:39> Date of Encounter: 11/20/16 - Data of Consult Requesting Physician: Chico Carolina MD Primary Care Provider: Arnold Calhoun DO - Consult Narrative History of present illness: Ms. Felton is a 66 year old female with bladder cancer known to us in clinic s/ p first wk of chemotherapy admitted with nausea, vomiting following wkly low dose carbo/gemzar. Compazine/zofran did not help. Labs reviewed kidney function nl. She ate lunch wo complaints of emesis. Pepcid has helped her. ANticoagulation to be started due to hx A fib and DVT. She has no bleeding currently Chemotherapy dose due today will be rescheduled later this wk. Possible d/c in AM if stable. I have seen examined patient myself and reviewed the history physical findings, impression and plan as noted above by Jorge L Sandy which reflects my assessment and plan that was discussed during rounds. Oncology - Exam - Constitutional Vitals: Temp Pulse Resp BP Pulse Ox 98.0 F 70 15 112/73 96 11/20/16 14:20 11/20/16 14:20 11/20/16 14:20 11/20/16 14:20 11/20/16 14:20
[2016-11-20] MEDS: APIXABAN 5 MG TABLET PO SCH (21:09)
[2016-11-21 05:41] LABS: Hematocrit 27.5 % (35.3-44.9); Hemoglobin 8.6 g/dL (11.5-15.4); Immature Granulocytes % 0.5 % (0-4); Lymphocytes # 1.4 K/mcL (0.6-4.6); Lymphocytes % 36.6 %; Mean Corpuscular HGB Conc 31.3 g/dL (31.6-35.5); Mean Corpuscular Volume 86.5 fL (83.0-100.0); Mean Platelet Volume 10.3 fL (9.4-12.4); Monocytes # 0.2 K/mcL (0.0-1.3); Monocytes % 4.7 %; Neutrophils # 2.2 K/mcL (1.6-8.9); Platelet Count 191 K/mcL (140-400); Red Blood Count 3.18 M/mcL (3.82-4.97); Red Cell Distribution Width 16.8 % (11.5-14.5); Segmented Neutrophils % 58.2 %
[2016-11-21] MEDS: Aspirin Enteric Coated 81 MG Tablet PO SCH (07:41)
[2016-11-21] MEDS: Metoprolol 100 MG TABLET PO SCH (07:41)
[2016-11-21] MEDS: APIXABAN 5 MG TABLET PO SCH (07:41)
[2016-11-21] MEDS: Lactobacillus 1 EACH CAP.SPRINK PO SCH (07:41)
[2016-11-21 08:06] VITALS: BP 130/80
--- NOTE | 2016-11-21 12:25 | Discharge Summary ---
Date of Encounter: 11/21/16 Time of Encounter: 11:00 - Discharge Diagnosis (1) Bladder tumor Priority: Secondary Status: Acute (2) Atrial flutter Priority: Secondary Status: Chronic Qualifiers: Atrial flutter type: unspecified Qualified Code(s): I48.92 - Unspecified atrial flutter (3) DVT (deep venous thrombosis) Priority: Secondary Status: Chronic Qualifiers: DVT location: lower extremity Affected thrombotic vein of extremity: unspecified vein of extremity Laterality: unspecified laterality Chronicity : chronic Qualified Code(s): I82.509 - Chronic embolism and thrombosis of unspecified deep veins of unspecified lower extremity (4) Hydronephrosis Priority: Secondary Status: Chronic Qualifiers: Hydronephrosis type: other Qualified Code(s): N13.39 - Other hydronephrosis (5) Anemia Priority: Primary Status: Chronic Qualifiers: Anemia type: unspecified type Qualified Code(s): D64.9 - Anemia, unspecified (6) Dehydration Priority: Primary Status: Acute (7) Weakness Priority: Primary Status: Acute (8) Emesis, persistent Priority: Primary Status: Acute - Discharge Medications Home Medications: Atorvastatin [Lipitor] 40 mg PO HS 08/21/16 [History] Lactobacillus Combo No.10 [Probiotic] 1 cap PO HS 08/21/16 [History] Metoprolol [Lopressor] 50 mg PO BID 08/21/16 [History] Multivitamin [Multi-Day Vitamins] 1 tab PO DAILY 08/21/16 [History] Aspirin Enteric Coated [Aspirin EC] 81 mg PO DAILY #30 tablet. 10/31/16 [Rx] Docusate [Colace] 100 mg PO BID PRN #60 capsule 11/03/16 [Rx] Ondansetron [Zofran] 4 mg PO Q8HR PRN #90 tablet 11/03/16 [Rx] OxyCODONE/APAP 10/325 [Percocet 10/325 MG] 1 tab PO Q8HR PRN 11/18/16 [History] Apixaban [Eliquis] 2.5 mg PO BID #0 tablet 11/21/16 [Rx] Allergies/Adverse Reactions: Allergies No Known Allergies Allergy (Verified 11/03/16 16:30) - Notes to Outpatient Provider Pt is started Eliquis 2.5mg po bid. Please f/u with H/H and hematuria. Date of admission: 11/18/16 15:27 Primary care physician: Arnold Calhoun DO Consults: 11/18/16 17:19 Consult to Nutrition [CONS] Routine Comment: Consulting Provider: NUTRITION Reason for Dietary Consult: MST Score 11/19/16 13:03 Consult to Physical Therapy [CONS] Routine Comment: Evaluate, develop and implement POC Reason for Consult: Weakness 11/19/16 13:04 Consult to Occupational Therapy [CONS] Routine Comment: Evaluate, develop and implement POC Reason for Consult: Generalized weakness 11/20/16 07:56 Consult to Oncology [CONS] Routine Consulting Provider: On[facility] Reason for Consult: Known to your team, bladder cancer, DVT, not on anticoagulation, chemo-induced emesis, requests oncology review Call Completed: No Discharging clinician: Cori Almazan Anticipated date of discharge: 11/21/16 - Patient Status Disposition: Home, Self-Care Condition: Good Functional capacity at discharge: independent ambulation Overall status at discharge: patient is back to baseline - Discharge Instructions Follow Up With: Arnold Calhoun DO [Primary Care Provider] - Forms: ED Satisfaction Letter, Work/School Release - Diet and Activity Activity: increase activity as tolerated Diet: advance to your usual diet Interval History: 66 Y/O F with PMH of Atrial fibrillation s/p ablation and cardioversion in 2008 and 2014 respectively, DVT not on anticoagulation due to hematuria, Bladder cancer s/p transurethral resection, s/p L nephrostomy tube placement, she also has a hx of COPD and nicotine dependence, cervical CA s/p JAHAIRA/BSO She is on chemotherapy She presented to the ER due to persistent nausea and vomiting following chemo and not responding to her home medications. She reports having several episodes of nausea and vomiting for the past 3 days, she reports vomiting multiple times until today when she has been having dry heaves. She also reports one episode of fever of 101.1 at home yesterday. She denies change in sputum color, no cough , no chest pain, no palpitations, no dizziness She had one episode of diarrhea last night, non-bloody, non-mucoid. She denies breathing difficulty, no leg swelling. There has been no change in the color of her urine nor her urinary habits No easy bruising, no skin rash She denies any neurological symptoms She has been unable to keep any food or medications down, hence her presentation to the ER Hospital course: Ms. Felton is a 66 year old female was admitted as anemia, weakness, dehydration. She was treated with IVF, PRBC transfusion. Her symptoms has improved after treatment. Patient has a history of A Flutter and distal DVT. her anticoagulation was on hold because of hematuria. During this hospitalization, risk and benefits discussed with patient, she agrees to start low-dose Eliquis. I saw and examined the patient. She is awake alert, oriented 3. No further nausea vomiting, tolerated a regular diet. Vital signs stable. Patient is stable to discharge home and continue follow-up with oncology and urology as outpatient. Time spent discussing smoking cessation with patient: 3 to 10 minutes - Time Spent with Patient Total time spent providing and/or coordinating discharge services: 40 min - Constitutional Vitals: Temp Pulse Resp BP Pulse Ox 98.2 F 87 16 130/80 96 11/21/16 08:02 11/21/16 08:02 11/21/16 08:02 11/21/16 08:02 11/21/16 08:02 General appearance: Present: A&O X 3, pleasant, no acute distress - Head Head exam: Present: atraumatic, normocephalic - Eye Eye exam: Present: PERRL, conjuntiva pink, sclera anicteric Pupils: Present: PERRL - Neck Neck exam general surgery: Present: supple, trachea midline. Absent: lymphadenopathy - Respiratory Respiratory exam: Present: CTAB. Absent: accessory muscle use, rales, rhonchi, wheezes - Cardiovascular Cardiovascular exam: Present: RRR, +S1, +S2. Absent: diastolic murmur, gallop, rubs, systolic murmur - GI/Abdominal GI/Abdominal exam: Present: normal bowel sounds, soft, no peritoneal signs. Absent: distended, tenderness Additional comments: Left nephrotomy tube is in place. - Extremities Exam Extremities exam: Present: warm, radial pulses palpable and symetrical. Absent : calf tenderness, cyanotic, pedal edema - Neurological Exam Neurological exam: Present: CN II-XII intact, oriented X3, no focal deficits. Absent: pronater drift, facial droop, speech deficit - Skin Skin exam: Present: dry, intact
[2016-11-21] MEDS ORDERED: Famotidine 20 MG TABLET PO SCH (21:00)
[2016-11-21] MEDS ORDERED: Famotidine 20 MG/2 ML VIAL IVP SCH (21:00)
== END 2016-11-21 15:31 | disposition home or self-care (01) ==
LOC: EMEROO 12:10 → 3ANU 12:10 → SUATTDRO 11-20 07:54
PROVIDERS: ADMIT Internal Medicine; ATTEND Internal Medicine

== ENCOUNTER 2017-06-08 13:26 | Inpatient (IN) ==
--- NOTE | 2017-06-08 13:46 | Emergency Department Note ---
Disposition Clinical Impression: Weakness, CONNOR (acute kidney injury), Hypokalemia Nausea & vomiting Qualifiers: Vomiting type: unspecified Vomiting Intractability: non-intractable Qualified Code(s): R11.2 - Nausea with vomiting, unspecified Anemia Qualifiers: Anemia type: unspecified type Qualified Code(s): D64.9 - Anemia, unspecified Disposition: Admitted As Inpatient Condition: Fair Time of Disposition: 18:55 General Adult HPI - General Chief complaint: ED Nausea/Vomiting/Diarrhea Stated complaint: n/v/d/weakness Time Seen by Provider: 06/08/17 13:31 Nursing Notes Reviewed: Yes Vital Signs Reviewed: Yes - History of Present Illness HPI Narrative: Mrs. Felton, 66-year-old female, presents from home for evaluation of nausea, vomiting, diarrhea, weakness. Patient has current bladder cancer and is on chemotherapy. Last chemotherapy was 06/01 and was her second round. Next chemotherapy is 06/12. She reports decrease in appetite, progressive nausea with vomiting 1 (nonbilious, nonbloody), fever 100.4 by mouth at home, generalized abdominal pain, watery diarrhea times multiple episodes (no hematochezia, no melena). Patient has a left-sided nephrostomy tube. She is incontinent of urine. Habits: Current smoker ROS: Positive: Nausea, vomiting, diarrhea, fever, weakness, abdominal pain Negative: Chest pain, palpitation, dyspnea, diaphoresis, and usual back pain, neck pain, headache, vertigo - Related Data Home Medications Medication Instructions Recorded Confirmed Atorvastatin [Lipitor] 40 mg PO HS 08/21/16 06/08/17 Lactobacillus Combo No.10 1 cap PO HS 08/21/16 06/08/17 [Probiotic] Metoprolol [Lopressor] 50 mg PO BID 08/21/16 06/08/17 Multivitamin [Multi-Day Vitamins] 1 tab PO DAILY 08/21/16 06/08/17 Diltiazem CD (24hr) [Cardizem CD] 180 mg PO DAILY 01/08/17 06/08/17 Ferrous Sulfate [Iron] 325 mg PO DAILY 03/09/17 06/08/17 Citalopram Hydrobromide 40 mg PO DAILY 06/08/17 06/08/17 [Citalopram HBr] Previous Rx's Medication Instructions Recorded Docusate [Colace] 100 mg PO BID PRN #60 capsule 12/18/16 Apixaban [Eliquis] 2.5 mg PO BID #60 tablet 01/26/17 Promethazine [Phenergan] 12.5 mg PO Q6HR PRN #30 tablet 05/11/17 LORazepam [Ativan] 0.5 mg PO BID PRN #30 tablet 06/01/17 Allergies Allergy/AdvReac Type Severity Reaction Status Date / Time No Known Allergies Allergy Verified 03/09/17 11:13 All systems ED: reviewed and negative except as stated. Review of Systems: As Per HPI Past Medical History - Past Medical History Medical history: Reports: atrial fibrillation, cancer, COPD, DVT, GERD, hypertension Surgical history: Reports: other Psychiatric history: Reports: anxiety, depression - Social History Smoking Status: Current every day smoker Smokeless Tobacco Status: No Alcohol use: Reports: none Drug use: Reports: none Physical Exam Vital Signs Reviewed General: Patient is alert, oriented, and in no acute distress. She appears tired, pale, older than stated age. She is not cachectic. HEENT: No facial asymmetry. Head is normocephalic and atraumatic. PERRLA, EOMI. oral mucosa tacky. Trachea midline. Cardiovascular: Heart regular rate and rhythm without clicks, rubs, gallops, or murmurs. No JVD. PMI nondisplaced. Respiratory: Symmetric chest rise with poor respiratory effort. Bilateral breath sounds are clear without wheezing, crackles, or rhonchi. Abdomen: Bowel sounds present normoactive x-4 quadrants. Abdomen is soft, nondistended. Generalized tenderness to palpation; no rebound or guarding. Musculoskeletal: Spontaneously moving all extremities. Neuro: Alert and oriented 4. Skin: Warm, dry, pale. Psych: Patient's affect is appropriate for situation. Course Course Narrative: Patient is on chemotherapy and febrile intake. She does not meet SIRS criteria on intake vitals. Even so, will workup as if she were septic, looking for source of fever. Clinically suspect urinary source. Patient's EKG shows ST depressions in V2, V3, V4. She has no chest pain at this time. Troponin is 0.01. Patient is developing anemia. Recommend following on an inpatient basis. Urinalysis concerning for UTI. This is likely cause of patient's fever. We will provide empiric Rocephin with culture pending. Patient's nausea has improved. She is agreeable to admission to the hospital for continued evaluation and management. Patient is anemic at 8.5, down from 10.3 appx 2 weeks ago. No gross bleeding. Potentially marrow suppression from chemotherapy; I discussed this with delivery consultant Heme/Onc and type/screen'd the patient. Patient is hypokalemic. While in the ER received 40mEq KCl. Patient is hypocalcemic at 8.0. Given her hypoalbuminemia at 2.3, her corrected serum calcium is calculated to 9.68 per UpToDate. No indication for correction of calcium at this time. Discussed the patient with [facility] MA[facility], who agrees to accept the patient for continued evaluation and management. Vital Signs Temperature 100.5 F H 06/08/17 13:39 Pulse Rate 70 06/08/17 13:39 Respiratory Rate 18 06/08/17 13:39 Blood Pressure 116/52 06/08/17 13:39 O2 Sat by Pulse Oximetry 97 06/08/17 13:39 Temperature 100.5 F H 06/08/17 13:39 Pulse Rate 50 06/08/17 19:00 Respiratory Rate 18 06/08/17 20:14 Blood Pressure 101/53 06/08/17 20:14 O2 Sat by Pulse Oximetry 96 06/08/17 19:00 Oxygen Delivery Oxygen Delivery Room Air Medical Decision Making - Medical Records Medical records reviewed: Yes I reviewed the patient's medical records. - Lab Data Lab results reviewed: Yes I reviewed the patient's lab results. Result diagrams: 06/08/17 14:07 06/08/17 14:07 Lab Results 06/08/17 06/08/17 06/08/17 Range/Units 14:07 14:07 14:07 WBC 6.6 (4.3-11.1) K/mcL RBC 2.70 L (3.82-4.97) M/mcL Hgb 8.5 L (11.5-15.4) g/dL Hct 26.4 L (35.3-44.9) % MCV 97.8 (83.0-100.0) fL MCH 31.5 (28.0-33.3) pg MCHC 32.2 (31.6-35.5) g/dL RDW 16.7 H (11.5-14.5) % Plt Count 99 L (140-400) K/mcL MPV 11.3 (9.4-12.4) fL Immature Gran % 0.3 (0-4) % Seg Neutrophils % 84.9 % Lymphocytes % 6.9 % Monocytes % 7.9 % Eosinophils % 0.0 % Basophils % 0.0 % Neutrophils # 5.6 (1.6-8.9) K/mcL Lymphocytes # 0.5 L (0.6-4.6) K/mcL Monocytes # 0.5 (0.0-1.3) K/mcL Eosinophils # 0.0 (0.0-0.6) K/mcL Basophils # 0.0 (0.0-0.2) K/mcL Immature Plt Fraction 7.1 H (1.1-6.1) % Sodium 137 (136-145) mEq/L Potassium 3.2 L (3.5-4.5) mEq/L Chloride 105 (98-109) mEq/L Carbon Dioxide 19 (19-29) mEq/L BUN 26 H (7-20) mg/dL Creatinine 1.02 (0.57-1.11) mg/dL Est GFR ( Amer) > 60 (> 60) Est GFR (Non-Af Amer) 54 L (> 60) BUN/Creatinine Ratio 25 (6-26) Glucose 102 H (70-99) mg/dL Calculated Osmolality 289 (280-300) Lactic Acid 0.8 (0.5-2.2) mmol/L Calcium 8.0 L (8.6-10.8) mg/dL Magnesium 1.6 (1.6-2.6) mg/dL Total Bilirubin 0.4 (0.2-1.2) mg/dL Direct Bilirubin 0.2 (0.0-0.5) mg/dL Indirect Bilirubin 0.2 (0.0-1.2) mg/dL AST 14 (5-34) Units/L ALT 11 (0-55) Units/L Alkaline Phosphatase 106 (38-126) Units/L Troponin I (0-0.03) ng/mL Serum Total Protein 6.0 (6.0-8.3) g/dL Albumin 2.3 L (3.5-5.0) g/dL Globulin 3.7 H (2.4-3.5) g/dL Albumin/Globulin Ratio 0.6 L (1.1-2.2) Lipase 10 (8-78) Units/L Ur Specimen Adequacy Urine Color (Yellow) Urine Clarity (Clear) Urine pH (5.0-8.0) pH Units Ur Specific [place] (1.010-1.025) Urine Protein (Neg-Trace) mg/dL Urine Glucose (UA) (Normal) mg/dL Urine Ketones (Negative) mg/dL Urine Blood (Negative) Urine Nitrite (Negative) Urine Bilirubin (Negative) Urine Urobilinogen (Normal) mg/dL Ur Leukocyte Esterase (Negative) Urine Microscopic RBC (0-3) per hpf Urine Microscopic WBC (0-3) per hpf Ur Squamous Epith Cells (None-Few) per lpf Uric Acid Crystals Urine Bacteria (None-Few) per hpf Hyaline Casts (None-Few) per lpf Ur Culture Indicated? (NO) Blood Type Antibody Screen 06/08/17 06/08/17 06/08/17 Range/Units 14:07 17:39 19:24 WBC (4.3-11.1) K/mcL RBC (3.82-4.97) M/mcL Hgb (11.5-15.4) g/dL Hct (35.3-44.9) % MCV (83.0-100.0) fL MCH (28.0-33.3) pg MCHC (31.6-35.5) g/dL RDW (11.5-14.5) % Plt Count (140-400) K/mcL MPV (9.4-12.4) fL Immature Gran % (0-4) % Seg Neutrophils % % Lymphocytes % % Monocytes % % Eosinophils % % Basophils % % Neutrophils # (1.6-8.9) K/mcL Lymphocytes # (0.6-4.6) K/mcL Monocytes # (0.0-1.3) K/mcL Eosinophils # (0.0-0.6) K/mcL Basophils # (0.0-0.2) K/mcL Immature Plt Fraction (1.1-6.1) % Sodium (136-145) mEq/L Potassium (3.5-4.5) mEq/L Chloride (98-109) mEq/L Carbon Dioxide (19-29) mEq/L BUN (7-20) mg/dL Creatinine (0.57-1.11) mg/dL Est GFR ( Amer) (> 60) Est GFR (Non-Af Amer) (> 60) BUN/Creatinine Ratio (6-26) Glucose (70-99) mg/dL Calculated Osmolality (280-300) Lactic Acid (0.5-2.2) mmol/L Calcium (8.6-10.8) mg/dL Magnesium (1.6-2.6) mg/dL Total Bilirubin (0.2-1.2) mg/dL Direct Bilirubin (0.0-0.5) mg/dL Indirect Bilirubin (0.0-1.2) mg/dL AST (5-34) Units/L ALT (0-55) Units/L Alkaline Phosphatase (38-126) Units/L Troponin I 0.01 (0-0.03) ng/mL Serum Total Protein (6.0-8.3) g/dL Albumin (3.5-5.0) g/dL Globulin (2.4-3.5) g/dL Albumin/Globulin Ratio (1.1-2.2) Lipase (8-78) Units/L Ur Specimen Adequacy See below A Urine Color Yellow (Yellow) Urine Clarity Turbid A (Clear) Urine pH 5.5 (5.0-8.0) pH Units Ur Specific [place] > 1.030 H (1.010-1.025) Urine Protein 100 H (Neg-Trace) mg/dL Urine Glucose (UA) Normal (Normal) mg/dL Urine Ketones Negative (Negative) mg/dL Urine Blood Small H (Negative) Urine Nitrite Positive A (Negative) Urine Bilirubin Negative (Negative) Urine Urobilinogen Normal (Normal) mg/dL Ur Leukocyte Esterase Moderate H (Negative) Urine Microscopic RBC 3-5 H (0-3) per hpf Urine Microscopic WBC TNTC H (0-3) per hpf Ur Squamous Epith Cells Moderate H (None-Few) per lpf Uric Acid Crystals Present Urine Bacteria Moderate H (None-Few) per hpf Hyaline Casts None Seen (None-Few) per lpf Ur Culture Indicated? YES A (NO) Blood Type A POSITIVE Antibody Screen NEGATIVE - EKG Data EKG #1 EKG attestation: Yes I reviewed and interpreted this EKG. EKG results narrative: EKG dated a weight June 2017 at 14:12 reproduction specialist as sinus rhythm with rate of 60. Intervals NJ 150, QRS 137, QT/QTC 432/433. Left axis. Right bundle branch block. ST depression in leads V2, V3, V4 new from comparison EKG dated 12/26/2016.
[2017-06-08] MEDS ORDERED: Ondansetron 4 MG/2 ML VIAL IVP ONE (13:56)
[2017-06-08] MEDS ORDERED: Piperacillin/Tazobactam 3.375 GM in Water for inj. (sterile) 20 ML IVP ONE (13:57)
[2017-06-08] MEDS ORDERED: 0.9 % Sodium Chloride 1,000 ML IVC ONE (13:57)
[2017-06-08 14:23] LABS: Hematocrit 26.4 % (35.3-44.9); Hemoglobin 8.5 g/dL (11.5-15.4); Immature Granulocytes % 0.3 % (0-4); Lymphocytes # 0.5 K/mcL (0.6-4.6); Lymphocytes % 6.9 %; Mean Corpuscular HGB Conc 32.2 g/dL (31.6-35.5); Mean Corpuscular Hemoglobin 31.5 pg (28.0-33.3); Mean Corpuscular Volume 97.8 fL (83.0-100.0); Mean Platelet Volume 11.3 fL (9.4-12.4); Monocytes # 0.5 K/mcL (0.0-1.3); Monocytes % 7.9 %; Neutrophils # 5.6 K/mcL (1.6-8.9); Red Cell Distribution Width 16.7 % (11.5-14.5); Segmented Neutrophils % 84.9 %
[2017-06-08 14:25] LABS: Immature Platelets 7.1 % (1.1-6.1); Platelet Count 99 K/mcL (140-400)
[2017-06-08 14:30] LABS: Alanine Aminotransferase 11 Units/L (0-55); Albumin 2.3 g/dL (3.5-5.0); Albumin/Globulin Ratio 0.6 (1.1-2.2); Alkaline Phosphatase 106 Units/L (38-126); Aspartate Amino Transferase 14 Units/L (5-34); BUN/Creatinine Ratio 25 (6-26); Bilirubin,Direct 0.2 mg/dL (0.0-0.5); Bilirubin,Indirect 0.2 mg/dL (0.0-1.2); Bilirubin,Total 0.4 mg/dL (0.2-1.2); Blood Urea Nitrogen 26 mg/dL (7-20); Carbon Dioxide 19 mEq/L (19-29); Chloride 105 mEq/L (98-109); Globulin 3.7 g/dL (2.4-3.5); Glucose 102 mg/dL (70-99); Lipase 10 Units/L (8-78); Magnesium 1.6 mg/dL (1.6-2.6); Osmolality,Calculated 289 (280-300); Potassium 3.2 mEq/L (3.5-4.5); Sodium 137 mEq/L (136-145); eGFR For African Americans > 60 (> 60); eGFR For Non-African Americans 54 (> 60)
[2017-06-08] MEDS ORDERED: *HR* HYDROmorphone (PF) 1 MG/ML SYRINGE IVP ONE (14:34)
--- NOTE | 2017-06-08 14:39 | Emergency Department Note ---
START Narrative - START START: I examined this patient and my medical decision-making was reviewed with the Resident Physician. I agree with the documented findings, disposition and treatment plan as described except to the extent set forth below. 66 year old female presntse to the ED with complaints of abdominal pain and nausea/vomitting she also has a history of bladder cancer and is currently being treated with chemo/radiation about 7 days ago was her last treatment. Patient also has a nephrostomy tube which apears to be in good possiiotn without signs of infection around it. PAtinet states that she has had pneumonia in the past and UTIs. She is febrile for us and has new ischmeic demand changes in v3 with ST depressions which is new from her previous ekg although the RBBB is chronic. We will do sepsis protocol workup and admit to medicine.
[2017-06-08 17:48] LABS: Bilirubin,Urine Negative (Negative); Blood,Urine Small (Negative); Clarity,Urine Turbid (Clear); Color,Urine Yellow (Yellow); Glucose,Urine (UA) Normal (Normal); Ketones,Urine Negative (Negative); Leukocyte Esterase,Urine Moderate (Negative); Nitrite,Urine Positive (Negative); PH,Urine 5.5 pH Units (5.0-8.0); Protein,Urine 100 mg/dL (Neg-Trace); Specific Gravity,Urine > 1.030 (1.010-1.025); Urobilinogen,Urine Normal (Normal)
[2017-06-08 17:52] LABS: Bacteria,Urine Moderate per hpf (None-Few); Hyaline Casts,Urine None Seen per lpf (None-Few); Squamous Epithelial Cell,Urine Moderate per lpf (None-Few); WBC,Urine TNTC per hpf (0-3)
[2017-06-08 18:07] LABS: Uric Acid Crystals,Urine Present
[2017-06-08] MEDS ORDERED: cefTRIAXone 2,000 MG in Water for inj. (sterile) 20 ML IVP ONE (18:41)
[2017-06-09] MEDS ORDERED: Albuterol 2.5 MG/3 ML NEBULIZER IH PRN (01:06)
[2017-06-09] MEDS ORDERED: Ondansetron 4 MG/2 ML VIAL IVP PRN (01:06)
[2017-06-09] MEDS ORDERED: Mag Hydrox/Al Hydrox/Simeth 30 ML UDC PO PRN (01:09)
[2017-06-09] MEDS ORDERED: Acetaminophen 325 MG TABLET PO PRN (01:09)
[2017-06-09] MEDS ORDERED: Naloxone 0.4 MG/ML INJ IVP PRN (01:09)
[2017-06-09] MEDS ORDERED: *HR* LORazepam 0.5 MG TABLET PO PRN (01:12)
--- NOTE | 2017-06-09 01:20 | Internal Med History&Physical ---
Date of Encounter: 06/09/17 Time of Encounter: 21:00 Assessment and Plan (1) UTI (urinary tract infection) Current visit: Yes Status: Suspected Patient presented with a low-grade fever, nausea vomiting and diarrhea and suprapubic and flank pain. CT abdomen done in ER showed right hydronephrosis. No significant leukocyte count but history of recurrent UTI in the past. Chest x-ray also showed bilateral atelectasis could be due to emphysema versus pneumonia. At this time blood culture and urine culture pending and IV Zosyn will be started. Qualifiers: Urinary tract infection type: site unspecified Hematuria presence: without hematuria Qualified Code(s): N39.0 - Urinary tract infection, site not specified (2) Hydronephrosis Current visit: Yes Status: Chronic Patient has history of bladder cancer and left nephrostomy tube. This time she has right hydronephrosis which is quite symptomatic. Morning team needs to call urology for further evaluation and possible nephrostomy tube on the right as well as cystoscopy. Renal function will be followed. Qualifiers: Hydronephrosis type: other Qualified Code(s): N13.39 - Other hydronephrosis (3) Atrial fibrillation and flutter Current visit: Yes Status: Chronic History of atrial flutter fibrillation.Continue Eliquis. No further DVT prophylaxis needed (4) Bladder cancer Current visit: Yes Status: Chronic Patient has history of multiple cancers including cervical and ovarian cancer and she is status post total abdominal hysterectomy. She has been diagnosed with bladder cancer and she goes to [facility]. She has muscle invasive endothelial cancer Currently she is on chemotherapy. Oncology is consulted during this admission by ER. Qualifiers: Bladder location: unspecified site Qualified Code(s): C67.9 - Malignant neoplasm of bladder, unspecified (5) COPD (chronic obstructive pulmonary disease) Current visit: Yes Status: Chronic Resume nebulizers Qualifiers: COPD type: chronic bronchitis Chronic bronchitis type: unspecified Qualified Code(s): J42 - Unspecified chronic bronchitis (6) Nausea & vomiting Current visit: Yes Status: Acute Start IV fluid. IV Zofran when necessary Potassium noted low therefore corrected. Follow the BMP. Also has diarrhea therefore I will check stool for C. difficile Qualifiers: Vomiting type: unspecified Vomiting Intractability: non-intractable Qualified Code(s): R11.2 - Nausea with vomiting, unspecified (7) Hypokalemia Current visit: Yes Status: Acute EKG shows nonspecific Non specific ST changes. Correct K and recheck in am. Order magnesium and potassium (8) Abdominal aortic aneurysm Current visit: Yes Status: Acute Less than 3 cm need and will need annual follow up Qualifiers: Presence of rupture: without rupture Qualified Code(s): I71.4 - Abdominal aortic aneurysm, without rupture Internal Medicine - H&P: HPI Chief complaint: Abdominal pain nausea vomiting diarrhea Admitted From: Home Plans for Post Hospital Care: Home History of present illness: Ms. Felton is a 66 year old female with history of multiple cancers including cervical/ovarian and bladder cancer. Currently she is receiving chemotherapy for her bladder cancer. Last chemotherapy was on June 01. She has come to ER with suprapubic pain, nausea vomiting diarrhea and low-grade fever. She has a left nephrostomy tube. However work pain is more on the suprapubic region as well as right flank. No hematuria noted. CT abdomen in ER showed right hydroureter. Patient has an extensive history. She had cervical, question ovarian cancer in the past and had total abdominal hysterectomy. Now she is diagnosed with a bladder cancer and she is under evaluation and treatment at [facility]. On June 01 she had chemotherapy and since then she has been having lower abdominal pain nausea vomiting diarrhea. She has history of UTI in the past. She is running low-grade fever mild cough and chest CT and x-ray showed bilateral atelectasis raising question for possible pneumonia. Patient also had nonspecific ST depression in V234 leads but denies any chest pain. Apparently her potassium is low and magnesium was not checked. Patient uses Eliquis for her atrial fibrillation. She also has history of COPD and AAA with aortic diameter size of 2.9 this year and she will need follow-up next year. Past Med Surg Social Fam HX - Past Medical History Medical history: atrial fibrillation, cancer, COPD, DVT, GERD, hypertension Psychiatric history: anxiety, depression - Past Surgical History Surgical History: other - Social History Smoking Status: Current every day smoker Packs per day: 1/2 PPD Smokeless Tobacco Status: No Alcohol use: none Drug use: none - Family History Mother Living Status: Still Living Hx Family Cardiac Disorders: Yes (HTN) Hx Family Cancer: Yes (non-hodgkins lymphoma) Hx Family Neurologic Disorders: Yes (dementia) Internal Medicine - H&P: Meds Atorvastatin [Lipitor] 40 mg PO HS 08/21/16 [History] Lactobacillus Combo No.10 [Probiotic] 1 cap PO HS 08/21/16 [History] Metoprolol [Lopressor] 50 mg PO BID 08/21/16 [History] Multivitamin [Multi-Day Vitamins] 1 tab PO DAILY 08/21/16 [History] Docusate [Colace] 100 mg PO BID PRN #60 capsule 12/18/16 [Rx] Diltiazem CD (24hr) [Cardizem CD] 180 mg PO DAILY 01/08/17 [History] Apixaban [Eliquis] 2.5 mg PO BID #60 tablet 01/26/17 [Rx] Ferrous Sulfate [Iron] 325 mg PO DAILY 03/09/17 [History] Promethazine [Phenergan] 12.5 mg PO Q6HR PRN #30 tablet 05/11/17 [Rx] LORazepam [Ativan] 0.5 mg PO BID PRN #30 tablet 06/01/17 [Rx] Citalopram Hydrobromide [Citalopram HBr] 40 mg PO DAILY 06/08/17 [History] 3 Allergy/AdvReac Type Severity Reaction Status Date / Time No Known Allergies Allergy Verified 03/09/17 11:13 All Systems PM: A 10-system review of systems was performed and is negative for pertinent findings except as documented above in the HPI. - Constitutional Constitutional: no chills, no fever(s), no night sweats - EENT Eyes: no change in vision, no discharge, no pain, no photophobia Ears: no ear discharge, no ear pain, no tinnitus Nose, mouth and throat: no dysphagia, no nasal discharge, no neck pain, no sore throat - Cardiovascular Cardiovascular ROS IM: no chest pain, no diaphoresis, no dyspnea, no lightheadedness, no palpitations, no syncope - Respiratory Respiratory: no cough, no dyspnea, no wheezing, no excessive phlegm production - Gastrointestinal Gastrointestinal: abdominal pain, diarrhea, nausea, vomiting, no hematemesis, no hematochezia, no melena - Genitourinary Genitourinary: no change in urinary stream, no dysuria, no flank pain, no hematuria - Musculoskeletal Musculoskeletal ROS IM: no numbness, no tingling - Integumentary Integumentary IM: no rash, no unusual bruising - Neurological Neurological ROS: no confusion, no convulsions, no focal weakness, no numbness, no tingling, no tremor(s) - Hematologic/Lymphatic Hematologic/Lymphatic: no easy bruising - Constitutional Vitals: Temp Pulse Resp BP Pulse Ox 99.2 F 66 12 146/84 92 06/08/17 23:29 06/08/17 23:29 06/08/17 23:29 06/08/17 23:29 06/08/17 23:29 General appearance: Present: A&O X 3, no acute distress, answers questions appropriately - Head Head exam: Present: atraumatic, normocephalic - Eye Eye exam: Present: PERRL, conjuntiva pink, sclera anicteric Pupils: Present: PERRL - Neck Neck exam general surgery: Present: supple, trachea midline. Absent: lymphadenopathy - Respiratory Respiratory exam: Present: CTAB. Absent: accessory muscle use, rales, rhonchi, wheezes - Cardiovascular Cardiovascular exam: Present: RRR, +S1, +S2. Absent: diastolic murmur, gallop, rubs, systolic murmur - GI/Abdominal GI/Abdominal exam: Present: diminished bowel sounds, normal bowel sounds, soft, tenderness, no peritoneal signs. Absent: distended Additional comments: Suprapubic tenderness right flank and right CVA significant tenderness - Extremities Exam Extremities exam: Present: warm, radial pulses palpable and symmetrical. Absent : calf tenderness, cyanotic, pedal edema - Neurological Exam Neurological exam: Present: CN II-XII intact, oriented X3, no focal deficits. Absent: pronater drift, facial droop, speech deficit - Skin Skin exam: Present: dry, intact Internal Med - H&P Results - Labs CBC & Chem 7: 06/08/17 14:07 06/08/17 14:07
[2017-06-09 01:35] LABS: Basophils % 0.2 %; Eosinophils % 0.4 %; Hematocrit 27.4 % (35.3-44.9); Immature Granulocytes % 0.4 % (0-4)
[2017-06-09 01:37] LABS: Hemoglobin 8.7 g/dL (11.5-15.4); Immature Platelets 6.9 % (1.1-6.1); Lymphocytes # 0.5 K/mcL (0.6-4.6); Lymphocytes % 8.9 %; Mean Corpuscular HGB Conc 31.8 g/dL (31.6-35.5); Mean Corpuscular Hemoglobin 31.3 pg (28.0-33.3); Mean Corpuscular Volume 98.6 fL (83.0-100.0); Mean Platelet Volume 11.2 fL (9.4-12.4); Monocytes # 0.4 K/mcL (0.0-1.3); Monocytes % 6.7 %; Neutrophils # 4.5 K/mcL (1.6-8.9); Platelet Count 106 K/mcL (140-400); Red Blood Count 2.78 M/mcL (3.82-4.97); Red Cell Distribution Width 16.6 % (11.5-14.5); Segmented Neutrophils % 83.4 %
[2017-06-09 01:51] LABS: Albumin 2.5 g/dL (3.5-5.0); Albumin/Globulin Ratio 0.6 (1.1-2.2); Bilirubin,Total 0.3 mg/dL (0.2-1.2); Globulin 3.9 g/dL (2.4-3.5); Potassium 3.6 mEq/L (3.5-4.5); Total Protein 6.4 g/dL (6.0-8.3)
[2017-06-09] MEDS: APIXABAN 5 MG TABLET PO SCH ×2 (01:53→08:21)
[2017-06-09] MEDS: 0.9 % Sodium Chloride 1,000 ML IVC SCH ×2 (01:58→16:31)
[2017-06-09] MEDS: *HR* Morphine 2 MG/ML SYRINGE IVP PRN ×3 (02:01→13:34)
[2017-06-09 03:02] LABS: Magnesium 1.7 mg/dL (1.6-2.6)
[2017-06-09] MEDS: Ipratropium/Albuterol Neb 3 ML IH SCH ×4 (04:01→23:10)
--- NOTE | 2017-06-09 08:17 | Urology - Consult Note ---
Date of Encounter: 06/09/17 Time of Encounter: 08:15 - Assessment and Plan (1) Hydronephrosis Current Visit: Yes Status: Acute Assessment and plan: I had a long conversation with the patient regarding her bladder cancer. We discussed that the bladder cancer is incurable and nonresectable. It appears the immunotherapy may not be controlling the malignancy based on recent pelvic lymphadenopathy. She understands that she has a poor prognosis. The right hydronephrosis is not unexpected. Likely obstruction from radiation changes or bladder cancer. Could consider nephrostomy tube for 2 reasons. #1 will preserve renal function. #2 she has vesicovaginal fistulas and incontinence. Diversion of the urine away from the pelvis may provide better quality of life. okay to wait until Sunday. Hold anticoagulation for now. No indication for cystoscopy and stent placement. Patient may consider withdrawing aggressive management and not placing the nephrostomy tube I recommend a medical oncology consult and possibly palliative care. Patient may need to start considering hospice therapy. Qualifiers: Hydronephrosis type: unspecified Qualified Code(s): N13.30 - Unspecified hydronephrosis Urology CN:HPI Consult date: 06/09/17 Reason for consult Urology: Hydronephrosis History of present illness: Patient well-known to the urology service. Unresectable T4 bladder cancer. Recent CT scan shows increasing pelvic lymphadenopathy. Right hydronephrosis. Dr. Villalba was unable to place bilateral ureteral stents at the last cystoscopy. She has a left nephrostomy tube in place. Creatinine has increased from normal to 1.13. She has significant fatigue and weakness. Significant pelvic and back pain. Past Med Surg Social Fam HX - Past Medical History Medical history: atrial fibrillation, cancer, COPD, DVT, GERD, hypertension Psychiatric history: anxiety, depression - Past Surgical History Surgical History: other - Social History Smoking Status: Current every day smoker Packs per day: 1/2 PPD Smokeless Tobacco Status: No Alcohol use: none Drug use: none - Family History Mother Living Status: Still Living Hx Family Cardiac Disorders: Yes (HTN) Hx Family Cancer: Yes (non-hodgkins lymphoma) Hx Family Neurologic Disorders: Yes (dementia) Medications and Allergies Atorvastatin [Lipitor] 40 mg PO HS 08/21/16 [History] Lactobacillus Combo No.10 [Probiotic] 1 cap PO HS 08/21/16 [History] Metoprolol [Lopressor] 50 mg PO BID 08/21/16 [History] Multivitamin [Multi-Day Vitamins] 1 tab PO DAILY 08/21/16 [History] Docusate [Colace] 100 mg PO BID PRN #60 capsule 12/18/16 [Rx] Diltiazem CD (24hr) [Cardizem CD] 180 mg PO DAILY 01/08/17 [History] Apixaban [Eliquis] 2.5 mg PO BID #60 tablet 01/26/17 [Rx] Ferrous Sulfate [Iron] 325 mg PO DAILY 03/09/17 [History] Promethazine [Phenergan] 12.5 mg PO Q6HR PRN #30 tablet 05/11/17 [Rx] LORazepam [Ativan] 0.5 mg PO BID PRN #30 tablet 06/01/17 [Rx] Citalopram Hydrobromide [Citalopram HBr] 40 mg PO DAILY 06/08/17 [History] 3 Allergy/AdvReac Type Severity Reaction Status Date / Time No Known Allergies Allergy Verified 03/09/17 11:13 Review of Systems - Constitutional fatigue, weakness, no chills, no fever(s) - EENT Nose, mouth and throat: dizziness - Cardiovascular no chest pain - Respiratory no cough - Gastrointestinal abdominal pain, nausea - Musculoskeletal back pain - Integumentary no erythema - Neurological confusion - Psychiatric anxiety - Hematologic/Lymphatic no easy bleeding - Allergic/Immunologic no throat swelling Exam Initial Vital Signs Temp Pulse Resp BP Pulse Ox 100.5 F H 70 18 116/52 97 06/08/17 13:39 06/08/17 13:39 06/08/17 13:39 06/08/17 13:39 06/08/17 13:39 - General physical appearance Present: no distress, chronically ill - Eyes Present: PERRL - ENT Present: normal nares - Neck Present: no masses - Respiratory Present: normal respiratory effort - Cardiovascular Cardiovascular exam IM: RRR - Abdomen Abdomen: Present: soft, tender, suprapubic tenderness - Integumentary Present: no rash - Neurologic Present: normal coordination. Absent: disoriented, confused Urology Results - Labs 06/09/17 01:27 06/09/17 01:27 Abnormal lab results RBC 2.78 M/mcL (3.82-4.97) L 06/09/17 01:27 Hgb 8.7 g/dL (11.5-15.4) L 06/09/17 01:27 Hct 27.4 % (35.3-44.9) L 06/09/17 01:27 RDW 16.6 % (11.5-14.5) H 06/09/17 01:27 Plt Count 106 K/mcL (140-400) L 06/09/17 01:27 Lymphocytes # 0.5 K/mcL (0.6-4.6) L 06/09/17 01:27 Immature Plt Fraction 6.9 % (1.1-6.1) H 06/09/17 01:27 BUN 24 mg/dL (7-20) H 06/09/17 01:27 Creatinine 1.13 mg/dL (0.57-1.11) H 06/09/17 01:27 Est GFR ( Amer) 59 (> 60) L 06/09/17 01:27 Est GFR (Non-Af Amer) 48 (> 60) L 06/09/17 01:27 Glucose 104 mg/dL (70-99) H 06/09/17 01:27 Albumin 2.5 g/dL (3.5-5.0) L 06/09/17 01:27 Globulin 3.9 g/dL (2.4-3.5) H 06/09/17 01:27 Albumin/Globulin Ratio 0.6 (1.1-2.2) L 06/09/17 01:27 Ur Specimen Adequacy See below A 06/08/17 17:39 Urine Clarity Turbid (Clear) A 06/08/17 17:39 Ur Specific [place] > 1.030 (1.010-1.025) H 06/08/17 17:39 Urine Protein 100 mg/dL (Neg-Trace) H 06/08/17 17:39 Urine Blood Small (Negative) H 06/08/17 17:39 Urine Nitrite Positive (Negative) A 06/08/17 17:39 Ur Leukocyte Esterase Moderate (Negative) H 06/08/17 17:39 Urine Microscopic RBC 3-5 per hpf (0-3) H 06/08/17 17:39 Urine Microscopic WBC TNTC per hpf (0-3) H 06/08/17 17:39 Ur Squamous Epith Cells Moderate per lpf (None-Few) H 06/08/17 17:39 Urine Bacteria Moderate per hpf (None-Few) H 06/08/17 17:39 Ur Culture Indicated? YES (NO) A 06/08/17 17:39 Diabetes panel 06/09/17 Range/Units 01:27 Sodium 138 (136-145) mEq/L Potassium 3.6 (3.5-4.5) mEq/L Chloride 108 (98-109) mEq/L Carbon Dioxide 23 (19-29) mEq/L BUN 24 H (7-20) mg/dL Creatinine 1.13 H (0.57-1.11) mg/dL Glucose 104 H (70-99) mg/dL Calcium 9.0 (8.6-10.8) mg/dL AST 17 (5-34) Units/L ALT 16 (0-55) Units/L Alkaline Phosphatase 111 (38-126) Units/L Albumin 2.5 L (3.5-5.0) g/dL Calcium panel 06/09/17 Range/Units 01:27 Calcium 9.0 (8.6-10.8) mg/dL Albumin 2.5 L (3.5-5.0) g/dL Pituitary panel 06/09/17 Range/Units 01:27 Sodium 138 (136-145) mEq/L Potassium 3.6 (3.5-4.5) mEq/L Chloride 108 (98-109) mEq/L Carbon Dioxide 23 (19-29) mEq/L BUN 24 H (7-20) mg/dL Creatinine 1.13 H (0.57-1.11) mg/dL Glucose 104 H (70-99) mg/dL Calcium 9.0 (8.6-10.8) mg/dL Adrenal panel 06/09/17 Range/Units 01:27 Sodium 138 (136-145) mEq/L Potassium 3.6 (3.5-4.5) mEq/L Chloride 108 (98-109) mEq/L Carbon Dioxide 23 (19-29) mEq/L BUN 24 H (7-20) mg/dL Creatinine 1.13 H (0.57-1.11) mg/dL Glucose 104 H (70-99) mg/dL Calcium 9.0 (8.6-10.8) mg/dL Total Bilirubin 0.3 (0.2-1.2) mg/dL AST 17 (5-34) Units/L ALT 16 (0-55) Units/L Alkaline Phosphatase 111 (38-126) Units/L Albumin 2.5 L (3.5-5.0) g/dL All other labs normal. Consult Discharge Plan - Plan Referrals: Arnold Calhoun DO [Primary Care Provider] -
[2017-06-09] MEDS: Multivit/Ca/Min/Fe/FA 1 TAB TABLET PO SCH (08:21)
[2017-06-09] MEDS: Diltiazem CD (24hr) 180 MG CAPSULE PO SCH (08:21)
[2017-06-09] MEDS: *HR* HYDROcodone/Acet 5/325 mg TABLET PO PRN ×4 (08:25→22:00)
[2017-06-09] MEDS: Piperacillin/Tazobactam 3.375 GM/200 ML BAG IVPB SCH ×2 (08:27→16:30)
--- NOTE | 2017-06-09 14:04 | Internal Med Progress Note ---
Date of Encounter: 06/09/17 Time of Encounter: 09:00 - Assessment and plan (1) Bladder tumor Current Visit: No Status: Acute Assessment and plan: Urology consulted, nonresctable. Will also consult oncology. (2) Atrial fibrillation and flutter Current Visit: Yes Status: Chronic (3) COPD (chronic obstructive pulmonary disease) Current Visit: Yes Status: Chronic Assessment and plan: Stable, no signs of exacerbation. Continue Home medications Qualifiers: COPD type: chronic bronchitis Chronic bronchitis type: unspecified Qualified Code(s): J42 - Unspecified chronic bronchitis (4) Hydronephrosis Current Visit: Yes Status: Chronic Assessment and plan: Due to bladder cancer. Plan for nephrostomy tube on the right side by interventional radiology on Sunday. Qualifiers: Hydronephrosis type: other Qualified Code(s): N13.39 - Other hydronephrosis (5) UTI (urinary tract infection) Current Visit: Yes Status: Suspected Assessment and plan: We will continue Zosyn. Follow up urine culture results. Qualifiers: Urinary tract infection type: site unspecified Hematuria presence: without hematuria Qualified Code(s): N39.0 - Urinary tract infection, site not specified - Time Spent With Patient 25 - 35 minutes - Subjective Interval history: Patient was seen and examined. Complained of low back pain and whole body ache. No fever. Vitals are stable. Urology consult appreciated. Will consider nephrostomy for hydronephrosis on Sunday by interventional radiologist. We will hold Eliquis at this point. Placed heparin subcutaneous start from tomorrow morning for DVT prophylaxis. Continue Zosyn for UTI - Constitutional Vitals: Temp Pulse Resp BP Pulse Ox 98.1 F 53 18 96/55 94 06/09/17 11:15 06/09/17 11:15 06/09/17 11:32 06/09/17 11:15 06/09/17 11:32 General appearance: Present: A&O X 3, no acute distress, answers questions appropriately - Head Head exam: Present: atraumatic, normocephalic - Eye Eye exam: Present: PERRL, conjuntiva pink, sclera anicteric Pupils: Present: PERRL - Neck Neck exam general surgery: Present: supple, trachea midline. Absent: lymphadenopathy - Respiratory Respiratory exam: Present: CTAB. Absent: accessory muscle use, rales, rhonchi, wheezes - Cardiovascular Cardiovascular exam: Present: RRR, +S1, +S2. Absent: diastolic murmur, gallop, rubs, systolic murmur - GI/Abdominal GI/Abdominal exam: Present: normal bowel sounds, soft, no peritoneal signs. Absent: distended, tenderness Additional comments: Left nephrostomy tube in place - Extremities Exam Extremities exam: Present: warm, radial pulses palpable and symmetrical. Absent : calf tenderness, cyanotic, pedal edema - Neurological Exam Neurological exam: Present: CN II-XII intact, oriented X3, no focal deficits. Absent: pronater drift, facial droop, speech deficit - Skin Skin exam: Present: dry, intact Internal Medicine: Result - Labs CBC & Chem 7: 06/09/17 01:27 06/09/17 01:27 Labs: Short CBC 06/09/17 Range/Units 01:27 WBC 5.4 (4.3-11.1) K/mcL Hgb 8.7 L (11.5-15.4) g/dL Hct 27.4 L (35.3-44.9) % Plt Count 106 L (140-400) K/mcL Neutrophils # 4.5 (1.6-8.9) K/mcL BMP 06/09/17 01:27 Sodium 138 Potassium 3.6 Chloride 108 Carbon Dioxide 23 BUN 24 H Creatinine 1.13 H Glucose 104 H Calcium 9.0 Cardiac Enzymes 06/09/17 06/09/17 Range/Units 01:27 06:58 Troponin I 0.01 0.02 (0-0.03) ng/mL Liver Function 06/09/17 Range/Units 01:27 Total Bilirubin 0.3 (0.2-1.2) mg/dL AST 17 (5-34) Units/L ALT 16 (0-55) Units/L Alkaline Phosphatase 111 (38-126) Units/L Albumin 2.5 L (3.5-5.0) g/dL Consult Discharge Plan - Plan Referrals: Arnold Calhoun DO [Primary Care Provider] -
--- NOTE | 2017-06-09 15:48 | Oncology Inp Consult Note ---
Date of Encounter: 06/11/17 Time of Encounter: 15:44 Assessment and Plan (1) Bladder tumor Status: Acute Assessment and plan: Locally advanced muscle invasive bladder cancer T4 unresectable bladder [facility] CT abdomen and pelvis 06/08/2017 showed new retroperitoneal adenopathy largest aortocaval 1.5 cm. This may be concerning for disease progression She did not have good benefit to chemotherapy which she had only a few doses as mentioned i She was started on immunotherapy Pembrolizumab and received only one dose on at 200 mg IV. Treatment is scheduled every 3 weeks. Immunotherapy may not have enough time to work She has developed right hydronephrosis. Urology consult Dr. Wheeler noted. Agree with percutaneous nephrostomy. She also appears to have vesicovaginal fistula and nephrostomy tube should help line she had right PCN and exchange of left PCN tube done by interventional radiology on 06/11/2017 (2) Anemia Status: Chronic Assessment and plan: Likely aggravated by chemotherapy. We will do anemia workup. She also has borderline renal insufficiency current creatinine 1.1. Percutaneous nephrostomy may improve renal insufficiency Qualifiers: Anemia type: iron deficiency Iron deficiency anemia type: chronic blood loss Qualified Code(s): D50.0 - Iron deficiency anemia secondary to blood loss (chronic) (3) UTI (urinary tract infection) Status: Suspected Assessment and plan: Currently on Zosyn. Urine cultures grew ESBL. She was switched to ertapenem and she is sensitive to both antibiotics Qualifiers: Urinary tract infection type: acute cystitis Hematuria presence: without hematuria Qualified Code(s): N30.00 - Acute cystitis without hematuria (4) DVT (deep venous thrombosis) Status: Chronic Assessment and plan: History of DVT on Elequis 2.5 mg by mouth twice a day. Hold Elequis for now as recommended by Dr. Wheeler Qualifiers: DVT location: lower extremity Affected thrombotic vein of extremity: unspecified vein of extremity Chronicity: chronic Laterality: unspecified laterality Qualified Code(s): I82.509 - Chronic embolism and thrombosis of unspecified deep veins of unspecified lower extremity - Data of Consult Patient: known to practice within the last 3 years Requesting Physician: Cori Almazan MD Primary Care Provider: Arnold Calhoun, DO - Consult Narrative Reason for consult: Muscle invasive bladder cancer and anemia History of present illness: Ms. Felton is a 66 year old female Oncological history Patient of Dr. ZELAYA at [facility] Bladder cancer--unresectable on palliative treatment Ms. Felton is a 66 year old female with history of atrial fibrillation requiring anticoagulation history of ablation in 2008 and cardioversion by records in 2014, Her bladder tumour diagnosed initially by Dr. Villalba and patient underwent transurethral resection of bladder tumor in August 2016 tumor extended around the bladder neck measuring 2.5 cm necrotic seems muscle invasive and adherent to the pubic bone on bimanual exam mass was palpable in the anterior aspect of the vagina and fixed. 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 A bone scan did not show any evidence of metastatic disease done in August [address] scan of the abdomen and pelvis in July 2016 wo contrast and inguinal lymph nodes. Patient was seen by urology at the [facility] October 17 2016, by Dr. Kelly, (she also has a history of cervical cancer treated with chemotherapy radiation and a total abdominal hysterectomy bilateral salphingo oophorectomy in the s). She was recommended neoadjuvant chemotherapy and evaluate radiologically before determining the role of radical cystectomy due to cT4 disease. . PET scan in October 2016 that did not show any metastatic disease, prior to beginning chemotherapy. She was started on carboplatin (renal insufficiency)/Gemzar---11/15. She had a PET imaging which again does not show any metabolic activity consistent with mets. MRI pelvis 01/15--nodular wall thickening and enhancement are noted predominately along the bladder dome measuring 4.8 x 2.6 cm, compatible with known bladder cancer. MAss closely abuts the vagina Chemo resumed with cisplatin/gemzar on 03/29/17. She had only 3 doses of cisplatin at 35 mg/m or doses of Gemzar. Last dose 05/01/2017 She underwent further imaging 04/16/2017 that shows a mass involving the right pelvic floor musculature measuring 2.3 x 3.1 x 2.1 cm posterior competent of the mass within the bladder but not obviously invading the rectum measuring 2.9 x 4.1 cm in size anterior competent of the mass extending into the pre-pubic measuring 2.4 x 4.4 cm in size. The comparison to MRI from December 2016 is limited possible enlargement, she had decrease in size of inguinal lymphadenopathy which previously was not PET positive. CT scan of the chest imaging does not show any metastatic disease. She has mild emphysema and pulmonary hypertension. Patient was reevaluated by surgery at [place] [id number], she was found to be unresectable bladder tumor, adherent to surrounding structures, she had also developed a fistula between bladder and vagina. Satrted keytruda----06/01/17 Hematological history Right gastrocnemius acute DVT September 2016 on Elequis Anemia since August 2016. Hemoglobin 10 range. Prior to that it was around 12. Currently hemoglobin dropped further to 8.7 Past Med Surg Social Fam HX - Past Medical History Medical history: atrial fibrillation, cancer, COPD, DVT, GERD, hypertension Psychiatric history: anxiety, depression - Past Surgical History Surgical History: other - Social History Smoking Status: Current every day smoker Packs per day: 1/2 PPD Smokeless Tobacco Status: No Alcohol use: none Drug use: none - Family History Mother Living Status: Still Living Hx Family Cardiac Disorders: Yes (HTN) Hx Family Cancer: Yes (non-hodgkins lymphoma) Hx Family Neurologic Disorders: Yes (dementia) Medications and Allergies Atorvastatin [Lipitor] 40 mg PO HS 08/21/16 [History] Lactobacillus Combo No.10 [Probiotic] 1 cap PO HS 08/21/16 [History] Metoprolol [Lopressor] 50 mg PO BID 08/21/16 [History] Multivitamin [Multi-Day Vitamins] 1 tab PO DAILY 08/21/16 [History] Docusate [Colace] 100 mg PO BID PRN #60 capsule 12/18/16 [Rx] Diltiazem CD (24hr) [Cardizem CD] 180 mg PO DAILY 01/08/17 [History] Apixaban [Eliquis] 2.5 mg PO BID #60 tablet 01/26/17 [Rx] Ferrous Sulfate [Iron] 325 mg PO DAILY 03/09/17 [History] Promethazine [Phenergan] 12.5 mg PO Q6HR PRN #30 tablet 05/11/17 [Rx] LORazepam [Ativan] 0.5 mg PO BID PRN #30 tablet 06/01/17 [Rx] Citalopram Hydrobromide [Citalopram HBr] 40 mg PO DAILY 06/08/17 [History] 3 Allergy/AdvReac Type Severity Reaction Status Date / Time No Known Allergies Allergy Verified 03/09/17 11:13 Oncology - Exam - Constitutional Vitals: Temp Pulse Resp BP Pulse Ox 99.0 F 68 18 108/63 91 06/09/17 14:55 06/09/17 14:55 06/09/17 14:55 06/09/17 14:55 06/09/17 14:55 Exam: GENERAL: Alert and oriented, well appearing. Mental Status: Affect appropriate for circumstances HEENT: Sclerae anicteric. No mucositis or thrush. No other oral or pharyngeal lesions or erythema. Skin: No rashes or petechiae. No evidence of skin malignancy Lymph nodes: No cervical, supraclavicular, axillary, or inguinal adenopathy. Lungs: Air entry normal with normal breath sounds. No rhonchi or wheezing Cardiovascular: Regular rate and rhythm. No skipped beats Abdomen: Soft, nontender; no organomegaly or masses palpable. Extremities: No edema. No calf swelling or tenderness. No joint deformity. Neurologic: Alert, cranial nerves II-XII intact; normal gait; no focal weakness or sensory abnormalities Oncology - Results Labs: Short CBC 06/09/17 Range/Units 01:27 WBC 5.4 (4.3-11.1) K/mcL Hgb 8.7 L (11.5-15.4) g/dL Hct 27.4 L (35.3-44.9) % Plt Count 106 L (140-400) K/mcL Neutrophils # 4.5 (1.6-8.9) K/mcL BMP 06/09/17 01:27 Sodium 138 Potassium 3.6 Chloride 108 Carbon Dioxide 23 BUN 24 H Creatinine 1.13 H Glucose 104 H Calcium 9.0 Cardiac Enzymes 06/09/17 06/09/17 06/09/17 Range/Units 01:27 06:58 13:34 Troponin I 0.01 0.02 0.02 (0-0.03) ng/mL Liver Function 06/09/17 Range/Units 01:27 Total Bilirubin 0.3 (0.2-1.2) mg/dL AST 17 (5-34) Units/L ALT 16 (0-55) Units/L Alkaline Phosphatase 111 (38-126) Units/L Albumin 2.5 L (3.5-5.0) g/dL Consult Discharge Plan - Plan Referrals: Arnold Calhoun DO [Primary Care Provider] -
[2017-06-09 17:49] LABS: Folate 17.2 ng/mL (7.0-31.4)
[2017-06-09 18:21] LABS: Thyroid Stimulating Hormone 0.927 mcIU/mL (0.350-4.840)
[2017-06-09] MEDS: Lactobacillus 1 EACH CAP.SPRINK PO SCH (22:00)
[2017-06-10] MEDS: *HR* Morphine 2 MG/ML SYRINGE IVP PRN ×4 (00:27→21:00)
[2017-06-10] MEDS: Piperacillin/Tazobactam 3.375 GM/200 ML BAG IVPB SCH ×3 (00:28→16:35)
[2017-06-10] MEDS: 0.9 % Sodium Chloride 1,000 ML IVC SCH ×2 (04:08→16:36)
[2017-06-10 05:05] LABS: Basophils % 0.2 %; Eosinophils % 0.3 %; Lymphocytes % 12.6 %; Red Cell Distribution Width 16.7 % (11.5-14.5)
[2017-06-10 05:06] LABS: Hematocrit 24.3 % (35.3-44.9); Hemoglobin 7.5 g/dL (11.5-15.4); Immature Granulocytes % 0.6 % (0-4); Immature Platelets 9.2 % (1.1-6.1); Mean Corpuscular HGB Conc 30.9 g/dL (31.6-35.5); Mean Corpuscular Hemoglobin 30.9 pg (28.0-33.3); Mean Platelet Volume 12.1 fL (9.4-12.4); Monocytes % 8.9 %; Red Blood Count 2.43 M/mcL (3.82-4.97); Segmented Neutrophils % 77.4 %
[2017-06-10 05:07] LABS: Lymphocytes # 0.8 K/mcL (0.6-4.6); Monocytes # 0.6 K/mcL (0.0-1.3)
[2017-06-10 05:08] LABS: Platelet Count 98 K/mcL (140-400)
[2017-06-10 05:13] LABS: Alanine Aminotransferase 22 Units/L (0-55); Albumin 2.1 g/dL (3.5-5.0); Albumin/Globulin Ratio 0.6 (1.1-2.2); Alkaline Phosphatase 128 Units/L (38-126); Aspartate Amino Transferase 28 Units/L (5-34); BUN/Creatinine Ratio 14 (6-26); Bilirubin,Total 0.4 mg/dL (0.2-1.2); Blood Urea Nitrogen 15 mg/dL (7-20); Calcium 8.4 mg/dL (8.6-10.8); Carbon Dioxide 21 mEq/L (19-29); Chloride 110 mEq/L (98-109); Globulin 3.4 g/dL (2.4-3.5); Glucose 112 mg/dL (70-99); Magnesium 1.6 mg/dL (1.6-2.6); Osmolality,Calculated 288 (280-300); Potassium 3.4 mEq/L (3.5-4.5); Sodium 138 mEq/L (136-145); Total Protein 5.5 g/dL (6.0-8.3); eGFR For African Americans > 60 (> 60); eGFR For Non-African Americans 52 (> 60)
[2017-06-10] MEDS: Ipratropium/Albuterol Neb 3 ML IH SCH ×4 (05:35→22:40)
[2017-06-10] MEDS: *HR* HYDROcodone/Acet 5/325 mg TABLET PO PRN ×3 (06:02→16:32)
[2017-06-10] MEDS: *HR* Heparin 5,000 UNIT/ML VIAL SQ SCH ×2 (06:02→16:33)
[2017-06-10] MEDS: Multivit/Ca/Min/Fe/FA 1 TAB TABLET PO SCH (08:47)
[2017-06-10] MEDS: Diltiazem CD (24hr) 180 MG CAPSULE PO SCH (08:48)
--- NOTE | 2017-06-10 15:45 | Internal Med Progress Note ---
Date of Encounter: 06/10/17 Time of Encounter: 09:00 - Assessment and plan (1) Bladder tumor Current Visit: No Status: Acute Assessment and plan: Urology consulted, nonresctable. Oncology consult appreciated. (2) Atrial fibrillation and flutter Current Visit: Yes Status: Chronic Assessment and plan: Heart rate is well controlled. Patient keeps NSR now. On Eliquis for anticoagulation, on hold now for nephrostomy tomorrow. (3) COPD (chronic obstructive pulmonary disease) Current Visit: Yes Status: Chronic Assessment and plan: Stable, no signs of exacerbation. Continue Home medications Qualifiers: COPD type: chronic bronchitis Chronic bronchitis type: unspecified Qualified Code(s): J42 - Unspecified chronic bronchitis (4) Hydronephrosis Current Visit: Yes Status: Chronic Assessment and plan: Due to bladder cancer. Plan for nephrostomy tube on the right side by interventional radiology on Sunday. Qualifiers: Hydronephrosis type: other Qualified Code(s): N13.39 - Other hydronephrosis (5) UTI (urinary tract infection) Current Visit: Yes Status: Suspected Assessment and plan: We will continue Zosyn. Follow up urine culture results. Preliminary urine culture result shows gram-negative rods 2. Previous culture result shows Morganella morganii sensitive to Zosyn. Qualifiers: Urinary tract infection type: site unspecified Hematuria presence: without hematuria Qualified Code(s): N39.0 - Urinary tract infection, site not specified - Time Spent With Patient 25 - 35 minutes - Subjective Interval history: Patient was seen and examined. Complained of low back pain and whole body ache , improved today. No fever. Vitals are stable. Urology consult appreciated. Will consider nephrostomy for hydronephrosis on Sunday by interventional radiologist. We will hold Eliquis at this point. Continue Zosyn for UTI. Oncology consult appreciated. - Constitutional Vitals: Temp Pulse Resp BP Pulse Ox 98.8 F 67 18 100/58 98 06/10/17 10:47 06/10/17 10:47 06/10/17 10:47 06/10/17 10:47 06/10/17 10:47 General appearance: Present: A&O X 3, no acute distress, answers questions appropriately - Head Head exam: Present: atraumatic, normocephalic - Eye Eye exam: Present: PERRL, conjuntiva pink, sclera anicteric Pupils: Present: PERRL - Neck Neck exam general surgery: Present: supple, trachea midline. Absent: lymphadenopathy - Respiratory Respiratory exam: Present: CTAB. Absent: accessory muscle use, rales, rhonchi, wheezes - Cardiovascular Cardiovascular exam: Present: RRR, +S1, +S2. Absent: diastolic murmur, gallop, rubs, systolic murmur - GI/Abdominal GI/Abdominal exam: Present: normal bowel sounds, soft, no peritoneal signs. Absent: distended, tenderness Additional comments: Left side nephrostomy tube in place - Extremities Exam Extremities exam: Present: warm, radial pulses palpable and symmetrical. Absent : calf tenderness, cyanotic, pedal edema - Neurological Exam Neurological exam: Present: CN II-XII intact, oriented X3, no focal deficits. Absent: pronater drift, facial droop, speech deficit - Skin Skin exam: Present: dry, intact Internal Medicine: Result - Labs CBC & Chem 7: 06/10/17 04:15 06/10/17 04:15 Labs: Short CBC 06/10/17 Range/Units 04:15 WBC 6.4 (4.3-11.1) K/mcL Hgb 7.5 L (11.5-15.4) g/dL Hct 24.3 L (35.3-44.9) % Plt Count 98 L (140-400) K/mcL Neutrophils # 5.0 (1.6-8.9) K/mcL BMP 06/10/17 04:15 Sodium 138 Potassium 3.4 L Chloride 110 H Carbon Dioxide 21 BUN 15 Creatinine 1.06 Glucose 112 H Calcium 8.4 L Liver Function 06/10/17 Range/Units 04:15 Total Bilirubin 0.4 (0.2-1.2) mg/dL AST 28 (5-34) Units/L ALT 22 (0-55) Units/L Alkaline Phosphatase 128 H (38-126) Units/L Albumin 2.1 L (3.5-5.0) g/dL Consult Discharge Plan - Plan Referrals: Arnold Calhoun DO [Primary Care Provider] -
--- NOTE | 2017-06-10 16:44 | Event Note ---
Date of Encounter: 06/10/17 Time of Encounter: 16:35 Called by RN pt wants to discuss CODE STATUS with me. Discussed with patient at bedside. Patient said she does not want resuscitation if cardiac arrest happens. She still wants nephrostomy tube to be done. She still wants antibiotics. She can accept intubation if respiratory failure occurs. Will place patient on DNR CCA.
[2017-06-10] MEDS: Lactobacillus 1 EACH CAP.SPRINK PO SCH (21:00)
[2017-06-11] MEDS: Piperacillin/Tazobactam 3.375 GM/200 ML BAG IVPB SCH ×2 (00:05→07:54)
[2017-06-11] MEDS: *HR* HYDROcodone/Acet 5/325 mg TABLET PO PRN ×2 (00:08→16:11)
[2017-06-11] MEDS: *HR* Morphine 2 MG/ML SYRINGE IVP PRN ×2 (04:05→21:13)
[2017-06-11] MEDS: 0.9 % Sodium Chloride 1,000 ML IVC SCH (04:10)
[2017-06-11] MEDS: Ipratropium/Albuterol Neb 3 ML IH SCH ×4 (04:32→22:30)
[2017-06-11 05:57] LABS: Basophils % 0.2 %; Eosinophils # 0.1 K/mcL (0.0-0.6); Eosinophils % 0.8 %; Hematocrit 28.3 % (35.3-44.9); Hemoglobin 8.9 g/dL (11.5-15.4); Immature Granulocytes % 0.6 % (0-4); Lymphocytes # 0.9 K/mcL (0.6-4.6); Lymphocytes % 13.9 %; Mean Corpuscular HGB Conc 31.4 g/dL (31.6-35.5); Mean Corpuscular Hemoglobin 30.7 pg (28.0-33.3); Mean Corpuscular Volume 97.6 fL (83.0-100.0); Mean Platelet Volume 11.4 fL (9.4-12.4); Monocytes # 0.3 K/mcL (0.0-1.3); Neutrophils # 5.3 K/mcL (1.6-8.9); Platelet Count 116 K/mcL (140-400); Red Cell Distribution Width 16.7 % (11.5-14.5); Segmented Neutrophils % 80.5 %
[2017-06-11 06:03] LABS: INR 1.4; Prothrombin Time 14.7 Seconds (9.4-12.1)
[2017-06-11] MEDS: *HR* Heparin 5,000 UNIT/ML VIAL SQ SCH (06:03)
[2017-06-11 06:10] LABS: BUN/Creatinine Ratio 9 (6-26); Blood Urea Nitrogen 8 mg/dL (7-20); Calcium 8.3 mg/dL (8.6-10.8); Carbon Dioxide 19 mEq/L (19-29); Chloride 111 mEq/L (98-109); Glucose 95 mg/dL (70-99); Osmolality,Calculated 286 (280-300); Potassium 3.2 mEq/L (3.5-4.5); Sodium 139 mEq/L (136-145); eGFR For African Americans > 60 (> 60); eGFR For Non-African Americans > 60 (> 60)
[2017-06-11] MEDS: Multivit/Ca/Min/Fe/FA 1 TAB TABLET PO SCH (07:54)
[2017-06-11] MEDS: Diltiazem CD (24hr) 180 MG CAPSULE PO SCH (07:54)
[2017-06-11] MEDS ORDERED: 0.9 % Sodium Chloride 500 ML ONE ×2 (08:16→08:46)
[2017-06-11] MEDS ORDERED: *HR* Midazolam HCl 2 MG/2 ML VIAL IVP ONE (08:34)
[2017-06-11] MEDS ORDERED: *HR* FentaNYL (PF) 100 MCG/2 ML VIAL IVP ONE (08:35)
[2017-06-11] MEDS ORDERED: Potassium Chloride 40 MEQ, Lidocaine 1% 2 ML in D5% in Water 500 ML IVPB ONE (08:43)
--- NOTE | 2017-06-11 09:37 | Pre-Sedation Evaluation ---
Pre-sedation evaluation - Pre-sedation checklist Date of procedure: 06/11/17 Procedure: neph tube Recent Vitals: Last Vital Signs Temp 97.7 F 06/11/17 08:15 Pulse 54 06/11/17 09:27 Resp 22 06/11/17 09:27 BP 135/75 06/11/17 09:27 Pulse Ox 99 06/11/17 09:27 H&P (including ROS) documented in medical record: Yes Previous reaction to sedatives/anesthetics: No Dietary Status: NPO after Midnight Dentition: full dentition ASA Classification *see protocol: CLASS II-Mild systemic disease Plan of Care: Pt appropriate candidate for procedure/moderate/conscious sedation , Risks/benefits of procedure/sedation discussed w/ patient/family
--- NOTE | 2017-06-11 09:38 | IR Procedure Note ---
Date of procedure: 06/11/17 Consent Obtained: Written consent Timeout: Correct patient and procedure verified, Correct site verified, Time out performed, Skin prep completed Local anesthetic: Lidocaine 1% Indications: Bladder cancer with vesico-vaaginal fistula Procedure Performed: Right PCN and exchange left PCN Results/Findings: Rt 10 F PCN and exchange left 10f pcn Complications: None; Tolerated procedure well (Monitor on floor)
--- NOTE | 2017-06-11 14:39 | Palliative - Consult Note ---
Date of Encounter: 06/11/17 Time of Encounter: 14:30 - Assessment and Plan (1) Cancer associated pain Current Visit: Yes Status: Acute Assessment and plan: Continue with low dose IV Morphine, Has utilized x4 last 24 hours. She also has [place] ordered as well - has utilized x2. Would continue IV today as she is having some increased discomfort from tube placement and exchange. Could probably transition to po tomorrow, however, her home po dose is 10/325, so will need to increase po PRN dose. (2) Goals of care, counseling/discussion Current Visit: Yes Status: Acute Assessment and plan: Discussion with pt re: goals of care. She is unsure at this point if she wants to continue immunotherapy - desires to wait until she is home and can discuss with all her family. She lives with mother and is very close to her brother and niece. She also has 2 children that are estranged from her. Has no POA in place and we discussed the importance of this and who she would like for her decision maker, if she were not in a condition to make medical decisions for herself. She desires her brother, but wants to discuss with him prior to completing a POA. She confirms code status as DNRCC-A and ok with short term intubation for respiratory distress if needed. I did discuss hospice care at length, and that if she does decide she does not want to continue immunotherapy , the benefits hospice care at home could provide along with support for her family. She verbalized understanding. She will require home health for IV antibiotics on discharge and I d/w Drew Levin social work regarding this setup. Will f/u in am. Palliative-CN HPI - Data of Consult Consult date: 06/11/17 Requesting Physician: Cori Almazan MD Primary Care Provider: Arnold Calhoun, DO - Consult Narrative History of present illness: Ms. Felton is a 66 year old female with a history of bladder cancer, who presented with nausea/vomiting, suprapubic pain, and low grade fevers. She was found to have ESBL UTI and currently receiving IV antibiotics for treatment. Today, she also had right nephrostomy tube replaced, and had new placement of right nephrostomy tube. to preserve renal function. She also has vesicovaginal fistula and incontinence, which the nephrostomy tubes will assist with drainage Other medical history includes: atrial fibrillation, cancer, COPD , DVT, GERD, hypertension, anxiety, depression. She also has history of ovarian cancer and underwent total abdominal hyst in the past. She is treated at the [facility] under Dr. Phillips, and has been at the [facility] as well. Previous treatment was unsuccessful and she has began immunotherapy. Has received x1 thus far. Upon my visit, she is resting comfortably, and no family at bedside. States has had some discomfort from earlier procedure, but pain medication effective. Denies n/v, hungry and asking for food. CC: Cori Almazan MD Past Med Surg Social Fam HX - Past Medical History Medical history: atrial fibrillation, cancer, COPD, DVT, GERD, hypertension Psychiatric history: anxiety, depression - Past Surgical History Surgical History: other - Social History Smoking Status: Current every day smoker Packs per day: 1/2 PPD Smokeless Tobacco Status: No Alcohol use: none Drug use: none - Family History Mother Living Status: Still Living Hx Family Cardiac Disorders: Yes (HTN) Hx Family Cancer: Yes (non-hodgkins lymphoma) Hx Family Neurologic Disorders: Yes (dementia) Medications and Allergies Atorvastatin [Lipitor] 40 mg PO HS 08/21/16 [History] Lactobacillus Combo No.10 [Probiotic] 1 cap PO HS 08/21/16 [History] Metoprolol [Lopressor] 50 mg PO BID 08/21/16 [History] Multivitamin [Multi-Day Vitamins] 1 tab PO DAILY 08/21/16 [History] Docusate [Colace] 100 mg PO BID PRN #60 capsule 12/18/16 [Rx] Diltiazem CD (24hr) [Cardizem CD] 180 mg PO DAILY 01/08/17 [History] Apixaban [Eliquis] 2.5 mg PO BID #60 tablet 01/26/17 [Rx] Ferrous Sulfate [Iron] 325 mg PO DAILY 03/09/17 [History] Promethazine [Phenergan] 12.5 mg PO Q6HR PRN #30 tablet 05/11/17 [Rx] LORazepam [Ativan] 0.5 mg PO BID PRN #30 tablet 06/01/17 [Rx] Citalopram Hydrobromide [Citalopram HBr] 40 mg PO DAILY 06/08/17 [History] 3 Allergy/AdvReac Type Severity Reaction Status Date / Time No Known Allergies Allergy Verified 03/09/17 11:13 All systems: reviewed and no additional remarkable complaints except as stated ( flank pain, generalized weakness,) Palliative Care-Exam - Constitutional Vitals: Temp Pulse Resp BP Pulse Ox 98.2 F 56 16 113/64 93 06/11/17 12:05 06/11/17 12:05 06/11/17 12:05 06/11/17 12:05 06/11/17 12:05 General appearance: Present: average body habitus, no acute distress - Head Head Exam: Present: normal inspection, normocephalic - Respiratory Respiratory exam: Present: decreased breath sounds, CTAB - Cardiovascular Cardiovascular exam: Present: +S1, +S2 - GI/Abdominal Exam GI/Abdominal exam: Present: normal bowel sounds, soft - Additional comments: bilateral nephrostomy tubes. Right with pink tinged drainage, left straw colored. - Extremities Exam Extremities exam: Present: normal capillary refill, normal inspection - Neurological Exam Neurological exam: Present: alert, oriented X3, strengths equal and symetr throughout - Skin Skin exam: Present: dry, pallor, warm Internal Medicine - CN: Reslt - Labs CBC & Chem 7: 06/11/17 05:40 06/11/17 05:40 Labs: Short CBC 06/11/17 Range/Units 05:40 WBC 6.6 (4.3-11.1) K/mcL Hgb 8.9 L (11.5-15.4) g/dL Hct 28.3 L (35.3-44.9) % Plt Count 116 L (140-400) K/mcL Neutrophils # 5.3 (1.6-8.9) K/mcL BMP 06/11/17 05:40 Sodium 139 Potassium 3.2 L Chloride 111 H Carbon Dioxide 19 BUN 8 Creatinine 0.86 Glucose 95 Calcium 8.3 L - ABG Interpretation ABG results: PT/INR, D-dimer PT 14.7 Seconds (9.4-12.1) H 06/11/17 05:40 - Impressions Impressions Guidance Needle Placement Ultrasound 06/11/17 00:00 IMPRESSION: 1. Bladder cancer with question vesico-vaginal fistula. 2. Right percutaneous nephrostomy placement. 3. Exchange left nephrostomy. Plan: Return in 3 months for tube maintenance and exchange. D/ / Rocky Dial MD / Rocky Dial MD Interpreting Provider: Rocky Dial MD Nephrostomy 06/11/17 07:26 IMPRESSION: 1. Bladder cancer with question vesico-vaginal fistula. 2. Right percutaneous nephrostomy placement. 3. Exchange left nephrostomy. Plan: Return in 3 months for tube maintenance and exchange. D/ / Rocky Dial MD / Rocky Dial MD Interpreting Provider: Rocky Dial MD Nephrostomy Tube Change 06/11/17 07:26 IMPRESSION: 1. Bladder cancer with question vesico-vaginal fistula. 2. Right percutaneous nephrostomy placement. 3. Exchange left nephrostomy. Plan: Return in 3 months for tube maintenance and exchange. D/ / Rocky Dial MD / Rocky Dial MD Interpreting Provider: Rocky Dial MD Consult Discharge Plan - Plan Referrals: Arnold Calhoun DO [Primary Care Provider] - Palliative Quality Palliative Quality: Screen for Code Status: Yes, Screen for Goals of Care: Yes, Screen for Pain: Yes, If Pain Regimen Started, Initiate Bowel Regimen: NA, Screen for Nausea/Vomitting: Yes Code Status: 06/10/17 16:39 Resuscitation Status: Active [RES] Routine Comment: Resuscitation Status: DNR-Comfort Care-Arrest
[2017-06-11] MEDS: Ertapenem 1,000 MG in Water for inj. (sterile) 10 ML IVP SCH (16:04)
--- NOTE | 2017-06-11 17:37 | Internal Med Progress Note ---
Date of Encounter: 06/11/17 Time of Encounter: 09:00 - Assessment and plan (1) Bladder tumor Current Visit: No Status: Acute Assessment and plan: Urology consulted, nonresctable. Oncology consult appreciated. (2) Atrial fibrillation and flutter Current Visit: Yes Status: Chronic Assessment and plan: Heart rate is well controlled. Patient keeps NSR now. On Eliquis for anticoagulation. (3) COPD (chronic obstructive pulmonary disease) Current Visit: Yes Status: Chronic Assessment and plan: Stable, no signs of exacerbation. Continue Home medications Qualifiers: COPD type: chronic bronchitis Chronic bronchitis type: unspecified Qualified Code(s): J42 - Unspecified chronic bronchitis (4) Hydronephrosis Current Visit: Yes Status: Chronic Assessment and plan: Due to bladder cancer. Had nephrostomy tube placed by IR. Qualifiers: Hydronephrosis type: other Qualified Code(s): N13.39 - Other hydronephrosis (5) UTI (urinary tract infection) Current Visit: Yes Status: Suspected Assessment and plan: Urine culture reveals ESBL UTI, on ertapenem, may need home IV for cont ertapenem infusion. Qualifiers: Urinary tract infection type: acute cystitis Hematuria presence: without hematuria Qualified Code(s): N30.00 - Acute cystitis without hematuria (6) Anemia Current Visit: Yes Status: Chronic Assessment and plan: Patient is on iron pills. Hemoglobin is at baseline Qualifiers: Anemia type: iron deficiency Iron deficiency anemia type: chronic blood loss Qualified Code(s): D50.0 - Iron deficiency anemia secondary to blood loss (chronic) - Time Spent With Patient 25 - 35 minutes - Subjective Interval history: Patient was seen and examined. Complained of low back pain, needed pain medication. No fever. Vitals are stable. Had Rt nephrostomy and replacement of left nephrostomy tube today. Patient has ESBL UTI, on Ertapenem. May need home IV setup upon discharge. - Constitutional Vitals: Temp Pulse Resp BP Pulse Ox 98.2 F 57 18 120/66 93 06/11/17 16:03 06/11/17 16:03 06/11/17 17:27 06/11/17 16:03 06/11/17 17:27 General appearance: Present: A&O X 3, no acute distress, answers questions appropriately - Head Head exam: Present: atraumatic, normocephalic - Eye Eye exam: Present: PERRL, conjuntiva pink, sclera anicteric Pupils: Present: PERRL - Neck Neck exam general surgery: Present: supple, trachea midline. Absent: lymphadenopathy - Respiratory Respiratory exam: Present: CTAB. Absent: accessory muscle use, rales, rhonchi, wheezes - Cardiovascular Cardiovascular exam: Present: RRR, +S1, +S2. Absent: diastolic murmur, gallop, rubs, systolic murmur - GI/Abdominal GI/Abdominal exam: Present: normal bowel sounds, soft, no peritoneal signs. Absent: distended, tenderness Additional comments: Nephrostomy tube in place bilaterally - Extremities Exam Extremities exam: Present: warm, radial pulses palpable and symmetrical. Absent : calf tenderness, cyanotic, pedal edema - Neurological Exam Neurological exam: Present: CN II-XII intact, oriented X3, no focal deficits. Absent: pronater drift, facial droop, speech deficit - Skin Skin exam: Present: dry, intact Internal Medicine: Result - Labs CBC & Chem 7: 06/11/17 05:40 06/11/17 05:40 Labs: Short CBC 06/11/17 Range/Units 05:40 WBC 6.6 (4.3-11.1) K/mcL Hgb 8.9 L (11.5-15.4) g/dL Hct 28.3 L (35.3-44.9) % Plt Count 116 L (140-400) K/mcL Neutrophils # 5.3 (1.6-8.9) K/mcL BMP 06/11/17 05:40 Sodium 139 Potassium 3.2 L Chloride 111 H Carbon Dioxide 19 BUN 8 Creatinine 0.86 Glucose 95 Calcium 8.3 L - ABG Interpretation ABG results: PT/INR, D-dimer PT 14.7 Seconds (9.4-12.1) H 06/11/17 05:40 - Impressions Impressions Guidance Needle Placement Ultrasound 06/11/17 00:00 IMPRESSION: 1. Bladder cancer with question vesico-vaginal fistula. 2. Right percutaneous nephrostomy placement. 3. Exchange left nephrostomy. Plan: Return in 3 months for tube maintenance and exchange. D/ / Rocky Dial MD / Rocky Dial MD Interpreting Provider: Rocky Dial MD Nephrostomy 06/11/17 07:26 IMPRESSION: 1. Bladder cancer with question vesico-vaginal fistula. 2. Right percutaneous nephrostomy placement. 3. Exchange left nephrostomy. Plan: Return in 3 months for tube maintenance and exchange. D/ / Rocky Dial MD / Rocky Dial MD Interpreting Provider: Rocky Dial MD Nephrostomy Tube Change 06/11/17 07:26 IMPRESSION: 1. Bladder cancer with question vesico-vaginal fistula. 2. Right percutaneous nephrostomy placement. 3. Exchange left nephrostomy. Plan: Return in 3 months for tube maintenance and exchange. D/ / Rocky Dial MD / Rocky Dial MD Interpreting Provider: Rocky Dial MD - VTE Documentation of Mechanical Device: Intermittent pneumatic compression device Consult Discharge Plan - Plan Referrals: Arnold Calhoun DO [Primary Care Provider] -
[2017-06-11] MEDS: Lactobacillus 1 EACH CAP.SPRINK PO SCH (21:14)
[2017-06-11] MEDS: APIXABAN 5 MG TABLET PO SCH (21:15)
[2017-06-12] MEDS: *HR* HYDROcodone/Acet 5/325 mg TABLET PO PRN (00:13)
[2017-06-12] MEDS: Ipratropium/Albuterol Neb 3 ML IH SCH ×2 (04:17→09:29)
[2017-06-12 05:22] LABS: Basophils % 0.2 %; Eosinophils # 0.1 K/mcL (0.0-0.6); Hematocrit 25.4 % (35.3-44.9); Hemoglobin 8.1 g/dL (11.5-15.4); Immature Granulocytes % 0.6 % (0-4); Lymphocytes # 0.9 K/mcL (0.6-4.6); Lymphocytes % 18.1 %; Mean Corpuscular HGB Conc 31.9 g/dL (31.6-35.5); Mean Corpuscular Hemoglobin 30.8 pg (28.0-33.3); Mean Corpuscular Volume 96.6 fL (83.0-100.0); Monocytes # 0.3 K/mcL (0.0-1.3); Monocytes % 5.1 %; Neutrophils # 3.9 K/mcL (1.6-8.9); Nucleated Red Blood Cells 0.4 /100 WBC (0); Platelet Count 117 K/mcL (140-400); Red Blood Count 2.63 M/mcL (3.82-4.97); Red Cell Distribution Width 16.7 % (11.5-14.5)
[2017-06-12 05:46] LABS: BUN/Creatinine Ratio 12 (6-26); Blood Urea Nitrogen 10 mg/dL (7-20); Carbon Dioxide 22 mEq/L (19-29); Chloride 112 mEq/L (98-109); Potassium 3.7 mEq/L (3.5-4.5); Sodium 142 mEq/L (136-145); eGFR For African Americans > 60 (> 60)
[2017-06-12 05:47] LABS: Calcium 8.6 mg/dL (8.6-10.8); Glucose 105 mg/dL (70-99); Osmolality,Calculated 293 (280-300); eGFR For Non-African Americans > 60 (> 60)
[2017-06-12] MEDS: Ertapenem 1,000 MG in Water for inj. (sterile) 10 ML IVP SCH (07:57)
[2017-06-12] MEDS: APIXABAN 5 MG TABLET PO SCH (07:57)
[2017-06-12] MEDS: Diltiazem CD (24hr) 180 MG CAPSULE PO SCH (07:57)
[2017-06-12] MEDS: Multivit/Ca/Min/Fe/FA 1 TAB TABLET PO SCH (07:57)
[2017-06-12 08:24] VITALS: BP 134/72
--- NOTE | 2017-06-12 09:50 | Discharge Summary ---
Date of Encounter: 06/12/17 Time of Encounter: 09:48 - Discharge Diagnosis (1) UTI (urinary tract infection) Priority: Primary Status: Acute Qualifiers: Urinary tract infection type: acute cystitis Hematuria presence: without hematuria Qualified Code(s): N30.00 - Acute cystitis without hematuria (2) Bladder tumor Priority: Secondary Status: Chronic (3) Bladder cancer Priority: Secondary Status: Chronic Qualifiers: Bladder location: unspecified site Qualified Code(s): C67.9 - Malignant neoplasm of bladder, unspecified (4) Atrial fibrillation and flutter Priority: Secondary Status: Chronic (5) COPD (chronic obstructive pulmonary disease) Priority: Secondary Status: Chronic Qualifiers: COPD type: chronic bronchitis Chronic bronchitis type: unspecified Qualified Code(s): J42 - Unspecified chronic bronchitis (6) Hydronephrosis Priority: Primary Status: Resolved Qualifiers: Hydronephrosis type: other Qualified Code(s): N13.39 - Other hydronephrosis (7) Anemia Priority: Secondary Status: Chronic Qualifiers: Anemia type: iron deficiency Iron deficiency anemia type: chronic blood loss Qualified Code(s): D50.0 - Iron deficiency anemia secondary to blood loss (chronic) - Discharge Medications Prescriptions: Ertapenem [INVanz] 1,000 mg IVPB DAILY #10 vial Oxycodone HCl/Acetaminophen [Percocet 10-325 mg Tablet] 1 each PO Q4H #30 tablet Home Medications: Atorvastatin [Lipitor] 40 mg PO HS 08/21/16 [History] Lactobacillus Combo No.10 [Probiotic] 1 cap PO HS 08/21/16 [History] Metoprolol [Lopressor] 50 mg PO BID 08/21/16 [History] Multivitamin [Multi-Day Vitamins] 1 tab PO DAILY 08/21/16 [History] Docusate [Colace] 100 mg PO BID PRN #60 capsule 12/18/16 [Rx] Diltiazem CD (24hr) [Cardizem CD] 180 mg PO DAILY 01/08/17 [History] Apixaban [Eliquis] 2.5 mg PO BID #60 tablet 01/26/17 [Rx] Ferrous Sulfate [Iron] 325 mg PO DAILY 03/09/17 [History] Promethazine [Phenergan] 12.5 mg PO Q6HR PRN #30 tablet 05/11/17 [Rx] LORazepam [Ativan] 0.5 mg PO BID PRN #30 tablet 06/01/17 [Rx] Citalopram Hydrobromide [Citalopram HBr] 40 mg PO DAILY 06/08/17 [History] Acetaminophen [Tylenol] 650 mg PO Q6HR PRN tablet 06/12/17 [Rx] Ertapenem [INVanz] 1,000 mg IVPB DAILY #10 vial 06/12/17 [Rx] Oxycodone HCl/Acetaminophen [Percocet 10-325 mg Tablet] 1 each PO Q4H #30 tablet 06/12/17 [Rx] Allergies/Adverse Reactions: 3 Allergy/AdvReac Type Severity Reaction Status Date / Time No Known Allergies Allergy Verified 03/09/17 11:13 Procedures/tests Complete & Pending: Procedures Performed prior 72 hours Category Date Time Status IR nephrostomy [IR] Routine IR 06/11/17 07:26 Completed IR nephrostomy tube change [IR] Routine IR 06/11/17 07:26 Completed IR us guide needle place [IR] Routine IR 06/11/17 Completed Date of admission: 06/09/17 01:09 Primary care physician: Arnold Calhoun DO Consults: 06/09/17 07:50 Consult to Urology [CONS] Routine Consulting Provider: Urology [place] Reason for Consult: Hydronephrosis Call Completed: Yes 06/10/17 16:39 Consult to Palliative Care [CONS] Routine Comment: Consulting Provider: Palliative Care [place] Reason for Consult: End stage bladder tumor Call Completed: No 06/11/17 07:25 Consult to Interventional Radiology [CONS] Routine Consulting Provider: Radiology Interventional Cols Reason for Consult: Need Rt nephrostomy, also plz check if the left side need to replace or not Call Completed: Yes Discharging clinician: [place] Carolina Anticipated date of discharge: 06/12/17 - Patient Status Disposition: Home Health Service Condition: Good Functional capacity at discharge: independent ambulation Overall status at discharge: patient is progressing back to baseline - Discharge Instructions Instructions: Urinary Tract Infection in Women (DC), Chronic Obstructive Pulmonary Disease (DC), Anemia (GEN) Follow Up With: Pierre Ricci DO [Resident] - 06/18/17 5:00 pm - Diet and Activity Activity: resume usual activities as tolerated Diet: low salt diet Interval History: See below Hospital course: Ms. 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 She has an additional past medical history of chronic anemia, depression thromboses on eliquis, hypertension, atrial flutter status post ablation in 2008 and COPD. She has received 3 days of intravenous antibioticsZosyn. Yesterday 1210 2016, she was changed to ertapenem IV based on cultures. She also had replacement of Lt nephrostomy tube and IR-guided placement of Rt nephrostomy tube placed . She is seen and evaluated at the bedside this morning, she denies new complaints , she is ambulatory and able to do her daily activities. She is asking to be discharged home. 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 She is clinically stable to be discharged home to complete 10 more days of IV antibiotics for complicated ESBL UTI. Palliative care reviewed the patient during this admission, patient has changed her CODE STATUS to DO NOT RESUSCITATE. She has also stated to pursue any further immunotherapy, or chemotherapy. Plan of care was discussed with her. At the bedside and with the patient, and he verbalizes understanding. Follow-up with primary care physician. - Time Spent with Patient Total time spent providing and/or coordinating discharge services: Greater than 30 minutes (50 mins) - Constitutional Vitals: Temp Pulse Resp BP Pulse Ox 98.1 F 60 20 134/72 92 06/12/17 08:05 06/12/17 08:05 06/12/17 09:30 06/12/17 08:05 06/12/17 09:30 General appearance: Present: A&O X 3, pleasant, no acute distress, answers questions appropriately - Head Head exam: Present: atraumatic, normocephalic - Eye Eye exam: Present: PERRL, conjuntiva pink, sclera anicteric Pupils: Present: PERRL - Neck Neck exam general surgery: Present: supple, trachea midline. Absent: lymphadenopathy - Respiratory Respiratory exam: Present: CTAB. Absent: accessory muscle use, rales, rhonchi, wheezes - Cardiovascular Cardiovascular exam: Present: RRR, +S1, +S2. Absent: diastolic murmur, gallop, rubs, systolic murmur - GI/Abdominal GI/Abdominal exam: Present: normal bowel sounds, soft, no peritoneal signs. Absent: distended, tenderness - Extremities Exam Extremities exam: Present: warm, radial pulses palpable and symmetrical. Absent : calf tenderness, cyanotic, pedal edema - Neurological Exam Neurological exam: Present: alert, CN II-XII intact, oriented X3, no focal deficits. Absent: pronater drift, facial droop, speech deficit - Skin Skin exam: Present: dry, intact - VTE Documentation of Mechanical Device: Intermittent pneumatic compression device
--- NOTE | 2017-06-12 09:51 | Physician Discharge Referral ---
Home Health/Hosp Referral Info Transfer to: Home Health Attending Provider: Raj Carolina Provider in Charge Post Discharge: PCP - Diagnosis (1) Bladder tumor Priority: Primary Status: Chronic (2) Atrial fibrillation and flutter Priority: Primary Status: Chronic (3) COPD (chronic obstructive pulmonary disease) Priority: Primary Status: Chronic (4) Hydronephrosis Priority: Primary Status: Resolved (5) Anemia Priority: Primary Status: Chronic (6) UTI (urinary tract infection) Priority: Primary Status: Acute - Respiratory Orders Oxygen / L per min Smoking Cessation: Smoking cessation has been advised. For more information, call the [place] Tobacco Quit Line at 8-205-CCIN-NOW. - Diet/Nutrition Diet/Nutrition Orders: Renal, Cardiac - Activity Activity Orders: Up ad jake - Services Needed Following services are medically necessary services: Nursing, Home Health Aide, Home Infusion - Transfer Medications Prescriptions: Ertapenem [INVanz] 1,000 mg IVPB DAILY #10 vial Oxycodone HCl/Acetaminophen [Percocet 10-325 mg Tablet] 1 each PO Q4H #30 tablet Home Medications: Atorvastatin [Lipitor] 40 mg PO HS 08/21/16 [History] Lactobacillus Combo No.10 [Probiotic] 1 cap PO HS 08/21/16 [History] Metoprolol [Lopressor] 50 mg PO BID 08/21/16 [History] Multivitamin [Multi-Day Vitamins] 1 tab PO DAILY 08/21/16 [History] Docusate [Colace] 100 mg PO BID PRN #60 capsule 12/18/16 [Rx] Diltiazem CD (24hr) [Cardizem CD] 180 mg PO DAILY 01/08/17 [History] Apixaban [Eliquis] 2.5 mg PO BID #60 tablet 01/26/17 [Rx] Ferrous Sulfate [Iron] 325 mg PO DAILY 03/09/17 [History] Promethazine [Phenergan] 12.5 mg PO Q6HR PRN #30 tablet 05/11/17 [Rx] LORazepam [Ativan] 0.5 mg PO BID PRN #30 tablet 06/01/17 [Rx] Citalopram Hydrobromide [Citalopram HBr] 40 mg PO DAILY 06/08/17 [History] Acetaminophen [Tylenol] 650 mg PO Q6HR PRN tablet 06/12/17 [Rx] Ertapenem [INVanz] 1,000 mg IVPB DAILY #10 vial 06/12/17 [Rx] Oxycodone HCl/Acetaminophen [Percocet 10-325 mg Tablet] 1 each PO Q4H #30 tablet 06/12/17 [Rx] Allergies/Adverse Reactions: 3 Allergy/AdvReac Type Severity Reaction Status Date / Time No Known Allergies Allergy Verified 03/09/17 11:13 Certification: Further, I certify that my clinical findings support that this patient is homebound (i.e. absences from home require considerable and taxing effort and are for medical reasons or temple services or infrequently or short duration when for other reasons) because: Homebound Reason: Patient requires assistance of a person or device to safely leave home Attestation: My signature below is to certify that this patient is under my care and that I, or nurse practitioner, or a physician's learning and development assistant working with me, has a face-to -face encounter with this patient.
--- NOTE | 2017-06-12 10:30 | Event Note ---
Date of Encounter: 06/12/17 Time of Encounter: 10:30 Patient to be discharged home with [facility] for IV antibiotics today. She did complete DNR state form as DNR-Arrest and completed healthcare POA naming brother Billy as primary agent. Discussed briefly once again that if she decides she does not desire further immunotherapy, I would recommend hospice enrollment, and discussed the symptom management and support they could offer at home. Pt/brother verbalized understanding.
--- NOTE | 2017-06-12 12:42 | Electrocardiograph Report ---
[facility] Neurostim Test Date: 2017-06-08 Pat Name: Coni Felton Department: [id number] Room: 3A63 Gender: F Credentialing Specialist: [facility] : 1950 Requested By: Crow Nicolas Order Number: [id number] Reading MD: Bienveniod Hart MD Measurements Intervals [place] Rate: 60 P: 81 UT: 150 QRS: -44 QRSD: 137 T: 14 QT: 432 QTc: 433 Interpretive Statements SINUS RHYTHM MARKED LEFT AXIS DEVIATION RIGHT BUNDLE BRANCH BLOCK Electronically Signed On 06-12-2017 12:40:39 EST by Bienvenido Hart MD
[2017-06-12 20:51] LABS: Kappa Qnt Free Light Chains 40.1 mg/dL (0.33-1.94); Lambda Qnt Free Light Chains 2.06 mg/dL (0.57-2.63)
[2017-06-13 08:54] LABS: Alpha 2 Globulin (PEP) 1.22 g/dL (0.48-1.05); Beta Globulin (PEP) 0.72 g/dL (0.48-1.10)
[2017-06-13 08:57] LABS: IFE Reflexed NOT DONE
== END 2017-06-12 12:34 | disposition home health service (06) | DRG 694 ==
LOC: EMEROO 13:26 → 3ANU 13:26 → SUATTDRO 06-09 01:09
PROVIDERS: ADMIT Nurse Practitioner Family; ATTEND Internal Medicine